=== PATIENT | female | born 1985 | race Caucasian/White ===

== ENCOUNTER 2020-06-25 16:49 | Emergency (ER) | payer BC, SELFPAY ==
--- NOTE | 2020-06-25 16:45 | RT.EKG_ITS ---
APPROVED REPORT Exam: Resting ECG Patient Location: E HR:92 bpm ECG Measurements Heart Rate 92 AXIS IL 145 P 48 QRSd 81 QRS 60 QT 376 T 61 QTc 467 Conclusion Sinus rhythm...normal P axis, V-rate 60- 99. No STEMI. I have reviewed and interpreted ECG and agree with software generated interpretation.
[2020-06-25 16:55] VITALS: BP 141/80; PULSE 109; RESP 18; TEMP 37.1; O2SAT 99
--- NOTE | 2020-06-25 17:35 | W.ED.GENAD ---
Discharge Plan Disposition Patient Disposition: HOME Condition: Stable Discharge Details Clinical Impression: Medication reaction, Anxiety Primary Care Provider: [facility],Local ED Provider: Janneth Sharif Home Meds and New Rx's Prescriptions: Continued aripiprazole [Abilify] 5 mg Tablet 2.5 mg PO QHS RF: 0 Discharge Instructions Instructions: Aripiprazole (By mouth), Anxiety (ED) Additional Instructions: Your blood work, EKG and chest x-ray today did not show any abnormal findings. It seems likely that your symptoms may be side effects from taking Abilify. Stop taking your Abilify today. Speak to your psychiatrist about starting a different antianxiety or antidepressant medication once your current symptoms resolved. Take the Ativan that you were given for home as needed for symptoms of anxiety or to help with sleep. Return immediately to the emergency department if you develop any worsening or new concerning symptoms. Discharge Data Discharge Date/Time-TO BE ENTERED AT DEPARTURE: 06/25/20 18:20 Discharge Physician: Janneth Sharif Medical Decision Making 1714 -- 34-year-old female with a history of anxiety and depression who was started on Abilify 1 week ago and has been having symptoms of restlessness, tachycardia, difficulty sleeping and anxiety since starting the medication. EKG notes a rate of 92, sinus without acute ST-T wave ischemic changes. Heart rate 109. She is afebrile and appears nontoxic but does appear mildly restless and anxious. Suspect most likely medication reaction but considering patient's age and history of Nexplanon, will check screening labs, urine , chest x-ray and give fluids and reassess. 1914 -- Labs and imaging reviewed and unremarkable. Normal d-dimer, troponin and TSH. Chest x-ray negative. Patient reassessed and she feels slightly better since arrival. She was offered a dose of Ativan but declined. We will send home with Ativan to help with sleep if needed. She is advised to stop taking her Abilify and to call her psychiatrist to be started on a different antianxiety or antidepressant medication once her symptoms resolve. Advised to follow up with the primary care doctor for re-evaluation. Usual and customary return precautions given prior to discharge. Medical Records Medical records reviewed: Yes I reviewed the patient's medical records. Imaging Data Radiologic Study: Radiologist's impression: Chest x-ray: Impression: No evidence for acute abnormality Lab Data Lab results reviewed: Yes I reviewed the patient's lab results. Labs: Laboratory Tests Range/Units 06/25/20 06/25/20 06/25/20 17:24 17:34 17:34 WBC (4.4-10.8) 10^3/uL 9.36 RBC (3.93-5.22) 10^6/uL 4.69 Hgb (11.2-15.7) g/dL 13.7 Hct (36.0-46.0) % 41.6 MCV (80-95) fL 88.7 MCH (27.0-33.0) pg 29.2 MCHC (32.0-36.0) % 32.9 RDW (11.7-14.6) % 12.0 Plt Count (130-400) 10^3/uL 392 MPV (8.0-11.0) fL 9.0 Immature Gran % 0.3 Neutrophils % 68.5 Lymphocytes % 23.9 Monocytes % 6.6 Eosinophils % 0.5 Basophils % 0.2 Nucleated RBC % % 0 Absolute Neutrophils (1.2-6.7) 10^3/uL 6.40 Absolute Lymphocytes (1.2-3.4) 10^3/uL 2.24 Absolute Monocytes (0.1-0.8) 10^3/uL 0.62 Absolute Eosinophils (0.0-0.7) 10^3/uL 0.05 Absolute Basophils (0.0-0.2) 10^3/uL 0.02 PT (9.3-11.0) sec INR (0.9-1.1) APTT (21.0-31.4) sec D-Dimer (<500) ng/mlFEU Sodium (136-145) mmol/L 139 Potassium (3.5-5.1) mmol/L 3.6 Chloride (98-107) mmol/L 102 Carbon Dioxide (21.0-32.0) mmol/L 27.0 Anion Gap (3-11) mmol/L 10.0 BUN (7-18) mg/dL 12 Creatinine (0.55-1.02) mg/dL 0.85 Estimated GFR/1.73 m2 (mL/min/1.73m2) >= 60.00 Glucose (74-106) mg/dL 112 H Calcium (8.5-10.1) mg/dL 9.2 Magnesium (1.8-2.4) mg/dL 2.1 Total Bilirubin (0.2-1.0) mg/dL 0.4 AST (15-37) U/L 17 ALT (14-59) U/L 17 Alkaline Phosphatase (46-116) U/L 52 Troponin I (<0.06) ng/mL < 0.05 Total Protein (6.4-8.2) g/dL 8.3 H Albumin (3.4-5.0) g/dL 4.1 TSH (0.36-3.74) uIU/mL 1.55 Range/Units 06/25/20 06/25/20 17:34 17:34 WBC (4.4-10.8) 10^3/uL RBC (3.93-5.22) 10^6/uL Hgb (11.2-15.7) g/dL Hct (36.0-46.0) % MCV (80-95) fL MCH (27.0-33.0) pg MCHC (32.0-36.0) % RDW (11.7-14.6) % Plt Count (130-400) 10^3/uL MPV (8.0-11.0) fL Immature Gran % Neutrophils % Lymphocytes % Monocytes % Eosinophils % Basophils % Nucleated RBC % % Absolute Neutrophils (1.2-6.7) 10^3/uL Absolute Lymphocytes (1.2-3.4) 10^3/uL Absolute Monocytes (0.1-0.8) 10^3/uL Absolute Eosinophils (0.0-0.7) 10^3/uL Absolute Basophils (0.0-0.2) 10^3/uL PT (9.3-11.0) sec 10.6 INR (0.9-1.1) 1.1 APTT (21.0-31.4) sec 26.5 D-Dimer (<500) ng/mlFEU 218 Sodium (136-145) mmol/L Potassium (3.5-5.1) mmol/L Chloride (98-107) mmol/L Carbon Dioxide (21.0-32.0) mmol/L Anion Gap (3-11) mmol/L BUN (7-18) mg/dL Creatinine (0.55-1.02) mg/dL Estimated GFR/1.73 m2 (mL/min/1.73m2) Glucose (74-106) mg/dL Calcium (8.5-10.1) mg/dL Magnesium (1.8-2.4) mg/dL Total Bilirubin (0.2-1.0) mg/dL AST (15-37) U/L ALT (14-59) U/L Alkaline Phosphatase (46-116) U/L Troponin I (<0.06) ng/mL Total Protein (6.4-8.2) g/dL Albumin (3.4-5.0) g/dL TSH (0.36-3.74) uIU/mL ECG Data Attestation: I personally reviewed and interpreted this ECG (s) as follows: Interpretation: Rate of 92, sinus, no acute ST elevation or depression. CT 145. QRS 81. QTc 467. HPI General Mode of arrival: ambulatory. Date/Time Provider Initiated Documentation: 06/25/20 17:04. Limitations to Documentation: no limitations. Information obtained by: patient. HPI Narrative: Patient is a 34-year-old female with a history of anxiety and depression who presents with feelings of anxiety, restlessness, racing heart, nausea and difficulty sleeping for the past week. Patient states she found a psychiatrist online in [place] and she started her on Abilify 1 week ago for her anxiety and depression. She states she initially started her on 5 mg daily but due to the symptoms she decreased her dose to 2.5 which she has been taking for the last couple days. She states decreasing the dose did not change any of the symptoms. She does admit to some headaches and diarrhea since starting the medication but she denies any other new medications, supplements, energy drinks, excessive caffeine use, fever, nausea, vomiting, chest pain, shortness of breath, abdominal pain, urinary symptoms, recent travel, recent known sick contacts, hallucinations. She states she does have the Nexplanon. Related Data Home Medications Medication Instructions Recorded Confirmed aripiprazole [Abilify] 2.5 mg PO QHS 06/25/20 06/25/20 Allergies Allergy/AdvReac Type Severity Reaction Status Date / Time No Known Allergies Allergy Unverified 06/25/20 18:52 General Stated Complaint: Palpitatns SARAH: 3 Review of Systems All systems reviewed & are unremarkable except as noted in HPI and below Constitutional Constitutional: Reports as per HPI, Denies chills, Reports difficulty sleeping, Denies fever(s), Reports headache(s) and Reports other (restless) Eyes Eyes: Denies blurry vision ENT Ears, Nose, Mouth, and Throat: Denies dizziness, Reports headache(s), Denies sore throat and Denies throat swelling Cardiovascular Cardiovascular: Denies chest pain, Reports rapid heart rate and Denies dyspnea Respiratory Respiratory: Denies cough and Denies dyspnea Gastrointestinal Gastrointestinal: Denies abdominal pain, Denies diarrhea and Denies vomiting Genitourinary Genitourinary: Denies hematuria and Denies dysuria Musculoskeletal Musculoskeletal: Denies back pain and Denies numbness Integumentary/Breasts Skin/Breast: Denies lesions and Denies rash Neurologic Neurologic: Denies dizziness, Reports headache(s), Denies localized weakness, Denies numbness and Reports restless legs Allergic/Immunologic Allergic/Immunologic: Denies throat swelling PFSH Medical History (Updated 06/25/20 @ 19:18 by Janneth Sharif DO) Anxiety Depression Surgical History (Updated 06/25/20 @ 19:18 by Janneth Sharif DO) No significant past surgical history Social History Smoking/Tobacco Use Status: Never Alcohol Intake: current Alcohol Intake frequency: 0-2 drinks per day Drug use: Never Substance use type: does not use Do you feel safe at home: Yes Do you feel safe in your relationship?: Yes Exam Const General: cooperative, healthy appearing, no acute distress and anxious (mild) Orientation: alert, awake and oriented x3 HENMT Head: normal to inspection Face and sinus: normal facial exam Eyes General: appearance normal, both eyes and all related structures Pupils: PERRL EOM: EOM intact bilaterally Neck Neck: normal visual inspection and No submandibular swelling Lymphatic: no lymphadenopathy noted Chest Chest: normal inspection of the chest and no tenderness Resp Effort & Inspection: normal respiratory effort and able to speak in complete sentences Auscultation: clear to auscultation bilaterally Cardio Rate: tachycardic Rhythm: regular rhythm GI Inspection: normal to inspection Palpation: soft, not firm, not rigid and nontender Auscultation: normal bowel sounds Back/Spine/Pelvis Thoracic/Lumbar Spine: thoracic and lumbar spine normal to inspection Skin General skin exam: no rashes or lesions noted Neuro General: patient alert, patient awake and patient oriented x3 Cognition: normal cognition Speech: speech normal Motor: muscle tone normal throughout Sensory Exam: no sensory deficits noted Extrem General: normal to inspection, full ROM, capillary refill normal, no calf tenderness bilaterally and no edema Psych Appearance: grossly normal Mental Status: mental status grossly normal Speech and Movement: speech and movement normal Affect: normal affect Course Vital Signs Vital signs: Vital Signs Temperature 98.8 F 06/25/20 16:55 Pulse 109 H 06/25/20 16:55 Respiratory Rate 18 06/25/20 16:55 Blood Pressure 141/80 H 06/25/20 16:55 Pulse Oximetry 99 06/25/20 16:55 Temperature 98.8 F 06/25/20 16:55 Temperature Source Temporal Artery Scan 06/25/20 16:55 Pulse 109 H 06/25/20 16:55 Respiratory Rate 18 06/25/20 16:55 Respiratory Effort Non-Labored 06/25/20 16:59 Blood Pressure 141/80 H 06/25/20 16:55 Blood Pressure Position Sitting 06/25/20 16:55 Pulse Oximetry 99 06/25/20 16:55 Oxygen Delivery Method Room Air 06/25/20 16:55 Oxygen Flow Rate 0 06/25/20 16:55
[2020-06-25 17:47] LABS: Abs Immature Grans 0.03 10^3/uL (0.0-0.06); Absolute Basophil Count 0.02 10^3/uL (0.0-0.2); Absolute Eosinophil Count 0.05 10^3/uL (0.0-0.7); Absolute Lymphocyte Count 2.24 10^3/uL (1.2-3.4); Absolute Monocyte Count 0.62 10^3/uL (0.1-0.8); Basophils % 0.2; Eosinophils % 0.5; HCT 41.6 % (36.0-46.0); HGB 13.7 g/dL (11.2-15.7); Immature Grans % 0.3; Lymphocytes % 23.9; MCH 29.2 pg (27.0-33.0); MCHC 32.9 % (32.0-36.0); MCV 88.7 fL (80-95); Monocytes % 6.6; Neutrophils % 68.5; Nucleated RBC 0 %; Platelet Count 392 10^3/uL (130-400); RBC 4.69 10^6/uL (3.93-5.22); RDW-SD 38.5 fL; WBC 9.36 10^3/uL (4.4-10.8)
[2020-06-25 18:01] LABS: INR 1.1 (0.9-1.1); PTT Activated 26.5 sec (21.0-31.4); Prothrombin Time 10.6 sec (9.3-11.0)
[2020-06-25 18:03] LABS: ALT 17 U/L (14-59); AST 17 U/L (15-37); Albumin 4.1 g/dL (3.4-5.0); Alkaline Phosphatase 52 U/L (46-116); BUN 12 mg/dL (7-18); Bilirubin, Total 0.4 mg/dL (0.2-1.0); CREATININE 0.85 mg/dL (0.55-1.02); Calcium 9.2 mg/dL (8.5-10.1); Chloride 102 mmol/L (98-107); Glucose 112 mg/dL (74-106); Magnesium 2.1 mg/dL (1.8-2.4); Potassium 3.6 mmol/L (3.5-5.1); Sodium 139 mmol/L (136-145); Total Protein 8.3 g/dL (6.4-8.2); Troponin I < 0.05 ng/mL (<0.06)
--- NOTE | 2020-06-25 18:15 | DI.RAD_ITS ---
EXAM: XR CHEST 2V PA LATERAL CLINICAL HISTORY: palpitations, r/o acute disease TECHNIQUE: 2D digital imaging was performed. COMPARISON: No exams were available for comparison FINDINGS: MEDIASTINUM: Normal. HEART: Normal. PULMONARY VASCULATURE: Normal. LUNGS: Clear. PLEURAL SPACE: No pleural effusion or pneumothorax. BONE:Within normal limits for the patient's age. OTHER FINDINGS:Normal. IMPRESSION: No acute pulmonary findings. DATA REPOSITORY: RADIATION DOSE DELIVERED:
[2020-06-25] MEDS: Normal Saline 1,000 ML 1000 ML IV (18:18)
[2020-06-25 18:22] LABS: D-Dimer 218 ng/mlFEU (<500)
[2020-06-25 18:36] LABS: TSH (W/Ref FT4) 1.55 uIU/mL (0.36-3.74)
[2020-06-25] MEDS: LORazepam 0.5 MG TAB 1 MG PO (19:21)
[2020-06-25] MEDS: Normal Saline Flush 10 ML SYR IVP (19:21)
[2020-06-25 19:27] VITALS: BP 113/60; PULSE 92; TEMP 36.7; O2SAT 97
--- NOTE | 2020-07-01 16:03 | DI.VRAD_ITS ---
PROCEDURE INFORMATION: Exam: XR Chest, 2 Views Exam date and time: 06/25/2020 6:42 PM Age: 34 years old Clinical indication: Other: Palpitations; Additional info: R/O acute disease TECHNIQUE: Imaging protocol: XR of the chest Views: 2 views. COMPARISON: No relevant prior studies available. FINDINGS: Lungs: Unremarkable. No consolidation. Pleural space: Unremarkable. No pleural effusion. No pneumothorax. Heart/Mediastinum: Unremarkable. No cardiomegaly. Bones/joints: Unremarkable. IMPRESSION: No evidence for acute abnormality. Dictated and Authenticated by: Gi Adan MD. Ordering:TINO Lagunas MD
== END 2020-06-25 18:20 | disposition home or self-care (01) ==
LOC: ER 19:15
PROVIDERS: Emergency Provider Physician Assistant
DX: F41.8 Other specified anxiety disorders (principal); R00.0 Tachycardia, unspecified; R45.1 Restlessness and agitation; T43.505A Adverse effect of unspecified antipsychotics and neuroleptics, initial encounter
CPT/HCPCS: 36415; 80053; 81025; 93005; 96360; 99285; 71046; 83735; 84443; 84484; 85025; 85379; 85610; 85730; 93010

== ENCOUNTER 2020-08-27 22:26 | Outpatient (REF) | payer BC, SELFPAY ==
[2020-08-27 22:09] LABS: Anion Gap 13.2 mmol/L (3-11); BUN 14 mg/dL (7-18); CO2 23.8 mmol/L (21.0-32.0); CREATININE 0.92 mg/dL (0.55-1.02); Calcium 9.2 mg/dL (8.5-10.1); Chloride 102 mmol/L (98-107); Glucose 92 mg/dL (74-106); Potassium 3.8 mmol/L (3.5-5.1); Sodium 139 mmol/L (136-145)
== END 2020-08-27 22:46 ==
LOC: NCHCN 22:26
PROVIDERS: PCP Nurse Practitioner Family; Visit Provider Nurse Practitioner Family
DX: Z00.00 Encounter for general adult medical examination without abnormal findings (principal)
CPT/HCPCS: 80048

== ENCOUNTER 2020-09-28 08:01 | Day surgery (SDC) | payer BC, SELFPAY ==
[2020-09-28 08:41] VITALS: BP 111/67; PULSE 69; RESP 18; TEMP 36.3; O2SAT 100
--- NOTE | 2020-09-28 10:20 | SOFT_PTH ---
PATIENT: Luana Camacho LOC: [facility] U#:[id number] AGE/SX: 34/F ROOM: RE09/28/[address]: Lydia Carl : 1985 BED: DIS: 09/28/2020 SPEC #: [id number] RECD: 09/28/20 12:08 STATUS: RACIEL REQ #: [id number] PETER: 09/28/20 10:[address]: Lydia Carl DEPT: Surgical Specimen RECD BY: Jeanna Child ENTERED: 09/28/20 12:09 SP TYPE: SOFT OTHR DR: Paula Grey Tissues: 1 - SOFT TISSUE MISC (INC. LIPOMA) Procedures: GROSS AND MICRO LEVEL 3 Comments: [id number]
[2020-09-28] MEDS: Bupivacaine 0.25% Pres-Free 30 ML VIAL ×2 (10:31)
[2020-09-28] MEDS: Bupivacaine LIPOSOME/PF 133 MG/10 ML VIAL IJ (10:31)
--- NOTE | 2020-09-28 10:54 | W.PM.DSUDISC ---
Discharge Plan Disposition Patient Disposition: HOME Condition: Good Discharge Details Reason For Visit: lipoma removal Attending Provider: Lydia Carl Primary Care Provider: Paula Grey Home Meds and New Rx's Prescriptions: New tramadol [Ultram] 50 mg tablet 50 mg PO Q6H PRNQty: 14 RF: 0 Continued bupropion HCl [Wellbutrin XL] 150 mg tablet extended release 24 hr 150 mg PO QAM RF: 0 Nexplanon 68 mg implant 1 implant subdermal ONCE RF: 0 lithium orotate PO RF: 0 Discharge Instructions Additional Instructions: Findings:lipoma fatty tumor Follow up:10 days for suture removal Please call if you develop: fevers >101.5 Nausea or Vomiting Abdominal pain that is not transient DAY SURGERY UNIT POST Procedure INSTRUCTIONS 1. Because there will be medication in your system for the next 24 hours, you may feel a little sleepy. Your coordination will be affected. Therefore: a. Do not drive or operate dangerous equipment for 24 hours. b. Do not drink alcohol beverages for 24 hours (not even beer). c. Plan to go home and rest for the day. Caring for Your Incision Pain Control Use ice! Ice keeps the swelling down and swelling is what causes pain. Never apply ice directly to the skin. Wrap it in a towel or cloth. Apply ice 20 minutes on and 20 minutes off for pain control. Use as needed. Take tylenol 325 mg by mouth with food every 4 hours as needed for pain. Or ibuprofen 600 mg by mouth with food every 6 hours as needed for pain. Do not take tylenol if you have a history of heavy drinking , hepatits C or liver problems. Do not take ibuprofen if you have a history of stomach ulcers/problems, bleeding problem or kidney issues. Types of incision closures ? Surgical stitches (sutures) are placed by sewing the edges of an incision together with surgical thread. Sutures are either absorbable or non-absorbable. Absorbable sutures break down in the body over time. Non-absorbable sutures need to be removed. ? Home care ? Always wash your hands before touching your incision. ? Keep the incision clean, dry, and out of water, keep the incision out of water. ? Do not to pick at the scabs. Scabs help protect the wound. ? You can take a shower in 24 hours and wash the incision with soap and water. Pat dry/don?t scrub. It?s OK to wash around the incision. But don?t spray water directly on it. ? Pat stitches dry if they get wet. Don't rub. ? Check the incision site daily for pain, redness, drainage, swelling, or separation of the incision edges. ? If there is a bandage (dressing) over the incision, change this every 24 hours as instructed by your provider. Using clean hands change the dressing as directed by your healthcare provider. Always wash your hands before changing your dressing. ? Make sure any clothing that touches the incision is loose-fitting. This will prevent rubbing. If the incision is on the head, keep your child from wearing caps or other head coverings. These may rub against the incision. ? Try to avoid from rough play, contact sports, or physical activities for two weeks. This can put you at risk of opening the incision. ? Make sure you avoid doing things that could cause dirt or sweat to get in or on the incision. As your incision heals, the skin may appear pink or red. It may also feel slightly bumpy or raised. This is called a healing ridge. Over time, the color should fade and the raised skin will become less noticeable. Care for specific closures : ? Sutures or evans. Once you no longer need to keep these dry, clean the incision or wound daily, generally after the first 24 hours. First remove the bandage using clean hands. Then wash the area gently with soap and warm water. Use a wet cotton swab to loosen and remove any blood or crust that forms. After cleaning, put a thin layer of antibiotic ointment on. Then put on a new bandage. Follow-up care [place] or sutures generally need to be removed in 7-10 days. Be sure to return for suture or staple removal as directed. If dissolving stitches were used in your mouth, these will not need to be removed. They should fall out or dissolve on their own. If tape closures were used, remove them yourself when your healthcare provider tells you to if they have not fallen off on their own. When to seek medical care Call your healthcare provider right away if you have any of these: ? More pain, redness, swelling, bleeding, or foul-smelling discharge around the incision area ? Fever of 101?F (38.3?C) or higher, or as directed by your child's healthcare provider ? Shaking chills ? Vomiting or nausea that doesn?t go away ? Numbness, coldness, or tingling around the incision area, or changes in skin color ? Opening of the sutures or wound Stitches or evans come apart or fall out or surgical tape falls off before 7 days, or as directed by your healthcare provider [facility] to make appt karla/ Dr. Cral in 7-10 days. [phone] Signature of Patient or Responsible Adult Escort Date/Time Name of Responsible Adult Escort Signature of Nurse Date/Time Activity:: no lifting over 10#'s x 2wks Remove Dressings/Wound Care:: 24 hours Shower/Bathe:: 24 hours Diet:: As Tolerated
--- NOTE | 2020-09-28 11:08 | ROE_ITS ---
Date of service: 09/28/20 Time of Service: 11:08 Operative Note Operative Note DATE OF PROCEDURE: 09/28/20 PRE-OP DIAGNOSIS: lipoma POST-OP DIAGNOSIS: same excision lipoma PROCEDURE: excision lipoma SURGEON: Lydia Carl ANESTHESIA: local ESTIMATED BLOOD LOSS: 5 PATHOLOGY: other COMPLICATIONS: None Patient was transported to: same day Procedure Description: The pt is here today for lipoma removal. Patient is seen in same-day surgery and marked. There is a 2 x 2 inch lipoma of the right axilla. There is no active infection/skin changes or changes in size. Informed consent obtained, explaining risks and benefits of procedure including but not limited to: Bleeding, infection, scarring, damage to nerves loss of motor function or sensory function, recurrence, chronic pain, chronic numbness, risk of scarring and disfigurement, recurrence, reaction to local anesthetics. Patient is brought to the procedure room and placed in the supine position with her right arm Placed behind her head. A timeout is performed. The area is prepped and draped in usual sterile fashion using a ChloraPrep scrub solution. 40 cc of quarter percent Marcaine was used for local anesthetization. A 1 inch incision is made over the apex of the lipoma; electrocautery is used to provide hemostasis and assist in dissection. it is grasped with a [place]. Is dissected out with combination of sharp and electrocautery as dissection. It is approximately 2 x 2 inches. There is no bleeding noted. The cavity does not require a drain. Deep tissues approximated with 3-0 Vicryl and skin is approximated with 3-0 Prolene. Sterile compression dressing is applied. Patient tolerated the procedure well without complication and transferred to the same-day surgery unit. The specimen is sent for pathology. Patient is given instructions in wound care, activity and warning signs, and will follow up in 10 days for suture removal and to review her pathology. Prescriptions include ibuprofen and Ultram.
[2020-09-28] MEDS: Acetaminophen 500 MG TAB 1000 MG PO (11:14)
[2020-09-28 11:17] VITALS: BP 117/76; PULSE 81; RESP 20; TEMP 36.2; O2SAT 99
== END 2020-09-28 11:58 | disposition home or self-care (01) ==
PROVIDERS: PCP Nurse Practitioner Family; Visit Provider Surgery
PROC: (CPT 24071; principal; 2020-09-28 09:00)
DX: Q83.1 Accessory breast (principal)
CPT/HCPCS: 24071; 88304

== ENCOUNTER 2021-11-18 13:47 | Outpatient (REF) | payer OTHER, SELFPAY ==
[2021-11-18 16:01] LABS: HCT 43.6 % (36.0-46.0); HGB 13.7 g/dL (11.2-15.7); MCH 29.2 pg (27.0-33.0); MCHC 31.4 % (32.0-36.0); MPV 9.7 fL (8.0-11.0); Platelet Count 336 10^3/uL (130-400); RBC 4.69 10^6/uL (3.93-5.22); RDW 12.4 % (11.7-14.6); RDW-SD 42.5 fL; WBC 6.63 10^3/uL (4.4-10.8)
[2021-11-18 16:48] LABS: ALT 29 U/L (14-59); AST 17 U/L (15-37); Anion Gap 7.4 mmol/L (3-11); BUN 12 mg/dL (7-18); CO2 27.6 mmol/L (21.0-32.0); CREATININE 0.9 mg/dL (0.55-1.02); Calcium 9.2 mg/dL (8.5-10.1); Calculated LDL 152 mg/dL (<100); Chloride 106 mmol/L (98-107); Cholesterol 235 mg/dL (<200); Glucose 80 mg/dL (74-106); HDL Cholesterol 55 mg/dL (40-60); Potassium 5.2 mmol/L (3.5-5.1); Sodium 141 mmol/L (136-145); Triglyceride 140 mg/dL (<150)
== END 2021-11-18 13:48 | disposition home or self-care (01) ==
LOC: NCHCN 13:47
PROVIDERS: PCP Nurse Practitioner Family; Visit Provider Nurse Practitioner Family
DX: Z00.00 Encounter for general adult medical examination without abnormal findings (principal)
CPT/HCPCS: 80048; 80061; 85027; 84450; 84460

== ENCOUNTER → 2022-01-18 00:52 | Outpatient (CLI) | payer BC, SELFPAY ==
--- NOTE | 2022-01-18 | DI.US_ITS ---
Exam(s) MG MAMMO DIAGNOSTIC BI US BREAST LT LIMITED EXAM: MAMMO DIAGNOSTIC BI CLINICAL HISTORY: DIAGNOSTIC, LUMP LT BREAST, N63.10. TECHNIQUE: Craniocaudal and mediolateral oblique Full Field Digital Mammography views with Computer Aided Diagnosis followed by Tomosynthesis and left breast ultrasound. COMPARISON: Baseline examination. FINDINGS: Mammography/Tomosynthesis: Masses/Architectural Distortion: None seen. Microcalcifictions: Scattered benign calcifications bilaterally no suspicious pleomorphic-type are se en. Skin Thickening/Nipple Retraction: None. Left breast US: Echotexture: Normal appearance of the glandular tissue. Shadowing: No suspicious foci. Cyst: 1.2 x0.9 x 1.1 centimeter simple cyst which corresponds to the palpable abnormality. Solid lesions: None seen. Ductal dilation: None. IMPRESSION: 1. 1.2 centimeter simple cyst corresponding to palpable abnormality. No evidence of malignancy is no lindsay. 2. Unless there is more urgent need, follow-up screening mammography is recommended, as per [place] [employer] guidelines. . BI-RADS Category 2 - Benign Findings Breast Density - Category C - Heterogeneously dense Breast density category C or D implies that the patient has dense breast tissue. Dense breast tissue is very common and is not abnormal but dense breast tissue can make it harder to find cancer on a ma mmogram. Also, dense breast tissue may increase their breast cancer risk. This information about the result of the mammogram report was provided to the patient to raise their awareness. Use this report when you speak with the patient about their risks for breast cancer, which includes their family hist ory. At that time, you may recommend for more screening tests (Ultrasound or MRI) as they might be us eful based on their risk. A negative radiographic report should not delay biopsy if a dominant or clinically suspicious mass is present. Up to ten percent of cancers are not identified on mammography. A negative report may reinforce clinical impression. Adenosis and dense breasts may obscure an underlying neoplasm. False positive reports average 6 to 10%. Patient will receive a letter notifying them of these results.
== END ==
PROVIDERS: PCP Nurse Practitioner Family; Visit Provider Nurse Practitioner Family
DX: N63.25 Unspecified lump in the left breast, overlapping quadrants (principal); N60.02 Solitary cyst of left breast
CPT/HCPCS: 76642; 77062; 77066; G0279

== ENCOUNTER 2022-07-12 03:20 | Outpatient (CLI) | payer BC, SELFPAY ==
[2022-07-12 11:22] LABS: Kit/Specimen SENT
[2022-07-12 11:27] LABS: Abs Immature Grans 0.03 10^3/uL (0.0-0.06); Absolute Basophil Count 0.02 10^3/uL (0.0-0.2); Absolute Eosinophil Count 0.05 10^3/uL (0.0-0.7); Absolute Lymphocyte Count 2.24 10^3/uL (1.2-3.4); Absolute Monocyte Count 0.63 10^3/uL (0.1-0.8); Basophils % 0.2; Eosinophils % 0.5; HGB 12.2 g/dL (11.2-15.7); Immature Grans % 0.3; Lymphocytes % 21.2; MCH 29.8 pg (27.0-33.0); MCV 91 fL (80-95); MPV 9.3 fL (8.0-11.0); Neutrophils % 71.8; Platelet Count 259 10^3/uL (130-400); RBC 4.09 10^6/uL (3.93-5.22); RDW 12.8 % (11.7-14.6); RDW-SD 41.9 fL; WBC 10.57 10^3/uL (4.4-10.8)
[2022-07-12 12:15] LABS: TSH (W/Ref FT4) 1.08 uIU/mL (0.36-3.74)
[2022-07-13 08:20] LABS: Hepatitis B Surface Ag Negative (Negative)
[2022-07-13 08:55] LABS: HIV-1/2 Ag & Ab Screen Negative (Negative)
[2022-07-13 09:11] LABS: Hepatitis C Ab w Rflx HCV PCR Negative (Negative)
[2022-07-13 09:43] LABS: Varicella IgG Antibody Positive (See Note)
[2022-07-13 09:48] LABS: Rubella IgG Ab (UVM) Positive (See Note)
[2022-07-13 19:53] LABS: Syphilis IgG w/Reflex Nonreactive (Nonreactive)
[2022-07-15 01:47] LABS: Specimen WB Whole Blood
[2022-08-02 22:25] LABS: Result Summary NEGATIVE; Specimen WB Whole Blood
== END 2022-07-12 03:21 | disposition home or self-care (01) ==
LOC: LBO 03:21
PROVIDERS: PCP Nurse Practitioner Family; Visit Provider Advanced Practice Midwife
DX: O09.511 Supervision of elderly primigravida, first trimester (principal); F41.8 Other specified anxiety disorders; Z36.89 Encounter for other specified antenatal screening; Z3A.11 11 weeks gestation of pregnancy
CPT/HCPCS: 36415; 81220; 81222; 81329; 86787; 86803; 86850; 86900; 86901; 87340; 87389; 84443; 85025; 86762; 86780

== ENCOUNTER 2022-07-12 11:37 | Outpatient (REF) | payer BC, SELFPAY ==
--- NOTE | 2022-07-12 10:15 | PAPFT_PTH ---
PATIENT: Luana Camacho LOC: [facility] U#:[id number] AGE/SX: 36/F ROOM: RE07/12/[address]: Myriam Kern : 1985 BED: DIS: 07/12/2022 SPEC #: [id number] RECD: 07/12/22 13:23 STATUS: RACIEL REQ #: [id number] PETER: 07/12/22 10:[address]: Myriam Kern DEPT: [facility] Cytology RECD BY: Jeanna Child ENTERED: 07/12/22 13:24 SP TYPE: PAPFT OTHR DR: Paula Grey Tissues: 1 - CX/ENDOCX FOR PAP SMEARS Procedures: PAP THIN PREP/U[facility] Screening HPV DNA PROBE Comments: [id number]
[2022-07-12 12:04] LABS: *AMPHETAMINES SCREEN URINE Negative (Negative); *BARBITURATES SCREEN URINE Negative (Negative); *BENZODIAZEPINES SCREEN URINE Negative (Negative); Cannabinoids THC Negative (Negative); Cocaine Screen,Urine Negative (Negative); METHADONE URINE SCREEN Negative (Negative); OPIATES URINE SCREEN Negative (Negative)
[2022-07-12 12:05] LABS: Tricyclic Antidepressants Negative (Negative)
[2022-07-13 15:14] LABS: Chlamydia Result Negative (Negative); GC Result Negative (Negative)
[2022-07-18 16:04] LABS: Buprenorphine Negative ng/mL (Cutoff: 5.0); Norbuprenorphine Negative ng/mL (Cutoff: 2.5)
== END 2022-07-12 11:38 | disposition home or self-care (01) ==
LOC: LBN 11:37
PROVIDERS: PCP Nurse Practitioner Family; Visit Provider Advanced Practice Midwife
DX: Z34.91 Encounter for supervision of normal pregnancy, unspecified, first trimester; Z12.4 Encounter for screening for malignant neoplasm of cervix; Z11.51 Encounter for screening for human papillomavirus (HPV); F41.9 Anxiety disorder, unspecified
CPT/HCPCS: 80307; 80348; 87491; 87591; 88142; 87086; 87624

== ENCOUNTER 2022-08-16 12:33 | Outpatient (CLI) | payer BC, SELFPAY ==
[2022-08-17 16:28] LABS: AFP 53.7 ng/mL; Cigarette smoking status non-Smoker; GA used in risk estimate Scan estimate; IVF Pregnancy No; Initial or repeat testing Initial testing; Insulin dependent diabetes No; Maternal Weight 127 lbs; Number of Fetuses 1; Physician Phone Number 802-748-7300; Prev Pregnancy w/NTD No; RECOMMENDED FOLLOW UP None.; Results Summary Normal risk
== END 2022-08-16 12:34 | disposition home or self-care (01) ==
LOC: LBO 12:38
PROVIDERS: PCP Nurse Practitioner Family; Visit Provider Advanced Practice Midwife
DX: Z34.92 Encounter for supervision of normal pregnancy, unspecified, second trimester (principal); Z3A.16 16 weeks gestation of pregnancy; Z36.89 Encounter for other specified antenatal screening
CPT/HCPCS: 36415; 82105

== ENCOUNTER 2022-11-10 02:12 | Outpatient (CLI) | payer OTHER, SELFPAY ==
[2022-11-10 09:00] LABS: HCT 35.9 % (36.0-46.0); HGB 11.7 g/dL (11.2-15.7); MCH 30.2 pg (27.0-33.0); MCHC 32.6 % (32.0-36.0); MCV 93 fL (80-95); MPV 9.4 fL (8.0-11.0); Platelet Count 217 10^3/uL (130-400); RBC 3.88 10^6/uL (3.93-5.22); RDW 12.9 % (11.7-14.6); RDW-SD 43.4 fL; WBC 9.26 10^3/uL (4.4-10.8)
[2022-11-10 09:11] LABS: Glucose,1 Hr (Glucola) 121 mg/dL (80-140)
== END 2022-11-10 02:13 | disposition home or self-care (01) ==
LOC: LBO 02:12
PROVIDERS: PCP Nurse Practitioner Family; Visit Provider Obstetrics & Gynecology Gynecology
DX: Z34.93 Encounter for supervision of normal pregnancy, unspecified, third trimester (principal); O26.893 Other specified pregnancy related conditions, third trimester; Z67.91 Unspecified blood type, Rh negative
CPT/HCPCS: 36415; 82950; 85027; 86850; 86900; 86901; 90384

== ENCOUNTER 2022-12-26 07:25 | Outpatient (CLI) | payer OTHER, SELFPAY | END 2022-12-26 08:59 | LOC: BCD 07:26 → OBS 07:43 | PROVIDERS: PCP Nurse Practitioner Family; Visit Provider Obstetrics & Gynecology ==

== ENCOUNTER 2023-01-02 08:48 | Outpatient (CLI) | payer OTHER, SELFPAY ==
[2023-01-02 09:35] VITALS: BP 115/80; PULSE 83; TEMP 36.7
[2023-01-02 09:37] VITALS: BP 115/80; PULSE 83
--- NOTE | 2023-01-02 12:03 | W.OBNST ---
Date of service: 01/02/23 Time of Service: 12:03 NST Evaluation Reason for NST Reasons for Nonstress Test: ADVANCED MATERNAL AGE Gestational Age Gestational Age in Weeks and Days: 36 Weeks and 3Days Test and Monitor Explained Test/Monitor Explained: Test Explained, Monitor Explained and Patient Verbalized Understanding Vital Signs Blood Pressure: 115/80 Pulse: 83 Temperature: 98.1 F Urine Results Urine Protein: Negative Urine Ketones: Negative Urine Glucose: Negative Urine Blood: Negative NST Information Date on Monitor: 01/02/23 Time on Monitor: 09:32 Date off Monitor: 01/02/23 Time off Monitor: 09:54 Total Time on Monitor: 22 NST Interventions: None Contraction Frequency: 1-7 NST Evaluation Patient States Movement: Present FHR Baseline: 135 Variability: Moderate 6-25 bpm Accelerations: 15x15 Decelerations: None NST Results: Reactive Note Ultrasound Done: N/A. NST Note Note: Category 1, reactive nonstress test. Intermittent irregular contractions. Cervical exam performed, cervix is fingertip, 50%, soft, posterior. Group B strep culture performed. NST Reviewed and Verified by: Jayde Ceron
[2023-01-02 12:04] VITALS: BP 115/80; PULSE 83; TEMP 36.7
== END 2023-01-02 10:16 | disposition home or self-care (01) ==
LOC: BCD 08:57 → OBS 09:34
PROVIDERS: PCP Nurse Practitioner Family; Visit Provider Obstetrics & Gynecology
DX: O09.523 Supervision of elderly multigravida, third trimester (principal); Z3A.36 36 weeks gestation of pregnancy
CPT/HCPCS: 59025; 87081

== ENCOUNTER 2023-01-05 07:43 | Outpatient (CLI) | payer OTHER, SELFPAY ==
[2023-01-05 09:21] VITALS: BP 123/77; PULSE 81; TEMP 36.7
[2023-01-05 09:23] VITALS: BP 123/77; PULSE 81
--- NOTE | 2023-01-09 19:14 | W.OBNST ---
Date of service: 01/05/23 Time of Service: 19:14 NST Evaluation Reason for NST Reasons for Nonstress Test: ADVANCED MATERNAL AGE Gestational Age Gestational Age in Weeks and Days: 37 Weeks and 3Days Test and Monitor Explained Test/Monitor Explained: Test Explained, Monitor Explained and Patient Verbalized Understanding Vital Signs Blood Pressure: 123/77 Pulse: 81 Temperature: 98.1 F NST Information Date on Monitor: 01/05/23 Time on Monitor: 09:22 Date off Monitor: 01/05/23 Time off Monitor: 09:45 Total Time on Monitor: 23 NST Interventions: PO Hydration Contraction Frequency: 2-4 NST Evaluation Patient States Movement: Present FHR Baseline: 135 Variability: Moderate 6-25 bpm Accelerations: 15x15 Decelerations: None NST Results: Reactive Note Ultrasound Done: N/A. NST Note Note: Patient notified that GBS rectovaginal culture was negative. She will continue to follow-up with twice weekly NSTs. NST Reviewed and Verified by: Sherrill Gardiner
[2023-01-09 19:15] VITALS: BP 123/77; PULSE 81; TEMP 36.7
== END 2023-01-05 09:54 | disposition home or self-care (01) ==
LOC: BCD 07:55 → OBS 09:02
PROVIDERS: PCP Nurse Practitioner Family; Visit Provider Obstetrics & Gynecology Gynecology
DX: O09.523 Supervision of elderly multigravida, third trimester (principal); Z3A.37 37 weeks gestation of pregnancy
CPT/HCPCS: 59025

== ENCOUNTER 2023-01-09 09:27 | Outpatient (CLI) | payer OTHER, SELFPAY ==
[2023-01-09 09:38] VITALS: BP 114/70; PULSE 88; TEMP 36.7
[2023-01-09 09:40] VITALS: BP 114/70; PULSE 88
--- NOTE | 2023-01-09 19:19 | W.OBNST ---
Date of service: 01/09/23 Time of Service: 19:19 NST Evaluation Reason for NST Reasons for Nonstress Test: ADVANCED MATERNAL AGE Gestational Age Gestational Age in Weeks and Days: 37 Weeks and 3Days Test and Monitor Explained Test/Monitor Explained: Test Explained, Monitor Explained and Patient Verbalized Understanding Vital Signs Blood Pressure: 114/70 Pulse: 88 Temperature: 98.0 F Urine Results Urine Protein: Negative Urine Ketones: Negative Urine Glucose: Negative Urine Blood: Negative NST Information Date on Monitor: 01/09/23 Time on Monitor: 09:29 Date off Monitor: 01/09/23 Time off Monitor: 09:51 Total Time on Monitor: 22 NST Interventions: PO Hydration Contraction Frequency: 6-10 NST Evaluation Patient States Movement: Present FHR Baseline: 135 Variability: Moderate 6-25 bpm Accelerations: 15x15 Decelerations: None NST Results: Reactive Note Ultrasound Done: N/A. NST Note NST Reviewed and Verified by: Sherrill Gardiner
[2023-01-09 19:20] VITALS: BP 114/70; PULSE 88; TEMP 36.7
== END 2023-01-09 10:10 | disposition home or self-care (01) ==
LOC: BCD 09:28 → OBS 09:36
PROVIDERS: PCP Nurse Practitioner Family; Visit Provider Obstetrics & Gynecology Gynecology
DX: O09.523 Supervision of elderly multigravida, third trimester (principal); Z3A.37 37 weeks gestation of pregnancy
CPT/HCPCS: 59025

== ENCOUNTER 2023-01-12 07:20 | Outpatient (CLI) | payer OTHER, SELFPAY ==
[2023-01-12 09:38] VITALS: BP 121/88; PULSE 88; TEMP 36.5
[2023-01-12 09:50] VITALS: BP 121/88; PULSE 104
[2023-01-12 09:52] VITALS: BP 119/73; PULSE 88
--- NOTE | 2023-01-12 22:35 | W.OBNST ---
Date of service: 01/12/23 Time of Service: 22:35 NST Evaluation Reason for NST Reasons for Nonstress Test: ADVANCED MATERNAL AGE Gestational Age Gestational Age in Weeks and Days: 37 Weeks and 6Days Test and Monitor Explained Test/Monitor Explained: Test Explained, Monitor Explained and Patient Verbalized Understanding Vital Signs Blood Pressure: 121/88 Pulse: 88 Temperature: 97.7 F NST Information Date on Monitor: 01/12/23 Time on Monitor: 09:39 Date off Monitor: 01/12/23 Time off Monitor: 09:58 Total Time on Monitor: 19 NST Interventions: None NST Evaluation Patient States Movement: Present FHR Baseline: 130 Variability: Moderate 6-25 bpm Accelerations: 15x15 Decelerations: None NST Results: Reactive Note Ultrasound Done: N/A. NST Note Note: Briefly discussed timing of induction of labor with patient. I recommended considering induction of labor between 39 and 40 weeks EGA. We will discuss further at the time of her next NST. NST Reviewed and Verified by: Sherrill Gardiner
[2023-01-12 22:36] VITALS: BP 121/88; PULSE 88; TEMP 36.5
== END 2023-01-12 10:00 | disposition home or self-care (01) ==
LOC: BCD 07:21 → OBS 09:37
PROVIDERS: PCP Nurse Practitioner Family; Visit Provider Obstetrics & Gynecology Gynecology
DX: O09.523 Supervision of elderly multigravida, third trimester (principal); Z3A.37 37 weeks gestation of pregnancy
CPT/HCPCS: 59025

== ENCOUNTER 2023-01-16 07:40 | Outpatient (REF) | payer OTHER, SELFPAY ==
[2023-01-16 09:43] VITALS: BP 124/77; PULSE 81; TEMP 36.8
[2023-01-16 10:04] VITALS: BP 124/77; PULSE 81
== END 2023-01-16 10:45 | disposition home or self-care (01) ==
LOC: BCD 07:40
PROVIDERS: PCP Nurse Practitioner Family; Visit Provider Obstetrics & Gynecology Gynecology
DX: O09.529 Supervision of elderly multigravida, unspecified trimester (principal)
CPT/HCPCS: 59025

== ENCOUNTER 2023-01-19 07:38 | Outpatient (CLI) | payer OTHER, SELFPAY ==
[2023-01-19 09:34] VITALS: BP 114/75; PULSE 73; TEMP 36.5
[2023-01-19 10:34] VITALS: BP 114/75; PULSE 73; TEMP 36.5
--- NOTE | 2023-01-19 10:34 | W.OBNST ---
Date of service: 01/19/23 Time of Service: 10:34 NST Evaluation Reason for NST Reasons for Nonstress Test: ADVANCED MATERNAL AGE Gestational Age Gestational Age in Weeks and Days: 38 Weeks and 6Days Test and Monitor Explained Test/Monitor Explained: Test Explained, Monitor Explained and Patient Verbalized Understanding Vital Signs Blood Pressure: 114/75 Pulse: 73 Temperature: 97.7 F Urine Results Urine Protein: Positive Urine Ketones: Negative Urine Glucose: Negative Urine Blood: Negative NST Information Date on Monitor: 01/19/23 Time on Monitor: 09:08 Date off Monitor: 01/19/23 Time off Monitor: 09:43 Total Time on Monitor: 35 NST Interventions: PO Hydration Contraction Frequency: Occasional NST Evaluation Patient States Movement: Present FHR Baseline: 125 Variability: Moderate 6-25 bpm Accelerations: 15x15 Decelerations: None NST Results: Reactive Note Ultrasound Done: N/A. NST Note Note: Category 1, reactive nonstress test. Follow-up as scheduled. NST Reviewed and Verified by: Jayde Ceron
== END 2023-01-19 09:45 | disposition home or self-care (01) ==
LOC: BCD 07:45 → OBS 09:32
PROVIDERS: PCP Nurse Practitioner Family; Visit Provider Obstetrics & Gynecology Gynecology
DX: O09.523 Supervision of elderly multigravida, third trimester (principal); Z3A.38 38 weeks gestation of pregnancy
CPT/HCPCS: 59025

== ENCOUNTER 2023-01-23 08:47 | Outpatient (CLI) | payer OTHER, SELFPAY ==
[2023-01-23 09:33] VITALS: BP 130/78; PULSE 73; TEMP 36.7
[2023-01-23 09:37] VITALS: BP 130/78; PULSE 73
[2023-01-23 09:47] VITALS: BP 132/83; PULSE 67
--- NOTE | 2023-01-26 17:21 | W.OBNST ---
Date of service: 01/26/23 Time of Service: 17:21 NST Evaluation Reason for NST Reasons for Nonstress Test: ADVANCED MATERNAL AGE Gestational Age Gestational Age in Weeks and Days: 39 Weeks and 6Days Test and Monitor Explained Test/Monitor Explained: Test Explained, Monitor Explained and Patient Verbalized Understanding Vital Signs Blood Pressure: 130/78 Pulse: 73 Temperature: 98.1 F NST Information Date on Monitor: 01/23/23 Time on Monitor: 09:34 Date off Monitor: 01/23/23 Time off Monitor: 09:47 Total Time on Monitor: 13 NST Interventions: PO Hydration Contraction Frequency: 3-5 NST Evaluation Patient States Movement: Present FHR Baseline: 130 Variability: Moderate 6-25 bpm Accelerations: 15x15 Decelerations: None NST Results: Reactive Note Ultrasound Done: N/A. NST Note Note: Repeat blood pressure 128/80. No headache no right upper quadrant pain no lower extremity edema. I reviewed signs and symptoms of preeclampsia. The patient will follow-up in 4 days for repeat NST secondary to advanced maternal age. She declines a induction of labor at this time. NST Reviewed and Verified by: Sherrill Gardiner
[2023-01-26 17:22] VITALS: BP 130/78; PULSE 73; TEMP 36.7
== END 2023-01-23 10:00 | disposition home or self-care (01) ==
LOC: BCD 08:50 → OBS 09:31
PROVIDERS: PCP Nurse Practitioner Family; Visit Provider Obstetrics & Gynecology Gynecology
DX: Z3A.39 39 weeks gestation of pregnancy (principal); O09.523 Supervision of elderly multigravida, third trimester
CPT/HCPCS: 59025

== ENCOUNTER 2023-01-26 07:27 | Outpatient (CLI) | payer OTHER, SELFPAY ==
[2023-01-26 09:35] VITALS: BP 117/79; PULSE 67; TEMP 36.8
[2023-01-26 09:37] VITALS: BP 117/79; PULSE 67
[2023-01-26 10:04] VITALS: BP 123/81; PULSE 74
--- NOTE | 2023-01-26 17:17 | PDOC.NST_ITS ---
Date of service: 01/26/23 Time of Service: 17:17 NST Evaluation Reason for NST Reasons for Nonstress Test: ADVANCED MATERNAL AGE Gestational Age Gestational Age in Weeks and Days: 39 Weeks and 6Days Test and Monitor Explained Test/Monitor Explained: Test Explained, Monitor Explained and Patient Verbalized Understanding Vital Signs Blood Pressure: 117/79 Pulse: 67 Temperature: 98.2 F NST Information Date on Monitor: 01/26/23 Time on Monitor: 09:36 Date off Monitor: 01/26/23 Time off Monitor: 10:00 Total Time on Monitor: 24 NST Interventions: PO Hydration Contraction Frequency: 2 contractions NST Evaluation Patient States Movement: Present FHR Baseline: 130 Variability: Moderate 6-25 bpm Accelerations: 15x15 Decelerations: None NST Results: Reactive Note Ultrasound Done: N/A. NST Note Note: Patient presents for scheduled twice weekly NST for advanced maternal age. Patient reports [place] contractions but no evidence of labor. No complaints of headache or lower extremity edema. SVE: Closed mid position -1 vertex. Discussed with patient induction of labor after 40 weeks. She will consider scheduling a date when she is seen for her repeat NST on 01/30/2023. NST Reviewed and Verified by: Sherrill Gardiner
[2023-01-26 17:19] VITALS: BP 117/79; PULSE 67; TEMP 36.8
== END 2023-01-26 10:09 | disposition home or self-care (01) ==
LOC: BCD 07:29 → OBS 09:15
PROVIDERS: PCP Nurse Practitioner Family; Visit Provider Obstetrics & Gynecology Gynecology
DX: O09.523 Supervision of elderly multigravida, third trimester (principal); Z3A.39 39 weeks gestation of pregnancy
CPT/HCPCS: 59025

== ENCOUNTER 2023-01-29 06:30 | Inpatient (IN) | payer OTHER, SELFPAY ==
[2023-01-29] VITALS (216 sets, daily range): BP systolic 68–188; BP diastolic 37–133; PULSE 0–113; RESP 14–20; TEMP 36.4–37.2; O2SAT 91–99; BMI 31.3
--- NOTE | 2023-01-29 06:38 | HPE_ITS ---
Date of service: 01/29/23 Time of Service: 06:38 Assessment and Plan Assessment and plan (1) Rh negative state in antepartum period: Status: Acute (2) Threatened labor at term: Status: Acute Assessment and plan: SROM approximately 3 hours ago. Clear amniotic fluid GBS negative. I recommended oxytocin augmentation of labor if the patient is not experiencing regular uterine contractions approximately 3 hours. CMP has been ordered along with CBC and type and screen. OB-HPI Labor/Delivery History of Present Illness Reason for Visit: [id number] EGA, SROM Group B Strep Neg Chief Complaint: Suspected Rupture of Membranes , Associated Signs and Symptoms of Suspected ROM: 0430 awakened with clear fluid on pad. KENYA Calculator Estimated Delivery Date Method Current WG Current Estimate 01/27/23 Ultrasound #1 40w 2d Other Estimates 01/19/23 LMP (Uncertain) 41w 3d History of Present Expected Delivery Route/Plan - FOB - Jimmy Santacruz (his first child) Specific Issues/Plan 1. History of anxiety and depression- no meds currently and doing well. 3. Advanced maternal age - level [address] [facility] sent, ASA recommended daily due to hypertension risk -Presumed EDC discrepancy because [facility] had incorrect EDC from our records and thought there was a 2wk discrepancy. -KENYA 01/27/23 based on 8.4wk sono done here (8 days off from LMP dating and she had irregular cycles) 4. Rh neg, rhogam 28 weeks____ 5. SMA neg, CF neg, MS AFP = nml risk for NTD 2. Vaccinated against covid - booster 07/08 - Had covid 2021. Assessment: History Reviewed & Current Narrative: 18 visits, including NSTs, Rh-, GBS negative, rubella immune varicella immune. Twice-weekly NSTs after 36 weeks secondary to advanced maternal age. Informed Consent Informed Consent: Risk,Benefits,Alternatives Discussed (admission) Review of Systems Constitutional Constitutional: Reports system reviewed and no additional complaints, except as documented and Reports body ache(s) PFSH All Active Problems (Updated 01/29/23 @ 07:12 by Sherrill Gardiner MD) Threatened labor at term (Acute) Rh negative state in antepartum period (Acute) Advanced maternal age, 1st (Acute) (Acute) Lipoma of breast (Acute) per referral note left axilla Medical History (Updated 01/29/23 @ 07:12 by Sherrill Gardiner MD) Anxiety Depression buproprion in the past Surgical History No significant past surgical history Family History (Updated 07/12/22 @ 09:46 by Myriam Kern CNM) Maternal Grandfather Heart disease Paternal Grandfather Cancer Social History Smoking/Tobacco Use Status: Never Smoking risk assessment performed?: Yes Alcohol Intake: current Alcohol Intake frequency: a few times a week Alcohol type: hard liquor Drug use: Occasionally Details: mushrooms, t-14, alcohol, t-3 Current gender identity: female Do you feel safe at home: Yes Do you feel safe in your relationship?: Yes History History 1 Para 0 Hx # Term Pregnancies Multiple births Hx # Pregnancies Ectopic pregnancies AB induced Hx Number of Living Children AB spontaneous Meds Allergies and Home Medications Allergies Allergy/AdvReac Type Severity Reaction Status Date / Time lamotrigine [From Lamictal] Allergy Intermediate pain in Verified 12/22/22 15:34 neck, feverish aripiprazole [From Abilify] AdvReac Intermediate Started to Verified 12/22/22 15:34 feel weak and off Home Medications Medication Instructions Recorded Confirmed Type omega 1-ycx-vsr-fish oil 100 cap PO 06/21/22 01/08/23 History mg-160 mg-1,000 mg capsule (Fish Oil) prenat.vits,jeffery,nri-kxdq-pblnt 1 tab PO DAILY 06/21/22 01/08/23 History aspirin 81 mg chewable tablet 81 mg PO DAILY 08/09/22 01/08/23 History Exam Physical Exam Vital signs: Temp Pulse Resp BP 97.8 F 74 16 133/82 01/29/23 06:14 01/29/23 06:14 01/29/23 06:14 01/29/23 06:14 Vital Signs Reviewed: Yes Notable Details: Patient blood pressure has ranged in the 130/80s last week. Narrative: No complaints of headache, no visual changes Constitutional Constitutional: no acute distress Comments: Patient unaware of contractions at this time Detailed Labor and Delivery Exam Dilation: 1 Effacement (%): 25 station: -2 Cervix position: mid Consistency: firm Venegas Score: Cervical Points Exam 0 1 2 3 Dilation Closed 1-2cm 3-4 cm 5-6cm Effacement 0-30% 40-50% 60-70% 80% Consistency Firm Medium Soft Station -3 -2 -1,0 +1,+2 Position Posterior Mid Anterior VENEGAS Score(Cervical Ripeness Score): 4 Amniotic Membrane Status: Ruptured (As demonstrated by nitrazine exam and pooling in the vagina) Rupture Method: Spontaneous Amniotic Fluid: Clear Pooling: Positive Nitrazine: Positive Monitor Mode: External Contraction Frequency(min): 4 Contraction Duration(sec): 40 Contraction Intensity: Mild Fetus A Heart Rate Baseline: 150 Monitor Accelerations: 15 X 15 Monitor Decelerations: None Variability: Moderate (6-25 BPM) Presentation: Cephalic Categories: Category I Est. Weight: 3600 lb Date of Membrane Rupture: 01/29/23 Time of Membrane Rupture: 04:30 HEENT Exam HEENT Exam: Normal Neck Exam Neck Exam: Normal Chest/Brest/Axilla Exam Chest Exam: Not Done Breast Exam Breast Exam: Not Done Respiratory Exam Respiratory Exam: Normal Cardiovascular Exam Cardiovascular Exam: Normal Abdominal Exam Abdominal Exam: Normal (Abdominal tenderness) Rectal Exam Rectal Exam: Not Done Exam Exam: Normal Extremities Exam Extremities Exam: Normal Back/Spine/Pelvis Exam Back Exam: Normal Skin Exam Skin Exam: Normal (Tattoos present) Neurological Exam Neurological Exam: Normal (2+ DTRs lower extremities 1 beat of clonus bilaterally) Psychiatric Exam Psychiatric Exam: Normal Risk Assessment Risk for Shoulder Dystocia Historical/Initial OB: NEGATIVE FOR: Pelvic Abnormality, Pre- BMI>30, Previous Shoulder Dystocia or Previous Macrosomia Risk for Pre-Eclampsia Yes, if one or more: NEGATIVE FOR: Hx Pre-E/Gest HTN, Chronic HTN, Multiple Gestation, Pre-gestational DM, Renal Disease, Systemic Lupus or APA Syndrome Yes, if 2 or more: POSITIVE FOR: Nulliparity and Age>= 35 yrs Risk for Post- Hemorrhage Initial: NEGATIVE FOR: Multiple Gestation, Previous PPH, Known Clotting Deficiency, Grand Multiparity or Anticoagulation Risks Reviewed Risks Reviewed Upon Admission: Yes
[2023-01-29] MEDS: Normal Saline Flush 10 ML SYR IVP (08:56)
[2023-01-29 09:00] LABS: HCT 37.3 % (36.0-46.0); HGB 12.5 g/dL (11.2-15.7); MCH 30.3 pg (27.0-33.0); MCHC 33.5 % (32.0-36.0); MCV 90 fL (80-95); MPV 10.8 fL (8.0-11.0); Platelet Count 194 10^3/uL (130-400); RBC 4.13 10^6/uL (3.93-5.22); RDW 13.6 % (11.7-14.6); RDW-SD 44.1 fL; WBC 8.86 10^3/uL (4.4-10.8)
[2023-01-29 09:17] LABS: ALT 23 U/L (14-59); AST 19 U/L (15-37); Albumin 2.8 g/dL (3.4-5.0); Alkaline Phosphatase 141 U/L (46-116); BUN 11 mg/dL (7-18); Bilirubin, Total 0.3 mg/dL (0.2-1.0); CREATININE 0.8 mg/dL (0.55-1.02); Calcium 9.1 mg/dL (8.5-10.1); Chloride 101 mmol/L (98-107); Estimated GFR 98.48 (mL/min/1.73m2); Glucose 87 mg/dL (74-106); Potassium 3.9 mmol/L (3.5-5.1); Sodium 133 mmol/L (136-145); Total Protein 7.5 g/dL (6.4-8.2)
--- NOTE | 2023-01-29 11:07 | W.PM.OBNL1 ---
Date of service: 01/29/23 Time of Service: 11:07 Informed Consent Informed Consent: Risk,Benefits,Alternatives Discussed (admission) Pelvic Exam Dilation: 1 Effacement (%): 50 station: -2 Cervix Position: mid Assessment and Plan Assessment and plan (1) Normal labor: Status: Acute Assessment and plan: Spontaneous rupture of membranes greater than 6 hours. Irregular contractions. We will begin Pitocin augmentation of labor. Risks and benefits discussed Objective Abnormal lab results 01/29/23 Range/Units 08:46 Sodium 133 L (136-145) mmol/L Alkaline Phosphatase 141 H (46-116) U/L Albumin 2.8 L (3.4-5.0) g/dL Temp Pulse Resp BP 98.4 F 14 L 14 122/74 01/29/23 07:55 01/29/23 07:55 01/29/23 07:55 01/29/23 07:55 Laboratory Results WBC 8.86 10^3/uL (4.4-10.8) 01/29/23 08:46 RBC 4.13 10^6/uL (3.93-5.22) 01/29/23 08:46 Hgb 12.5 g/dL (11.2-15.7) 01/29/23 08:46 Hct 37.3 % (36.0-46.0) 01/29/23 08:46 MCV 90 fL (80-95) 01/29/23 08:46 MCH 30.3 pg (27.0-33.0) 01/29/23 08:46 MCHC 33.5 % (32.0-36.0) 01/29/23 08:46 RDW 13.6 % (11.7-14.6) 01/29/23 08:46 Plt Count 194 10^3/uL (130-400) 01/29/23 08:46 MPV 10.8 fL (8.0-11.0) 01/29/23 08:46 Sodium 133 mmol/L (136-145) L 01/29/23 08:46 Potassium 3.9 mmol/L (3.5-5.1) 01/29/23 08:46 Chloride 101 mmol/L (98-107) 01/29/23 08:46 Carbon Dioxide 24.0 mmol/L (21.0-32.0) 01/29/23 08:46 Anion Gap 8.0 mmol/L (3-11) 01/29/23 08:46 BUN 11 mg/dL (7-18) 01/29/23 08:46 Creatinine 0.8 mg/dL (0.55-1.02) 01/29/23 08:46 Est GFR (CKD-EPI 2020) 98.48 (mL/min/1.73m2) 01/29/23 08:46 Glucose 87 mg/dL (74-106) 01/29/23 08:46 Calcium 9.1 mg/dL (8.5-10.1) 01/29/23 08:46 Total Bilirubin 0.3 mg/dL (0.2-1.0) 01/29/23 08:46 AST 19 U/L (15-37) 01/29/23 08:46 ALT 23 U/L (14-59) 01/29/23 08:46 Alkaline Phosphatase 141 U/L (46-116) H 01/29/23 08:46 Total Protein 7.5 g/dL (6.4-8.2) 01/29/23 08:46 Albumin 2.8 g/dL (3.4-5.0) L 01/29/23 08:46 Subjective Interval history since last seen: Patient seen and examined. Occasional irregular contractions. Fetus. No Results Hemoglobin/Hematocrit: Hgb 12.5 g/dL (11.2-15.7) 01/29/23 08:46 Hct 37.3 % (36.0-46.0) 01/29/23 08:46 Abnormal Lab Findings: Abnormal Labs 01/29/23 08:46 Sodium 133 L Alkaline Phosphatase 141 H Albumin 2.8 L
[2023-01-29] MEDS: Lactated Ringers 1,000 ML 125 ML IV ×2 (13:15→20:41)
[2023-01-29] MEDS: Oxytocin/Normal Saline 30 UNIT/500 ML BAG 2 UNITS IV (13:16)
[2023-01-29] MEDS: Acetaminophen 325 MG TAB 650 MG PO (14:49)
--- NOTE | 2023-01-29 20:24 | NUR.NOTE ---
Nursing Note:Cxs noted to be coupling and tripling. Pt shown position changes/maneuvers to assist with descent. Lunges were previously performed, one leg up on stool etc... frequent position changes encouraged
--- NOTE | 2023-01-29 21:36 | W.PM.OBNL1 ---
Date of service: 01/29/23 Time of Service: 21:37 Informed Consent Informed Consent: Risk,Benefits,Alternatives Discussed (admission) Pelvic Exam Dilation: 3 Effacement (%): 80 station: -2 Position: OA Cervix Position: mid Contractions Contraction Frequency(min): 3 Contraction Duration(sec): Plan60 Fetus A Heart Rate Baseline: 125 Presentation: Cephalic Variability: Moderate (6-25 BPM) Categories: Category I Accelerations: 15 X 15 Assessment and Plan Assessment and plan (1) Normal labor: Status: Acute Assessment and plan: Normal rhythm, no centimeters. Rupture of membranes at 0430. We will begin antibiotics at 24 hours rupture. Patient requesting epidural. Anesthesia notified. Objective Abnormal lab results 01/29/23 Range/Units 08:46 Sodium 133 L (136-145) mmol/L Alkaline Phosphatase 141 H (46-116) U/L Albumin 2.8 L (3.4-5.0) g/dL Temp Pulse Resp BP Pulse Ox 98.2 F 67 20 128/62 97 01/29/23 19:09 01/29/23 21:35 01/29/23 19:09 01/29/23 20:20 01/29/23 19:09 Laboratory Results WBC 8.86 10^3/uL (4.4-10.8) 01/29/23 08:46 RBC 4.13 10^6/uL (3.93-5.22) 01/29/23 08:46 Hgb 12.5 g/dL (11.2-15.7) 01/29/23 08:46 Hct 37.3 % (36.0-46.0) 01/29/23 08:46 MCV 90 fL (80-95) 01/29/23 08:46 MCH 30.3 pg (27.0-33.0) 01/29/23 08:46 MCHC 33.5 % (32.0-36.0) 01/29/23 08:46 RDW 13.6 % (11.7-14.6) 01/29/23 08:46 Plt Count 194 10^3/uL (130-400) 01/29/23 08:46 MPV 10.8 fL (8.0-11.0) 01/29/23 08:46 Sodium 133 mmol/L (136-145) L 01/29/23 08:46 Potassium 3.9 mmol/L (3.5-5.1) 01/29/23 08:46 Chloride 101 mmol/L (98-107) 01/29/23 08:46 Carbon Dioxide 24.0 mmol/L (21.0-32.0) 01/29/23 08:46 Anion Gap 8.0 mmol/L (3-11) 01/29/23 08:46 BUN 11 mg/dL (7-18) 01/29/23 08:46 Creatinine 0.8 mg/dL (0.55-1.02) 01/29/23 08:46 Est GFR (CKD-EPI 2020) 98.48 (mL/min/1.73m2) 01/29/23 08:46 Glucose 87 mg/dL (74-106) 01/29/23 08:46 Calcium 9.1 mg/dL (8.5-10.1) 01/29/23 08:46 Total Bilirubin 0.3 mg/dL (0.2-1.0) 01/29/23 08:46 AST 19 U/L (15-37) 01/29/23 08:46 ALT 23 U/L (14-59) 01/29/23 08:46 Alkaline Phosphatase 141 U/L (46-116) H 01/29/23 08:46 Total Protein 7.5 g/dL (6.4-8.2) 01/29/23 08:46 Albumin 2.8 g/dL (3.4-5.0) L 01/29/23 08:46 Patient ABO/Rh A Negative 01/29/23 08:46 Antibody Screen POSITIVE 01/29/23 08:46 Antibody Identification Anti-D 01/29/23 08:46 Subjective Interval history since last seen: Patient seen. She has had a large gush of fluid and more intense now than uterine contractions. Michael every 3 minutes. Pitocin is at 18. heart is 120s moderate variability, category 1 strip. Significant cervical change with cervix 3 cm, 80%, -2 station. Requesting epidural. Anesthesia notified. Results Hemoglobin/Hematocrit: Hgb 12.5 g/dL (11.2-15.7) 01/29/23 08:46 Hct 37.3 % (36.0-46.0) 01/29/23 08:46 Abnormal Lab Findings: Abnormal Labs 01/29/23 08:46 Sodium 133 L Alkaline Phosphatase 141 H Albumin 2.8 L
--- NOTE | 2023-01-29 21:37 | NUR.NOTE ---
Nursing Note: Pt requesting epidural. SVE by Dr Ceron. Pt teaching performed regarding epidural etc.
--- NOTE | 2023-01-29 22:06 | ANES.PREOP_ITS ---
General Info Date of Service Date Performed: 01/29/23 Height: 4 ft 11 in Weight: 70.307 kg Body Mass Index (BMI): 31.3 Meds Allergies and Home Medications Allergies Allergy/AdvReac Type Severity Reaction Status Date / Time lamotrigine [From Lamictal] Allergy Intermediate pain in Verified 12/22/22 15:34 neck, feverish aripiprazole [From Abilify] AdvReac Intermediate Started to Verified 12/22/22 15:34 feel weak and off Home Medication Medication Instructions Recorded omega 2-aef-qmg-fish oil 100 cap PO 06/21/22 mg-160 mg-1,000 mg capsule (Fish Oil) prenat.vits,jeffery,grd-tifu-yydhy 1 tab PO DAILY 06/21/22 aspirin 81 mg chewable tablet 81 mg PO DAILY 08/09/22 Current Visit Medications: Current Medications Generic Name Dose Route Start Last Admin Trade Name Freq PRN Reason Stop Dose Admin Acetaminophen 650 mg 01/29/23 14:43 01/29/23 14:49 Acetaminophen 325 Mg Tab PO 650 mg Q4H PRN PRN Administration Ephedrine Sulfate 5 mg 01/29/23 21:52 Ephedrine 50 Mg/Ml Vial IVP DIRECTED PRN Sodium Chloride 500 mls @ 0 mls/hr 01/29/23 06:30 Saline 500ml Bag IV PRN PRN As Directed Ringer's Solution 1,000 mls @ 125 mls/hr 01/29/23 06:30 01/29/23 22:02 IV 500 mls/hr INFUSION KAMERON Infusion Oxytocin/Sodium Chloride 30 unit in 500 mls @ 1 mls/hr 01/29/23 11:15 01/15 02/06 21:15 Pitocin/Normal Saline IV 18 milliunits/min INFUSION KAMERON 18 mls/hr Titration Protocol 1 MILLIUNITS/MIN Ringer's Solution 250 mls @ 500 mls/hr 01/29/23 21:52 IV 01/29/23 22:21 BOLUS ONE IV Miscellaneous Supplies 1 each 01/29/23 06:30 Iv Access IV DIRECTED KAMERON Naloxone HCl 0 mg 01/29/23 21:52 Naloxone 0.4 Mg/Ml Vial IVP DIRECTED PRN Sodium Chloride 0 ml 01/29/23 06:30 01/29/23 08:56 Normal Saline Flush 10 Ml Syr IVP 10 ml PRN PRN Administration PFSH Active Problems Active Problems: Problem Status Onset Code Normal labor O80, Z37.9 Threatened labor at term O47.9 Rh negative state in antepartum period O26.899, Z67.91 Advanced maternal age, 1st O09.519 Z34.90 Lipoma of breast D17.1 Medical History Medical History (Updated 01/29/23 @ 11:08 by Jayde Ceron DO) Anxiety Depression buproprion in the past Surgical History Surgical History No significant past surgical history Tobacco Smoking/Tobacco Use Status: Never Alcohol Alcohol Intake: current Alcohol intake frequency: a few times a week Alcohol type: hard liquor Substance Use Substance use: Occasionally Details: mushrooms, t-14, alcohol, t-3 Prental History History 1 Para 0 Hx # Term Pregnancies Multiple births Hx # Pregnancies Ectopic pregnancies AB induced Hx Number of Living Children AB spontaneous Vital Signs and Lab Results Vital Signs Most Recent Vital Signs in EMR: Most Recent Vital Signs Temp Pulse Resp BP Pulse Ox 36.9 C 81 20 128/62 97 01/29/23 21:37 01/29/23 22:03 01/29/23 19:09 01/29/23 20:20 01/29/23 19:09 Lab Results 01/29/23 08:46 01/29/23 08:46 Blood Type / Crossmatch: Patient ABO/Rh A Negative 01/29/23 Antibody Screen POSITIVE 01/29/23 Complete Blood Count: White Blood Count 8.86 10^3/uL (4.4-10.8) 01/29/23 08:46 Red Blood Count 4.13 10^6/uL (3.93-5.22) 01/29/23 08:46 Hemoglobin 12.5 g/dL (11.2-15.7) 01/29/23 08:46 Hematocrit 37.3 % (36.0-46.0) 01/29/23 08:46 Platelet Count 194 10^3/uL (130-400) 01/29/23 08:46 Complete Metabolic Panel: Sodium 133 mmol/L (136-145) L 01/29/23 08:46 Potassium 3.9 mmol/L (3.5-5.1) 01/29/23 08:46 Chloride 101 mmol/L (98-107) 01/29/23 08:46 Carbon Dioxide 24.0 mmol/L (21.0-32.0) 01/29/23 08:46 BUN 11 mg/dL (7-18) 01/29/23 08:46 Creatinine 0.8 mg/dL (0.55-1.02) 01/29/23 08:46 Est GFR (CKD-EPI 2020) 98.48 (mL/min/1.73m2) 01/29/23 08:46 Calcium 9.1 mg/dL (8.5-10.1) 01/29/23 08:46 Albumin 2.8 g/dL (3.4-5.0) L 01/29/23 08:46 Glucose 87 mg/dL (74-106) 01/29/23 08:46 Liver Function Panel: Alanine Aminotransferase (ALT/SGPT) 23 U/L (14-59) 01/29/23 08: 46 Aspartate Amino Transf (AST/SGOT) 19 U/L (15-37) 01/29/23 08:46 Coagulation Panel: No Data to Display Cardiac Panel: No Data to Display Arterial Blood Gas: No Data to Display Venous Blood Gas: No Data to Display Pancreas Panel: No Data to Display Thyroid Panel: No Data to Display Infectious Disease: No Data to Display Blood Cultures: No Data to Display Toxicology Panel: No Data to Display Panel: No Data to Display Imaging and Studies Imaging and Studies Study information below may be from another EMR and interpreted by another provider. Please see original notes in EMR for more complete details. EKG Summary: ATIENT NAME: ALLISON,CATINARAKESH #: [id number] ORDERING PROVIDER: Phong Hinson #: [id number] PRIMARY CARE PROVIDER:GEN LOCAL DATE/TIME OF SERVICE: 06/25/20 1700 : 1985PERFORMING LOCATION: ER APPROVED REPORT Exam: Resting ECG Patient Location: E HR:92 bpm ECG Measurements Heart Rate 92 AXIS MS 145 P 48 QRSd 81 QRS 60 QT 376 T61 QTc 467 Conclusion Sinus rhythm...normal P axis, V-rate 60- 99. No STEMI. I have reviewed and interpreted ECG and agree with software generated interpretation. <Electronically signed by PHONG HINSON DO in [facility]> E-Sign Date: 06/25/20 E-Sign Time: 1830 ADDENDUM APPROVED REPORT Exam: Resting ECG Patient Location: E HR:92 bpm ECG Measurements Heart Rate 92 AXIS MS 145 P 48 QRSd 81 QRS 60 QT 376 T61 QTc 467 Conclusion Sinus rhythm...normal P axis, V-rate 60- 99. No STEMI. I have reviewed and interpreted ECG and agree with software generated interpretation. I have reviewed and I agree with the emergency room physician???s ECG interpretation. Electronically signed by: <Electronically signed by Noah Chavez M.D. in [facility]> 06/28/20 1039 Cosigned by: Anesthesia Assessment and Plan Anesthesia History Personal History: No History of Anesthesia Complications Family History: No Family History of Anesthesia Complications Exercise Tolerance Exercise Tolerance: Metabolic Equivalents>4 Pertinent Negatives Pertinent Negatives: No Symptoms of GERD, No Major Cardiovascular Symptoms or Complaints, No Major Pulmonary Symptoms or Complaints and No History of CVA/TIA Cardiac & Pulmonary Exam Cardiac Exam: Normal S1/S2 Heart Sounds Pulmonary Exam: Clear Bilateral Breath Sounds Implantable Cardiac Device Does patient have a Pacemaker or an ICD?: No Airway Exam Known Difficult Airway: No Mallampati Class: 1 Mouth Opening: Normal (> 3cm) Thyromental Distance: Greater than 3 cm Neck Range of Motion: Full ROM Neck Circumference: Normal Teeth Condition: Normal Dentition ASA Classification ASA Score: ASA 2 Emergency Case?: No NPO Status NPO Status: NPO Clears >2 hours, Solids >8 hours and Full Stomach Status Status: Confirmed Anesthesia Plan Resuscitation Status: Full Code Anesthesia Technique: Epidural Anesthesia Airway Planned: Natural Airway Pain Management: Surgeon and patient request nerve block Monitors Used: Standard Monitors
[2023-01-29] MEDS: FentaNYL/ROPIvacaine 2 mcg/ml and 0.1% 200 ML CADD Cassette EP (22:13)
--- NOTE | 2023-01-29 22:33 | ANES.NEUR_ITS ---
Epidural/Spinal Catheter Date Performed: 01/29/23 Procedure Start: 22:15 Procedure Stop: 22:28 Requesting Provider: Jayde Ceron Procedure Location: Obstetrics Reason Performed: Labor Epidural Standard Monitors Applied: Blood Pressure, SpO2 and See EMR for corresponding vital signs Patient Position: Sitting Sedation Given (Indicate Dose Given): No Sedation given Patient Mental Status: Awake Sterility: Hand Hygiene, Surgical Cap, Surgical Mask, Sterile Gloves, Sterile Drape/Sheet and Chlorhexidine Procedure Location: L2-L3 Interspace Epidural Needle: Tuohy 17 Guage Needle Length: 3.5 Inch Needle Approach: Midline Epidural Procedure: Skin Prepped, Sterile Drape Placed, 1% Lidocaine to skin and subcutaneous tissue with 25G needle, Tuohy Needle placed, ISSAC to Saline Used, Epidural Catheter Placed, Negative Heme and Negative CSF Flow Catheter Placed?: Catheter Placed Test Dose (Indicate Dose Given): 3ml 1.5% Lidocaine with 1:200K Epinephrine Given and Negative Test Dose Loss of Resistance Depth (cm): 7 Catheter depth at skin (cm): 13 Dressing: Sorbaview Dressing Placed, Mastisol Used and Dressing reinforced with Tape Epidural Provider Bolus (Indicate Dose Given): Total bolus dose given in 3-5 ml divided doses and Total Ropivacaine 0.1% with Fentanyl 2mcg/ml Given from pump. (ml) Dose:: 8 ml Additives (Indicate Dose Given ): None Infusion Medication: M edication Infusion Began Medication Infusion: Ropivacaine 0.1% with Fentanyl 2mcg/ml Maintenance Infusion Rate (ml/hour): 10 PCEA Bolus Dose (ml): 5 Post Procedure Pain score (0-10): 0 Block Level: T10 Paresthesia: Left Paresthesia Duration: Transient (on placement of catheter) Ultrasound: Not Used Number of Attempts (See previous attempts in note section): 1 Procedure Tolerated: No Complications and Patient tolerated well Procedure Outcome: Successful Performed By: Noah Mcmillan
[2023-01-30] VITALS (111 sets, daily range): BP systolic 96–150; BP diastolic 52–81; PULSE 62–112; RESP 17–98; TEMP 36.9–37.9; O2SAT 94–99
--- NOTE | 2023-01-30 01:50 | NUR.NOTE ---
Nursing Note: Pt unable to void on bedpan, dense epidural, pt opted for straight cath. 75cc med yellow urine with bladder palpation assisting.
--- NOTE | 2023-01-30 03:05 | W.PM.OBNL1 ---
Date of service: 01/30/23 Time of Service: 03:05 Informed Consent Informed Consent: Risk,Benefits,Alternatives Discussed (admission) Contractions Monitor Mode: External Contraction Frequency(min): 2-3 Contraction Duration(sec): 60 Fetus A Heart Rate Baseline: 130 Presentation: Cephalic Variability: Moderate (6-25 BPM) Categories: Category I Accelerations: Present Decelerations: None Assessment and Plan Assessment and plan (1) Normal labor: Status: Acute Assessment and plan: Continue Pitocin. Add Ancef at 4:30 Anticipate . Objective Abnormal lab results 01/29/23 Range/Units 08:46 Sodium 133 L (136-145) mmol/L Alkaline Phosphatase 141 H (46-116) U/L Albumin 2.8 L (3.4-5.0) g/dL Temp Pulse Resp BP Pulse Ox 98.4 F 76 98 H 122/65 96 01/30/23 01:15 01/30/23 03:03 01/30/23 01:15 01/30/23 03:03 01/30/23 02:08 Laboratory Results WBC 8.86 10^3/uL (4.4-10.8) 01/29/23 08:46 RBC 4.13 10^6/uL (3.93-5.22) 01/29/23 08:46 Hgb 12.5 g/dL (11.2-15.7) 01/29/23 08:46 Hct 37.3 % (36.0-46.0) 01/29/23 08:46 MCV 90 fL (80-95) 01/29/23 08:46 MCH 30.3 pg (27.0-33.0) 01/29/23 08:46 MCHC 33.5 % (32.0-36.0) 01/29/23 08:46 RDW 13.6 % (11.7-14.6) 01/29/23 08:46 Plt Count 194 10^3/uL (130-400) 01/29/23 08:46 MPV 10.8 fL (8.0-11.0) 01/29/23 08:46 Sodium 133 mmol/L (136-145) L 01/29/23 08:46 Potassium 3.9 mmol/L (3.5-5.1) 01/29/23 08:46 Chloride 101 mmol/L (98-107) 01/29/23 08:46 Carbon Dioxide 24.0 mmol/L (21.0-32.0) 01/29/23 08:46 Anion Gap 8.0 mmol/L (3-11) 01/29/23 08:46 BUN 11 mg/dL (7-18) 01/29/23 08:46 Creatinine 0.8 mg/dL (0.55-1.02) 01/29/23 08:46 Est GFR (CKD-EPI 2020) 98.48 (mL/min/1.73m2) 01/29/23 08:46 Glucose 87 mg/dL (74-106) 01/29/23 08:46 Calcium 9.1 mg/dL (8.5-10.1) 01/29/23 08:46 Total Bilirubin 0.3 mg/dL (0.2-1.0) 01/29/23 08:46 AST 19 U/L (15-37) 01/29/23 08:46 ALT 23 U/L (14-59) 01/29/23 08:46 Alkaline Phosphatase 141 U/L (46-116) H 01/29/23 08:46 Total Protein 7.5 g/dL (6.4-8.2) 01/29/23 08:46 Albumin 2.8 g/dL (3.4-5.0) L 01/29/23 08:46 Patient ABO/Rh A Negative 01/29/23 08:46 Antibody Screen POSITIVE 01/29/23 08:46 Antibody Identification Anti-D 01/29/23 08:46 Subjective Interval history since last seen: Patient has epidural. Resting comfortably. Pitocin at 18. Contractions every 2-3 minute, category 1 strip. Will add Ancef for ROM 24 hours at 4:30 AM Anticipate Results Hemoglobin/Hematocrit: Hgb 12.5 g/dL (11.2-15.7) 01/29/23 08:46 Hct 37.3 % (36.0-46.0) 01/29/23 08:46 Abnormal Lab Findings: Abnormal Labs 01/29/23 08:46 Sodium 133 L Alkaline Phosphatase 141 H Albumin 2.8 L
[2023-01-30] MEDS: Lactated Ringers 1,000 ML 125 ML IV ×2 (03:16→11:55)
[2023-01-30] MEDS: ceFAZolin 2,000 MG in Normal Saline 100 ML 200 MG IVPB ×4 (04:34→22:23)
--- NOTE | 2023-01-30 06:50 | NUR.NOTE ---
Nursing Note:Report given to Day shift. Pt resting comfortably on right side. at bedside.
--- NOTE | 2023-01-30 07:09 | W.PM.OBNL1 ---
Date of service: 01/30/23 Time of Service: 07:09 Informed Consent Informed Consent: Risk,Benefits,Alternatives Discussed (admission) Objective Abnormal lab results 01/29/23 Range/Units 08:46 Sodium 133 L (136-145) mmol/L Alkaline Phosphatase 141 H (46-116) U/L Albumin 2.8 L (3.4-5.0) g/dL Temp Pulse Resp BP Pulse Ox 99.8 F H 77 18 111/62 96 01/30/23 06:16 01/30/23 06:32 01/30/23 06:16 01/30/23 06:32 01/30/23 02:08 Laboratory Results WBC 8.86 10^3/uL (4.4-10.8) 01/29/23 08:46 RBC 4.13 10^6/uL (3.93-5.22) 01/29/23 08:46 Hgb 12.5 g/dL (11.2-15.7) 01/29/23 08:46 Hct 37.3 % (36.0-46.0) 01/29/23 08:46 MCV 90 fL (80-95) 01/29/23 08:46 MCH 30.3 pg (27.0-33.0) 01/29/23 08:46 MCHC 33.5 % (32.0-36.0) 01/29/23 08:46 RDW 13.6 % (11.7-14.6) 01/29/23 08:46 Plt Count 194 10^3/uL (130-400) 01/29/23 08:46 MPV 10.8 fL (8.0-11.0) 01/29/23 08:46 Sodium 133 mmol/L (136-145) L 01/29/23 08:46 Potassium 3.9 mmol/L (3.5-5.1) 01/29/23 08:46 Chloride 101 mmol/L (98-107) 01/29/23 08:46 Carbon Dioxide 24.0 mmol/L (21.0-32.0) 01/29/23 08:46 Anion Gap 8.0 mmol/L (3-11) 01/29/23 08:46 BUN 11 mg/dL (7-18) 01/29/23 08:46 Creatinine 0.8 mg/dL (0.55-1.02) 01/29/23 08:46 Est GFR (CKD-EPI 2020) 98.48 (mL/min/1.73m2) 01/29/23 08:46 Glucose 87 mg/dL (74-106) 01/29/23 08:46 Calcium 9.1 mg/dL (8.5-10.1) 01/29/23 08:46 Total Bilirubin 0.3 mg/dL (0.2-1.0) 01/29/23 08:46 AST 19 U/L (15-37) 01/29/23 08:46 ALT 23 U/L (14-59) 01/29/23 08:46 Alkaline Phosphatase 141 U/L (46-116) H 01/29/23 08:46 Total Protein 7.5 g/dL (6.4-8.2) 01/29/23 08:46 Albumin 2.8 g/dL (3.4-5.0) L 01/29/23 08:46 Patient ABO/Rh A Negative 01/29/23 08:46 Antibody Screen POSITIVE 01/29/23 08:46 Antibody Identification Anti-D 01/29/23 08:46 Subjective Interval history since last seen: Patient seen and examined. Comfortable with epidural. No urge to push. Cervix is 9 cm, 0 station. Category 1 tracing. Anticipate vaginal delivery in the near future. Results Hemoglobin/Hematocrit: Hgb 12.5 g/dL (11.2-15.7) 01/29/23 08:46 Hct 37.3 % (36.0-46.0) 01/29/23 08:46 Abnormal Lab Findings: Abnormal Labs 01/29/23 08:46 Sodium 133 L Alkaline Phosphatase 141 H Albumin 2.8 L
[2023-01-30] MEDS: Acetaminophen 325 MG TAB 650 MG PO ×2 (09:46→16:58)
--- NOTE | 2023-01-30 12:03 | W.PM.OBNL1 ---
Date of service: 01/30/23 Time of Service: 12:03 Informed Consent Informed Consent: Risk,Benefits,Alternatives Discussed (admission) Contractions Contraction Frequency(min): 3 Contraction Duration(sec): 50 Intensity: Moderate Fetus A Heart Rate Baseline: 160 Presentation: Cephalic Variability: Moderate (6-25 BPM) Categories: Category I FHR Rhythm: Regular Characteristics: Normal Accelerations: 15 X 15 Decelerations: None Amniotic Membrane Status: Ruptured Assessment and Plan Assessment and plan (1) Normal labor: Status: Acute Assessment and plan: We will continue to assist with patient's maternal expulsive efforts. Plan is to continue current antibiotic regime until delivery and then change her antibiotic dosing. Objective Temp Pulse Resp BP Pulse Ox 99.5 F 64 60 H 118/64 96 01/30/23 11:48 01/30/23 11:34 01/30/23 09:36 01/30/23 11:34 01/30/23 09:36 Laboratory Results WBC 8.86 10^3/uL (4.4-10.8) 01/29/23 08:46 RBC 4.13 10^6/uL (3.93-5.22) 01/29/23 08:46 Hgb 12.5 g/dL (11.2-15.7) 01/29/23 08:46 Hct 37.3 % (36.0-46.0) 01/29/23 08:46 MCV 90 fL (80-95) 01/29/23 08:46 MCH 30.3 pg (27.0-33.0) 01/29/23 08:46 MCHC 33.5 % (32.0-36.0) 01/29/23 08:46 RDW 13.6 % (11.7-14.6) 01/29/23 08:46 Plt Count 194 10^3/uL (130-400) 01/29/23 08:46 MPV 10.8 fL (8.0-11.0) 01/29/23 08:46 Sodium 133 mmol/L (136-145) L 01/29/23 08:46 Potassium 3.9 mmol/L (3.5-5.1) 01/29/23 08:46 Chloride 101 mmol/L (98-107) 01/29/23 08:46 Carbon Dioxide 24.0 mmol/L (21.0-32.0) 01/29/23 08:46 Anion Gap 8.0 mmol/L (3-11) 01/29/23 08:46 BUN 11 mg/dL (7-18) 01/29/23 08:46 Creatinine 0.8 mg/dL (0.55-1.02) 01/29/23 08:46 Est GFR (CKD-EPI 2020) 98.48 (mL/min/1.73m2) 01/29/23 08:46 Glucose 87 mg/dL (74-106) 01/29/23 08:46 Calcium 9.1 mg/dL (8.5-10.1) 01/29/23 08:46 Total Bilirubin 0.3 mg/dL (0.2-1.0) 01/29/23 08:46 AST 19 U/L (15-37) 01/29/23 08:46 ALT 23 U/L (14-59) 01/29/23 08:46 Alkaline Phosphatase 141 U/L (46-116) H 01/29/23 08:46 Total Protein 7.5 g/dL (6.4-8.2) 01/29/23 08:46 Albumin 2.8 g/dL (3.4-5.0) L 01/29/23 08:46 Patient ABO/Rh A Negative 01/29/23 08:46 Antibody Screen POSITIVE 01/29/23 08:46 Antibody Identification Anti-D 01/29/23 08:46 Vital Signs Reviewed: Yes Objective Narrative Objective Narrative: Presents after approximately 24 hours of spontaneous rupture membranes. She Tmax of 100.6 approximately 2 hours ago. She received a dose of acetaminophen and her temperature is currently 99.5. There has been a change in the heart rate baseline to the 150- 160 range. Subjective Patient Reports: No new Complaints Interval history since last seen: Patient has been pushing effectively for approximately with the presenting part 2+ station. Results Hemoglobin/Hematocrit: Hgb 12.5 g/dL (11.2-15.7) 01/29/23 08:46 Hct 37.3 % (36.0-46.0) 01/29/23 08:46 Abnormal Lab Findings: Abnormal Labs 01/29/23 08:46 Sodium 133 L Alkaline Phosphatase 141 H Albumin 2.8 L
[2023-01-30] MEDS: FentaNYL/ROPIvacaine 2 mcg/ml and 0.1% 200 ML CADD Cassette EP (13:32)
--- NOTE | 2023-01-30 15:18 | ANES_ITS ---
Date of service: 01/30/23 Time of Service: 14:22 Anesthesia Note Report Anesthesia Note: Request to evaluate epidural rate for laboring patient. Patient has been pushing for approximately 4 hours. After discussion with patient and nurse, plan is to stop the infusion so patient can gain back some pelvic strength. Will re- evaluate in next one to two hours. Epidural catheter to stay in place.
--- NOTE | 2023-01-30 15:30 | PLAC_PTH ---
PATIENT: Luana Camacho LOC: OBS U#:[id number] AGE/SX: 37/F ROOM: OBS.304 RE01/29/[address]: Sherrill Gardiner : 1985 BED: A DIS: 02/01/2023 SPEC #: [id number] RECD: 01/31/23 12:52 STATUS: SOULauren REQ #: [id number] PETER: 01/30/23 15:[address]: Sherrill Gardiner DEPT: Surgical Specimen RECD BY: Jeanna Child ENTERED: 01/31/23 12:52 SP TYPE: PLAC OTHR DR: Paula Grey Tissues: 1 - PLACENTA (3RD TRIMESTER) Procedures: IMMUNOPEROXIDASE STAIN GROSS AND MICRO LEVEL 5 Comments: [id number]
--- NOTE | 2023-01-30 16:28 | W.OBDELIVERY ---
Date of service: 01/30/23 Time of Service: 16:29 OB Labor/ Delivery Information Baby A Delivery Delivery Method: Assisted (vacuum assist) Presentation: Cephalic Cephalic Position: Vertex Vertex Position: Right Occipital Anterior Cord Description-Baby A: 3 Vessels Amniotic Fluid: Meconium Estimated Blood Loss: 450 Delivery Outcome: Liveborn Infant Complications: none Infant Transferred: Remains with Mother Note: Parents plan to name the Chelsea. Providers Doctor: Sherrill Gardiner [employer]: Allison Joseph Nurse: Jane Huang Nurse: Danna Mendez Labor/Delivery Information Number of Babies in Womb: 1 Steroids Given: None Reason Steroids Not Administered: N/A Group Beta Strep: Negative Antibiotics Administered: Yes Number of Doses of Antibiotics: 2 Rubella Status: Immune Blood Type: A- Varicella Immunity: Immune Maternal Complications: Maternal Fever, Prolonged Labor(>20hrs) and Prolonged Second Stage(>2hrs) Shoulder Dystocia: No Note: Kiwi vacuum was applied with in OA position at 4+ station. Over course of the course of 3 contractions with 3 pulls per contraction the vertex was brought to the position. Midline episiotomy was cut and after maternal expulsive efforts over 3 contractions the Kiwi vaccum was applied for the final time and the head successfully delivered past the introitus. The anterior shoulder delivered at the same time as the L hand of the fetus. With gentle downward traction both were successfully delivered followed by the trunk and extremities. The infant was placed on her mother's chest and the cord clamped after pulsation had stopped. Cord ABGs were collected. Placenta delivered intact with normal configuration and 3 vessel cord. See dictation of 3rd degree lac repair as described below. Stages of Labor Onset of Labor Date: 01/29/23 Onset of Labor Time: 04:00 Complete Dilatation Date: 01/30/23 Complete Dilatation Time: 10:33 Labor - Stage 1 Duration: 30 hours and 33 minutes ROM Baby A: 01/29/23 ROM Baby A: 04:00 ROM Total Time- Baby A: [id number] Infant Delivery Date-Baby A: 01/30/23 Infant Delivery Time-Baby A: 15:30 Labor Stage 2 Duration: 4 hours and 57 minutes Placenta Delivery Date-Baby A: 01/30/23 Placenta Delivery Time-Baby A: 15:37 Labor-Stage 3 Duration: 7 minutes Total Length of Labor-Baby A: 35 hours and 30 minutes Placenta Status: Delivered Baby A Infant Gender: Female Gestational Status: Term (39-41.6 wks) Gestational Age in Weeks/Days: 40 Weeks and 3 Days weight: 8 lb 3 oz Score-1 Minute Interval(Baby A) Heart Rate-1 minute: 100 BPM or Greater Respiratory Effort- 1 minute: Spontaneous/Strong Cry Muscle Tone-1 minute: Active Movement Reflex Response-1 minute: Prompt Response Color-1 minute: Bluish Hands or Feet Total Score-1 minute: 9 Score-5 Minute Interval(Baby A) Heart Rate- 5 minute: 100 BPM or Greater Respiratory Effort-5 minute: Spontaneous/Strong Cry Muscle Tone-5 minute: Active Movement Reflex Response-5 minute: Prompt Response Color-5 minute: Bluish Hands or Feet Total Score- 5 minute: 9 Interventions Pain Management Interventions: Epidural (Epidural infusion was stopped in the last 45min of 2nd stage.) Epidural was stopped to facilitate maternal expulsive efforts. ../ Episiotomy Indication: Assisted Delivery and Other (maternal exhaustion), Episiotomy Description: Midline. Sponge Count Correct: Yes, Sharp Count Correct: Yes. Episiotomy/Repair Note: Midline episiotomy performed with vertex . 3rd degree extension noted. L side of capsule of external sphincter lacerated completely. R side on external sphincter intact. On digital exam rectal was mucosa intact. The torn end of the external sphincter was reapproximated to the contralateral sphincter in a series of interrupted figure of eight sutures of 2-0 Vicryl. 3-0 Vicryl was used to reapproximate the edges of both the bulbospongiosus and transverse perineal muscles. The skin of the perineum was reapproximated with subcuticular closure of 3-0 Vicryl. Vaginal epithelium was intact, no repair required. All repair sites were hemostatic at the completion of the procedure. / Assisted Delivery Baby A , Type of Assisted Delivery: Vacuum (kiwi device) Indication for Vacuum Assisted Delivery: Maternal Exhaustion, Date Applied: 01/30/23, Reduction of Pressure Between Contractions: Yes, Number of Pulls: 3, Number of Pop Offs: 1, Number of Contractions: 3 Total Minutes Vacuum Applied: 4.:
[2023-01-30] MEDS: Dibucaine 1% 28 GM TUBE TP (16:58)
[2023-01-30] MEDS: Ibuprofen 600 MG TAB PO (16:59)
[2023-01-30] MEDS: Hamamelis Leaf/Glycerin 100 EACH BOX PR (16:59)
[2023-01-31 02:00] VITALS: BP 105/68; PULSE 81; RESP 18; TEMP 37.1
[2023-01-31] MEDS: Acetaminophen 325 MG TAB 650 MG PO ×2 (06:54→17:13)
[2023-01-31] MEDS: Ibuprofen 600 MG TAB PO ×2 (06:55→17:12)
[2023-01-31 07:10] VITALS: BP 117/77; PULSE 80; RESP 16; TEMP 36.7; O2SAT 96
[2023-01-31 07:26] LABS: HCT 28.5 % (36.0-46.0); HGB 9.7 g/dL (11.2-15.7); MCH 30.7 pg (27.0-33.0); MCV 90 fL (80-95); MPV 10.5 fL (8.0-11.0); Platelet Count 221 10^3/uL (130-400); RBC 3.16 10^6/uL (3.93-5.22); RDW-SD 45.7 fL; WBC 17.56 10^3/uL (4.4-10.8)
[2023-01-31] MEDS: Docusate Sodium 100 MG CAP PO ×2 (07:28→21:15)
--- NOTE | 2023-01-31 09:05 | W.PM.OBPNV1 ---
Date of service: 01/31/23 Time of Service: 09:06 Assessment and Plan Assessment and plan (1) Status post vacuum-assisted vaginal delivery: Status: Acute Assessment and plan: day #1 status post vacuum-assisted vaginal delivery with midline episiotomy and third-degree extension. Doing well today. Routine postoperative and care. Anticipate discharge home tomorrow. Patient has been ruptured for greater than 24 hours. Received antibiotics. Currently afebrile. (2) Rh negative state in antepartum period: Status: Acute (3) Advanced maternal age, 1st : Status: Acute Exam Physical Exam Vital signs: Temp Pulse Resp BP Pulse Ox 98.1 F 80 16 117/77 96 01/31/23 07:10 01/31/23 07:10 01/31/23 07:10 01/31/23 07:10 01/31/23 07:10 Vital Signs Reviewed: Yes Notable Details: Afebrile Narrative: Afebrile, adequate urine output, stable hemoglobin at 9.7. Constitutional Constitutional: no acute distress HEENT Exam HEENT Exam: Normal Respiratory Exam Respiratory Exam: Normal Cardiovascular Exam Cardiovascular Exam: Normal Abdominal Exam Comments: Soft, nontender Extremities Exam Extremity Exam: Normal and Edema (1+ lower extremity bilateral.); negative Calf Tenderness Neurological Exam Neurological Exam: Normal Psychiatric Exam Psychiatric Exam: Normal Results Hemoglobin/Hematocrit: Hgb 9.7 g/dL (11.2-15.7) L D 01/31/23 06:12 Hct 28.5 % (36.0-46.0) L 01/31/23 06:12 Abnormal Lab Findings: Abnormal Labs 01/29/23 01/31/23 08:46 06:12 WBC 17.56 H RBC 3.16 L Hgb 9.7 L D Hct 28.5 L Sodium 133 L Alkaline Phosphatase 141 H Albumin 2.8 L
--- NOTE | 2023-01-31 10:19 | W.ANESPOSTOP ---
Postoperative Evaluation Date, Time and Location Date Performed: 01/31/23 Time Performed: 10:19 Patient Location: Obstetrics Vital Signs Most Recent Imported Vital Signs: Most Recent Vital Signs Temp Pulse Resp BP Pulse Ox 36.7 C 80 16 117/77 96 01/31/23 07:10 01/31/23 07:10 01/31/23 07:10 01/31/23 07:10 01/31/23 07:10 Pain Score Most Recent Pain Score: Most Recent Pain Score Pain Level [Abdomen] 4 01/31/23 07:10 Pain Level 3 01/31/23 06:55 Assessment Mental Status: Awake (Alert & Oriented to Patient Baseline) Airway and Respiratory Function: Patent airway with normal (patient baseline) respiratory exam Cardiovascular Function: Hemodynamically Stable Hydration Status: Adequately Hydrated Nausea & Vomiting: No Nausea or Vomiting Pain: Pt. Denies Any Pain Peripheral Nerve Block: Other (Epidural appropriately resolved, denied complaint, denied headache, denied backpain. Per RN catheter removed with tip intact.)
[2023-01-31 12:00] VITALS: BP 111/72; PULSE 87; RESP 16; TEMP 37; O2SAT 97
[2023-01-31 15:15] VITALS: BP 109/74; PULSE 95; RESP 16; TEMP 36.7; O2SAT 96
[2023-01-31 20:30] VITALS: BP 112/76; PULSE 102; RESP 18; TEMP 36.6
[2023-02-01] MEDS: Docusate Sodium 100 MG CAP PO (09:26)
[2023-02-01] MEDS: Ibuprofen 600 MG TAB PO (09:27)
[2023-02-01] MEDS: Acetaminophen 325 MG TAB 650 MG PO (09:27)
[2023-02-01 09:37] VITALS: BP 120/73; PULSE 102; RESP 16; TEMP 36.7
--- NOTE | 2023-02-01 10:37 | W.PM.OBPNV1 ---
Date of service: 02/01/23 Time of Service: 10:37 Assessment and Plan Assessment and plan (1) Status post vacuum-assisted vaginal delivery: Status: Acute Assessment and plan: day #2 status post vacuum-assisted vaginal delivery. Doing well. No issues or concerns. Discharge home today. Follow-up in the office in 2 and 6 weeks. All questions were answered. Subjective Subjective Interval history: Patient seen this morning. Overall doing well. She has been afebrile. Pain is well controlled. Bleeding is appropriately. She is working on breast-feeding her . Strong bonding is observed. She is having no emotional concerns. Exam Physical Exam Vital signs: Temp Pulse Resp BP Pulse Ox 98.1 F 102 H 16 120/73 96 02/01/23 09:37 02/01/23 09:37 02/01/23 09:37 02/01/23 09:37 01/31/23 15:15 Vital Signs Reviewed: Yes Constitutional Constitutional: no acute distress HEENT Exam HEENT Exam: Normal Neck Exam Neck Exam: Normal Respiratory Exam Respiratory Exam: Normal Cardiovascular Exam Cardiovascular Exam: Normal Abdominal Exam Comments: Soft nontender per exam by nursing Fundal Exam Fundus: Firm Extremities Exam Extremity Exam: Edema (1+ bilateral); negative Calf Tenderness Neurological Exam Neurological Exam: Normal Psychiatric Exam Psychiatric Exam: Normal Results Hemoglobin/Hematocrit: Hgb 9.7 g/dL (11.2-15.7) L D 01/31/23 06:12 Hct 28.5 % (36.0-46.0) L 01/31/23 06:12 Abnormal Lab Findings: Abnormal Labs 01/29/23 01/31/23 08:46 06:12 WBC 17.56 H RBC 3.16 L Hgb 9.7 L D Hct 28.5 L Sodium 133 L Alkaline Phosphatase 141 H Albumin 2.8 L
--- NOTE | 2023-02-01 10:43 | DSE_ITS ---
Date of service: 02/01/23 Time of Service: 10:43 DS: Diagnosis Discharge Diagnosis (1) Status post vacuum-assisted vaginal delivery: Status: Acute Asessment and Plan: day #2 status post vacuum-assisted vaginal delivery after augmented labor for rupture of membranes greater than 24 hours. Mom and baby are both doing well. Exclusively breast-feeding. Afebrile. Stable vital signs. We w ill follow-up in the office in 2 and 6 weeks. Discharge Plan Disposition Patient Disposition: Home Condition: Good Discharge Details Reason For Visit: [id number] EGA, SROM Group B Strep Neg Admit Date/Time: 01/29/23 06:30 Admit Provider: Sherrill Gardiner Attending Provider: Sherrill Gardiner Primary Care Provider: Paula Grey Hospital Course Hospital Course: Patient was admitted to the center with spontaneous rupture of membranes. She received prophylactic antibiotic therapy at 24 hours rupture of membranes. She had Pitocin augmentation of labor and got to the point that she was completely dilated. She had a vacuum-assisted vaginal delivery of a viable female weighing 8 pounds. She did receive antibiotic therapy during the course of her labor. Her course was on complex. She was discharged home day #2 ambulating, tolerating a regular diet and oral pain medication with stable vital signs. She will be seen back in the office in 2 and 6 weeks. Home Meds and New Rx's Prescriptions: New ibuprofen 800 mg tablet 800 mg PO Q8H PRNQty: 60 1RF No Action aspirin 81 mg tablet,chewable 81 mg PO DAILY Patient Comments: 08/09/22- pt reports taking 81 mg alternating with 162 mg every other day. prenat.vits,jeffery,[id number]-ajzsb Tablet 1 tab PO DAILY Fish Oil 100-160-1,000 mg capsule 1 cap PO 1XD Discharge Instructions Stand Alone Forms: BC Instructions, BC Post Vaginal Deliver Activity:: Pelvic rest x6 weeks Equipment/Supplies:: No Equipment Needed Diet:: As Tolerated Discharge Orders Discharge Orders: Discharge Order (Routine); Ordered 02/01/23 Ordered By: Jayde Ceron OB:DS Summary Summary Vaginal Delivery Method: Assisted (vacuum assist) Episiotomy Description: Midline Laceration Extension: Third Degree Contraception Discussed Contraception Discussed: Yes Contraceptive Plan: Undecided, [place] Gender-Baby A: Female weight: 8 lb 3 oz Status at Discharge Functional status at discharge: independent ambulation Overall status at discharge: patient is progressing back to baseline Mental Status: mental status grossly normal Speech and Movement: speech and movement normal Mood: congruent mood Affect: normal affect Exam Physical Exam Vital signs: Temp Pulse Resp BP Pulse Ox 98.1 F 102 H 16 120/73 96 02/01/23 09:37 02/01/23 09:37 02/01/23 09:37 02/01/23 09:37 01/31/23 15:15 Constitutional Comments: See physical exam from progress note dated 02/01/2023 [facility] All Active Problems (Updated 01/31/23 @ 09:07 by Jayde Ceron DO) Status post vacuum-assisted vaginal delivery (Acute) Normal labor (Acute) Threatened labor at term (Acute) Rh negative state in antepartum period (Acute) Advanced maternal age, 1st (Acute) (Acute) Lipoma of breast (Acute) per referral note left axilla Medical History (Updated 01/31/23 @ 09:07 by Jayde Ceron DO) Anxiety Depression buproprion in the past Surgical History No significant past surgical history Family History (Updated 07/12/22 @ 09:46 by Myriam Kern CNM) Maternal Grandfather Heart disease Paternal Grandfather Cancer Social History Smoking/Tobacco Use Status: Never Smoking risk assessment performed?: Yes Alcohol Intake: current Alcohol Intake frequency: a few times a week Alcohol type: hard liquor Drug use: Occasionally Details: mushrooms, t-14, alcohol, t-3 Current gender identity: female Do you feel safe at home: Yes Do you feel safe in your relationship?: Yes History History 1 Para 0 Hx # Term Pregnancies Multiple births Hx # Pregnancies Ectopic pregnancies AB induced Hx Number of Living Children AB spontaneous DS: Data Vitals/I&O Vitals and I&O: Vital Signs Temperature 98.1 F 02/01/23 09:37 Temperature 97.8 F 01/29/23 06:24 Temperature Source Oral 02/01/23 09:37 Pulse 102 H 02/01/23 09:37 Pulse 74 01/29/23 06:24 Pulse Rhythm Regular 01/31/23 20:30 Respiratory Rate 16 02/01/23 09:37 Respiratory Depth Normal 01/30/23 08:32 Blood Pressure 120/73 02/01/23 09:37 Blood Pressure 133/82 01/29/23 06:24 Blood Pressure Mean 88 02/01/23 09:37 Pulse Oximetry 96 01/31/23 15:15 Oxygen Delivery Method Room Air 01/29/23 06:14 Oxygen Flow Rate 0 01/29/23 06:14 Pain Level 4 02/01/23 09:37 Intake & Output 01/31/23 01/31/23 02/01/23 11:59 23:59 11:59 Intake Total 550 / 550 Output Total 1500 / 1500 Balance -950 / -950 Intake: Oral 550 / 550 Output: Urine 1500 / 1500 Other: Urine Color Pale Data Completed and Pending Labs on day of discharge: Labs from last 24 hours 01/31/23 01/29/23 16:18 08:46 Antibody Identification Anti-D Screen Pending [facility] Unit Number [id number] Unit Expiration Date 10/06/2023 0245 Product Lot # [id number]
[2023-02-01] MEDS: Dibucaine 1% 28 GM TUBE TP (14:37)
[2023-02-01] MEDS: Hamamelis Leaf/Glycerin 100 EACH BOX PR (14:37)
== END 2023-02-01 16:00 | disposition home or self-care (01) | DRG 768 ==
PROVIDERS: Admitting Provider Obstetrics & Gynecology Gynecology; PCP Nurse Practitioner Family; Visit Provider Obstetrics & Gynecology Gynecology
DX: O36.0930 Maternal care for other rhesus isoimmunization, third trimester, not applicable or unspecified (principal); Z37.0 Single live birth; O75.2 Pyrexia during labor, not elsewhere classified; O70.20 Third degree perineal laceration during delivery, unspecified; Z3A.40 40 weeks gestation of pregnancy; O63.1 Prolonged second stage (of labor); O75.81 Maternal exhaustion complicating labor and delivery
CPT/HCPCS: 36415; 80053; 85027; 85461; 86850; 86900; 86901; 90384; 59025; 86870; 86880; 86885; 88307; 88361; J0690; J2790

== ENCOUNTER 2023-02-04 13:37 | Emergency (ER) | payer OTHER, SELFPAY ==
[2023-02-04 13:41] VITALS: BP 151/97; PULSE 88; RESP 18; TEMP 37.1; O2SAT 98
--- NOTE | 2023-02-04 13:45 | RT.EKG_ITS ---
APPROVED REPORT Exam: Resting ECG Reason for Exam: heart palpitations Patient Location: E HR:97 bpm ECG Measurements Heart Rate 97 AXIS IA 152 P 45 QRSd 75 QRS 10 QT 340 T 38 QTc 433 Conclusion Sinus rhythm...normal P axis, V-rate 60- 99 Probable left atrial enlargement...P >50mS, <-0.10mV V1. Sinus. Normal axis. No STEMI. I have reviewed and interpreted ECG and agree with software generated interpretation.
[2023-02-04 13:54] VITALS: RESP 20
[2023-02-04 14:07] LABS: Abs Immature Grans 0.07 10^3/uL (0.0-0.06); Absolute Basophil Count 0.04 10^3/uL (0.0-0.2); Absolute Eosinophil Count 0.12 10^3/uL (0.0-0.7); Absolute Lymphocyte Count 2.49 10^3/uL (1.2-3.4); Absolute Monocyte Count 0.69 10^3/uL (0.1-0.8); Absolute Neutrophil Count 7.51 10^3/uL (1.2-6.7); Basophils % 0.4; Eosinophils % 1.1; HCT 31.2 % (36.0-46.0); HGB 10.5 g/dL (11.2-15.7); Immature Grans % 0.6; Lymphocytes % 22.8; MCH 30.3 pg (27.0-33.0); MCHC 33.7 % (32.0-36.0); MCV 90 fL (80-95); Monocytes % 6.3; Neutrophils % 68.8; Platelet Count 349 10^3/uL (130-400); RBC 3.47 10^6/uL (3.93-5.22); RDW 13.8 % (11.7-14.6); RDW-SD 45.1 fL; WBC 10.92 10^3/uL (4.4-10.8)
[2023-02-04 14:22] LABS: ALT 57 U/L (14-59); AST 34 U/L (15-37); Alkaline Phosphatase 106 U/L (46-116); Anion Gap 10.5 mmol/L (3-11); BUN 13 mg/dL (7-18); Bilirubin, Total 0.3 mg/dL (0.2-1.0); CO2 25.5 mmol/L (21.0-32.0); CREATININE 0.8 mg/dL (0.55-1.02); Calcium 9.5 mg/dL (8.5-10.1); Chloride 103 mmol/L (98-107); Estimated GFR 98.48 (mL/min/1.73m2); Glucose 118 mg/dL (74-106); Magnesium 1.9 mg/dL (1.8-2.4); Potassium 3.8 mmol/L (3.5-5.1); Sodium 139 mmol/L (136-145); Total Protein 7.8 g/dL (6.4-8.2)
[2023-02-04 14:27] LABS: Bilirubin Negative (Negative); Blood Large (Negative); Clarity Sl Cloudy (Clear); Glucose Negative (Negative); Ketones Negative (Negative); Leukocyte Esterase Moderate (Negative); Nitrite Negative (Negative); Specific Gravity 1.015 (1.005-1.025); Urobilinogen 0.2 mg/dL (Up to 0.2); pH 7.5 (5-8)
[2023-02-04 14:31] LABS: TSH 1.55 uIU/mL (0.36-3.74)
[2023-02-04 14:32] LABS: Bacteria Few HPF (Negative); Casts Negative LPF (Negative); Crystals Negative HPF (Negative); Epithelial Cells Many HPF (Negative); Mucus Negative (Negative); RBC 20-50 HPF (0-2)
[2023-02-04 14:33] LABS: C & S Indicated? No/Sq. Contamination
[2023-02-04 14:51] VITALS: BP 124/84; PULSE 90; RESP 16; O2SAT 95
[2023-02-04 15:51] VITALS: BP 123/84; PULSE 85; RESP 16; O2SAT 95
[2023-02-04 15:53] LABS: Bilirubin Negative (Negative); Blood Large (Negative); Clarity Sl Cloudy (Clear); Glucose Negative (Negative); Ketones Negative (Negative); Leukocyte Esterase Small (Negative); Nitrite Negative (Negative); Specific Gravity 1.015 (1.005-1.025); Urobilinogen 0.2 mg/dL (Up to 0.2); pH 7.5 (5-8)
[2023-02-04 15:59] LABS: Bacteria Few HPF (Negative); C & S Indicated? Yes; Casts Negative LPF (Negative); Crystals Negative HPF (Negative); Epithelial Cells Few HPF (Negative); Mucus Negative (Negative); RBC 20-50 HPF (0-2)
--- NOTE | 2023-02-04 18:45 | NUR.NOTE ---
Nursing Note: PT returned SETH Meeks's call. Kole Read reviewed repeat UA. Orders were to hold off treating for a UTI as PT does not currently have any UTI symptoms and wait for the urine culture results. PT was advised to call back in 3 days for those results.
--- NOTE | 2023-02-05 21:14 | ED.GENADUL_ITS ---
Discharge Plan Disposition Patient Disposition: Home Condition: Stable Discharge Details Clinical Impression: Palpitation Primary Care Provider: Paula Grey ED Provider: Jeanna Klein Home Meds and New Rx's Prescriptions: Continued aspirin 81 mg tablet,chewable 81 mg PO DAILY Patient Comments: 08/09/22- pt reports taking 81 mg alternating with 162 mg every other day. prenat.vits,jeffery,wxo-xvrp-hmbot Tablet 1 tab PO DAILY Fish Oil 100-160-1,000 mg capsule 1 cap PO 1XD ibuprofen 800 mg tablet 800 mg PO Q8H PRNQty: 60 1RF Discharge Instructions Instructions: Heart Palpitations (ED) Additional Instructions: Please take care of yourself, try to get some sleep this evening I am ordering an outpatient Holter monitor but all your tests look great today My recommendation is that you follow-up with UTILIZATION COORDINATOR and your primary care physician Will notify you if your repeat microanalysis is within normal limits Referrals: Paula Grey [Primary Care Provider] - Discharge Orders Other Ambulatory Orders: Holter Monitor (Routine) Timeframe: 1 Week Facility: [facility] - Location: Respiratory Therapy Ordered By: Jeanna Klein Discharge Data Discharge Date/Time-TO BE ENTERED AT DEPARTURE: 02/04/23 16:12 Medical Decision Making 37-year-old female presents Labs and exam were performed for further evaluation, anemia resolving with hemoglobin 10.5 and 31.2, increased from prior assessment No clinical evidence of preeclampsia or eclampsia, blood pressure is within normal limits and patient is essentially asymptomatic I did order a Holter monitor for outpatient evaluation, no evidence of sepsis or infection Neurological exam within normal limits We will have patient follow-up with primary care physician and UTILIZATION COORDINATOR at scheduled appointments Return precautions reviewed and patient expressed understanding Thyroid within normal limits. HPI General Date/Time Provider Initiated Documentation: 02/04/23 13:43 . HPI Narrative: This 37-year-old female presents post 5 days. She states she had an uneventful delivery. States she has been breast-feeding. States she has been having racing heart and shaking whenever she tries to lay down. Denies any chest pain or shortness of breath. States she has some blurred vision when the event occurs. Denies any headache or dizziness. Denies any strength or sensation change. Denies any current vision change or symptoms. Related Data Home Medications Medication Instructions Recorded Confirmed omega 4-wdv-dsy-fish oil 100 1 cap PO 1XD 06/21/22 01/30/23 mg-160 mg-1,000 mg capsule (Fish Oil) prenat.vits,jeffery,okq-waqp-rodgq 1 tab PO DAILY 06/21/22 01/30/23 aspirin 81 mg chewable tablet 81 mg PO DAILY 08/09/22 01/30/23 ibuprofen 800 mg tablet 800 mg PO Q8H PRN #60 tabs 02/01/23 Previous Rx's Medication Instructions Recorded ibuprofen 800 mg tablet 800 mg PO Q8H PRN #60 tabs 02/01/23 Allergies Allergy/AdvReac Type Severity Reaction Status Date / Time lamotrigine [From Lamictal] Allergy Intermediate pain in Verified 02/04/23 13:47 neck, feverish aripiprazole [From Abilify] AdvReac Intermediate Started to Verified 02/04/23 13:47 feel weak and off General Stated Complaint: GenMedical SARAH: 3 PFSH All Active Problems (Updated 02/04/23 @ 15:33 by SETH Alamo) Palpitation (Acute) Status post vacuum-assisted vaginal delivery (Acute) Rh negative state in antepartum period (Acute) (Acute) Lipoma of breast (Acute) per referral note left axilla Medical History (Updated 02/04/23 @ 15:33 by SETH [place]amo) Advanced maternal age, 1st Anxiety Depression buproprion in the past Surgical History No significant past surgical history Family History (Updated 07/12/22 @ 09:46 by Myriam Kern CNM) Maternal Grandfather Heart disease Paternal Grandfather Cancer Social History Smoking/Tobacco Use Status: Never Smoking risk assessment performed?: Yes Alcohol Intake: current Alcohol Intake frequency: a few times a week Alcohol type: hard liquor Drug use: Occasionally Substance use type: does not use Details: mushrooms, t-14, alcohol, t-3 Current gender identity: female Do you feel safe at home: Yes Do you feel safe in your relationship?: Yes History History 1 Para 0 Hx # Term Pregnancies Multiple births Hx # Pregnancies Ectopic pregnancies AB induced Hx Number of Living Children AB spontaneous Exam Narrative Exam Narrative: Patient is alert and oriented, in no acute distress, pupils equal round reactive to light and accommodation, lungs clear to auscultation bilaterally, cardiac rate rhythm regular, no abdominal tenderness, no pallor, alert and oriented x4, cranial nerves II through XII intact, strength and sensation intact distally, ambulatory steady gait, no peripheral edema Course Vital Signs Vital signs: Vital Signs Temperature 37.1 C 02/04/23 13:41 Pulse 88 02/04/23 13:41 Respiratory Rate 18 02/04/23 13:41 Blood Pressure 151/97 H 02/04/23 13:41 Pulse Oximetry 98 02/04/23 13:41 Temperature 37.1 C 02/04/23 13:41 Temperature Source Skin 02/04/23 13:41 Pulse 85 02/04/23 15:51 Respiratory Rate 16 02/04/23 15:51 Respiratory Effort Normal, Non-Labored 02/04/23 13:54 Respiratory Depth Normal 02/04/23 13:54 Respiratory Pattern Normal 02/04/23 13:54 Blood Pressure 123/84 02/04/23 15:51 Pulse Oximetry 95 02/04/23 15:51 Oxygen Delivery Method Room Air 02/04/23 15:51 Oxygen Flow Rate 0 02/04/23 15:51 Pain Level 0 02/04/23 13:41 Lab/Test Results Lab/Test Results: 02/04/23 15:43 Urine - Reflex from Ua Urine Culture - Preliminary Gram Positive Beti,Mixed Laboratory Tests Range/Units 02/04/23 02/04/23 02/04/23 11:52 11:52 11:52 WBC (4.4-10.8) 10^3/uL 10.92 H RBC (3.93-5.22) 10^6/uL 3.47 L Hgb (11.2-15.7) g/dL 10.5 L Hct (36.0-46.0) % 31.2 L MCV (80-95) fL 90 MCH (27.0-33.0) pg 30.3 MCHC (32.0-36.0) % 33.7 RDW (11.7-14.6) % 13.8 Plt Count (130-400) 10^3/uL 349 MPV (8.0-11.0) fL 9.0 Immature Gran % 0.6 Neutrophils % 68.8 Lymphocytes % 22.8 Monocytes % 6.3 Eosinophils % 1.1 Basophils % 0.4 Nucleated RBC % (0.0-0.3) % 0.0 Absolute Neutrophils (1.2-6.7) 10^3/uL 7.51 H Absolute Lymphocytes (1.2-3.4) 10^3/uL 2.49 Absolute Monocytes (0.1-0.8) 10^3/uL 0.69 Absolute Eosinophils (0.0-0.7) 10^3/uL 0.12 Absolute Basophils (0.0-0.2) 10^3/uL 0.04 Sodium (136-145) mmol/L 139 Potassium (3.5-5.1) mmol/L 3.8 Chloride (98-107) mmol/L 103 Carbon Dioxide (21.0-32.0) mmol/L 25.5 Anion Gap (3-11) mmol/L 10.5 BUN (7-18) mg/dL 13 Creatinine (0.55-1.02) mg/dL 0.8 Est GFR (CKD-EPI 2020) (mL/min/1.73m2) 98.48 Glucose (74-106) mg/dL 118 H Calcium (8.5-10.1) mg/dL 9.5 Magnesium (1.8-2.4) mg/dL 1.9 Total Bilirubin (0.2-1.0) mg/dL 0.3 AST (15-37) U/L 34 ALT (14-59) U/L 57 Alkaline Phosphatase (46-116) U/L 106 Total Protein (6.4-8.2) g/dL 7.8 Albumin (3.4-5.0) g/dL 3.0 L TSH (0.36-3.74) uIU/mL 1.55 Urine Color (Yellow) Urine Clarity (Clear) Urine pH (5-8) Ur Specific [place] (1.005-1.025) Urine Protein (Negative) mg/dL Urine Ketones (Negative) mg/dL Urine Blood (Negative) Urine Nitrite (Negative) Urine Bilirubin (Negative) Urine Urobilinogen (Up to 0.2) mg/dL Ur Leukocyte Esterase (Negative) Urine RBC (0-2) HPF Urine WBC (0-5) HPF Ur Epithelial Cells (Negative) HPF Urine Crystals (Negative) HPF Urine Bacteria (Negative) HPF Urine Casts (Negative) LPF Urine Mucus (Negative) Urine Other Ur Culture Indicated? Urine Glucose (Negative) mg/dL Range/Units 02/04/23 02/04/23 02/04/23 14:17 15:31 15:43 WBC (4.4-10.8) 10^3/uL RBC (3.93-5.22) 10^6/uL Hgb (11.2-15.7) g/dL Hct (36.0-46.0) % MCV (80-95) fL MCH (27.0-33.0) pg MCHC (32.0-36.0) % RDW (11.7-14.6) % Plt Count (130-400) 10^3/uL MPV (8.0-11.0) fL Immature Gran % Neutrophils % Lymphocytes % Monocytes % Eosinophils % Basophils % Nucleated RBC % (0.0-0.3) % Absolute Neutrophils (1.2-6.7) 10^3/uL Absolute Lymphocytes (1.2-3.4) 10^3/uL Absolute Monocytes (0.1-0.8) 10^3/uL Absolute Eosinophils (0.0-0.7) 10^3/uL Absolute Basophils (0.0-0.2) 10^3/uL Sodium (136-145) mmol/L Potassium (3.5-5.1) mmol/L Chloride (98-107) mmol/L Carbon Dioxide (21.0-32.0) mmol/L Anion Gap (3-11) mmol/L BUN (7-18) mg/dL Creatinine (0.55-1.02) mg/dL Est GFR (CKD-EPI 2020) (mL/min/1.73m2) Glucose (74-106) mg/dL Calcium (8.5-10.1) mg/dL Magnesium (1.8-2.4) mg/dL Total Bilirubin (0.2-1.0) mg/dL AST (15-37) U/L ALT (14-59) U/L Alkaline Phosphatase (46-116) U/L Total Protein (6.4-8.2) g/dL Albumin (3.4-5.0) g/dL TSH (0.36-3.74) uIU/mL Urine Color (Yellow) Yellow Yellow Urine Clarity (Clear) Sl Cloudy Sl Cloudy Urine pH (5-8) 7.5 7.5 Ur Specific [place] (1.005-1.025) 1.015 1.015 Urine Protein (Negative) mg/dL Negative Negative Urine Ketones (Negative) mg/dL Negative Negative Urine Blood (Negative) Large H Large H Urine Nitrite (Negative) Negative Negative Urine Bilirubin (Negative) Negative Negative Urine Urobilinogen (Up to 0.2) mg/dL 0.2 0.2 Ur Leukocyte Esterase (Negative) Moderate H Small H Urine RBC (0-2) HPF 20-50 H Cancelled 20-50 H Urine WBC (0-5) HPF 10-20 H Cancelled 5-10 Ur Epithelial Cells (Negative) HPF Many Cancelled Few Urine Crystals (Negative) HPF Negative Cancelled Negative Urine Bacteria (Negative) HPF Few Cancelled Few Urine Casts (Negative) LPF Negative Cancelled Negative Urine Mucus (Negative) Negative Cancelled Negative Urine Other Cancelled Ur Culture Indicated? No/Sq. Contamination Cancelled Yes Urine Glucose (Negative) mg/dL Negative Negative
== END 2023-02-04 16:12 | disposition home or self-care (01) ==
PROVIDERS: Emergency Provider Physician Assistant; PCP Nurse Practitioner Family
DX: R06.02 Shortness of breath (principal); R00.2 Palpitations; Z86.59 Personal history of other mental and behavioral disorders; G47.00 Insomnia, unspecified
CPT/HCPCS: 36415; 80053; 93005; 99283; 81003; 81015; 83735; 84443; 85025; 87086; 93010

== ENCOUNTER 2023-02-11 12:15 | Outpatient (CLI) | payer OTHER, SELFPAY ==
[2023-02-11 12:56] VITALS: BP 121/77; PULSE 109
[2023-02-11 12:57] VITALS: BP 121/77; PULSE 109; RESP 18; TEMP 37.1
--- NOTE | 2023-02-11 13:41 | LC.LAC2 ---
Date of service: 02/11/23 Time of Service: 13:00 Note Note: Jillian it was great meeting with you, Chelsea and Jimmy. You are doing a wonderful job taking care of Chelsea. Jillian was seen on the Center today as Dr. Ceron had her come in for assessment due to fever and right breast pain. Jillian had taken some tylenol before coming in for her visit today and had a normal temperature 37.1 on arrival. Was able to assess a feeding while here and made adjustment for Chelsea's position to have her turned more towards Jillian with tummy to tummy. Jillian had also noted on the right lateral outside of her breast was a hard spot. With examination, Jillian's nipples are without redness or breakdown. Left beast is soft to palpation. Right breast is soft with a hard nodule on lateral side. If Chelsea is breast feeding from both breast, encouraged Jillian to place Chelsea to the right breast to start feeds. Also encouraged breast massage before and after along with hand expression on right to help make sure breast is being emptied. Visit was consulted with Dr. Ceron who recommends Jillian to check temperature twice a day and to continue with tylenol as needed. Also encouraged breast massage and hand expression. Encouraged Jillian to call tomorrow or the next day if has continued or worsening symptoms. Education Reviewed: Position and Attachment, Hand Expression and Engorgement Subjective Identifiers Parent's Name: Luana Camacho (Sasha) Parent's Date of : 89 Concerns Parental Concerns: Fever, right nipple pain, hard spot on right breast Provider Concerns: Dr. Ceron had patient come to center for evaluation due to fever and right breast pain Indications for Referral Maternal Request: Yes , <37 wks: No Difficulty Establishing Feedings(<8 Feeds/24Hours): No Requires Rousing>50% of Feeds: No Hyperbilirubinemia: No Medical Condition or Anomaly (Sepsis,EBONIE): No Twins+: No Seperation of Mother/Infant: No Difficult Latch,Sore Nipples/Trauma,Nipple Shield(BF): Yes Milk Expression Required (BF): Yes Meets Medical Indication for Supplementation: No Has Referral to Infant Feeding Services Been Made?: No Background Parent Feeding Goals: Jillian states nate Tran is feeding every 2-3 hours during the day, has had a max of 4 hours at night. States Chelsea has gained some weight at the last brazing machine tender visit. Concern today is had Jillian had a max temp of 100.7, before coming in temp was 100.5, took tylenol. At visit temp was 37.1 (98.8) Experience: First Time Support: Supportive and Involved Partner Feeding Preference: Exclusive Current Experience: Established Maternal Risk Factors: Primiparity and Age <20 or >30 years Maternal Hx Medical Hx: Anxiety and depression Delivery Hx Gestational Age Weeks/Days: 40.3 Type of Delivery: Vaginal Infant Gender: Female Gestational Status: Term (39-41.6 wks) Vacuum: Successful Score 1 Minute Heart Rate-1 minute: 100 BPM or Greater Respiratory Effort- 1 minute: Spontaneous/Strong Cry Muscle Tone-1 minute: Active Movement Reflex Response-1 minute: Prompt Response Color-1 minute: Bluish Hands or Feet Total Score-1 minute: 9 Score 5 Minute Heart Rate- 5 minute: 100 BPM or Greater Respiratory Effort-5 minute: Spontaneous/Strong Cry Muscle Tone-5 minute: Active Movement Reflex Response-5 minute: Prompt Response Color-5 minute: Bluish Hands or Feet Total Score- 5 minute: 9 Objective Feeding/Pumping History Optimal Feeding: Frequency 8-12 feeds per day, Duration 10-15 Minutes Sustained Nursing, Swallowing Intermittent or frequent, Rouses Independently for feedings, Longest Interval between feeds is< 4-6 hours and Swallowing Feeding Concerns: Maternal Discomfort Summary Summary: Consistent with Plan of Care, Intake normal for day of Life and Satisfied Milk Expression History Indications: Flat/Inverted Nipples LATCH Score Type Of Nipple: Flat Comfort: Moderate: Pain, Reddened, Blisters, and/or Bruises. (Mom complaint of right nipple soreness and hardness to right lateral side of breast) Hold: No Assist Total: 4 Results Infant Weight/I&O Output,Optimal: Adequate stools for Day of Life Output,Concerns: Inadequate voids for day of life (Unsure of this Dad states 2 large voids a day has not really noticed unless it's a large void, states 8 small to large stools a day) NB Physical Readiness to Feed Flexion/Tone: Normal Skin: Normal Respiratory: Normal Head: Normal Alertness/Interest: Normal Assessment Optimal Readiness to Feed: Adequate Physical Readiness and Age Appropriate Feeding Behavior Oral/Facial Exam Facial status at rest and with movement: Normal Lips - Appearance: Normal Functional Suck Pattern: Transitional: 5-10 sucks/burst Feeding Assessment Feeding Assessment Rousing for Feeds: Rousing for 50% of Feeds Maternal independence: Normal Initiation of feeding/Readiness to feed: Normal Pre-feeding position: Abnormal : Head only turned to mom, not aligned Action taken: Repositioned Response to repositioning: Normal Attachment: Normal Latch: Normal Suck: Normal Jaw excursions: Normal Swallows: Normal Swallow count: Normal Maternal comfort with feeding: Normal and Abnormal Nipple after feed: Normal Satiety: Normal Breast/Nipple Exam Maternal Coping: well-Confident mom balancing infants needs with selfcare Breast Exam Breast Exam: Breast examined w/convenience of feeding Breast: Right Abnormal : Lump/mass Interventions Interventions: Teach prevention and treatment of engorgment, Teach signs/symptoms/management of Mastitis, Breast Massage, Effective Milk Removal Increase Frequency, Start on Affected breast, Massage and Express after feeding and Referral to provider Response: Informed Dr. Ceron of findings from visit, Dr. Ceron recommended Jillian check her temparture twice a day, continue with tylenol as needed. Encouraged Jillian to do breast massage, to express milk on right after feedings to ensure empting breast. If Chelsea feeds on both sides at a feeding to start with right side. Nipple Exam Nipple: Bilateral Nipple Pain Pain: Yes Pain Location: right nipple Nipple Pain 10: 3 Pain Onset/Duration: Patient states pain on right nipple, better after realignment of Chelsea Pain Character: Aching Treatments: Lubricants and Hydrogel pads
[2023-02-11 18:51] VITALS: BP 139/67; PULSE 93
== END 2023-02-11 13:20 ==
LOC: BCD 12:15 → OBS 12:55
PROVIDERS: PCP Nurse Practitioner Family; Visit Provider Obstetrics & Gynecology
CPT/HCPCS: 99211

== ENCOUNTER 2023-03-15 16:55 | Outpatient (REF) | payer OTHER, SELFPAY ==
--- NOTE | 2023-03-15 14:55 | SKI_PTH ---
PATIENT: Luana Camacho LOC: [facility]#:[id number] AGE/SX: 37/F ROOM: RE03/15/[address]: Paula Grey : 1985 BED: DIS: 03/15/2023 SPEC #: [id number] RECD: 03/16/23 11:20 STATUS: RACIEL DELEON #: [id number] PETER: 03/15/23 14:[address]: Paula Grey DEPT: Surgical Specimen RECD BY: Jeanna Child Tissues: 1 - SKIN BIOPSY(SHAVE/PUNCH) Procedures: SKIN LEVEL 4 Comments: [id number]
== END 2023-03-15 16:56 | disposition home or self-care (01) ==
LOC: NCHCN 16:55
PROVIDERS: PCP Nurse Practitioner Family; Visit Provider Nurse Practitioner Family
DX: L82.1 Other seborrheic keratosis (principal)
CPT/HCPCS: 88305

== ENCOUNTER 2023-03-16 15:00 | Outpatient (REF) | payer OTHER, SELFPAY ==
[2023-03-16 19:22] LABS: C Diff PCR Negative (Negative)
== END 2023-03-16 15:01 | disposition home or self-care (01) ==
LOC: NCHCN 15:00
PROVIDERS: PCP Nurse Practitioner Family; Visit Provider Nurse Practitioner Family
DX: R19.7 Diarrhea, unspecified (principal)
CPT/HCPCS: 87493; 87505

== ENCOUNTER 2023-03-21 14:03 | Outpatient (REF) | payer OTHER, SELFPAY ==
[2023-03-23 23:07] LABS: Campylobacter PCR Negative (Negative); Salmonella PCR Negative (Negative); Shiga Toxin PCR Negative (Negative); Shigella/Enteroinvasive Ecoli Negative (Negative)
== END 2023-03-21 14:04 | disposition home or self-care (01) ==
LOC: NCHCN 14:03
PROVIDERS: PCP Nurse Practitioner Family; Visit Provider Nurse Practitioner Family
DX: R19.7 Diarrhea, unspecified (principal)
CPT/HCPCS: 87505

== ENCOUNTER 2024-09-05 16:50 | Outpatient (REF) | payer OTHER, SELFPAY ==
[2024-09-05 22:13] LABS: HGB 13.3 g/dL (11.2-15.7); MCH 30.1 pg (27.0-33.0); MCHC 32.4 % (32.0-36.0); MCV 93 fL (80-95); MPV 10.2 fL (8.0-11.0); Platelet Count 289 10^3/uL (130-400); RBC 4.42 10^6/uL (3.93-5.22); RDW 12.3 % (11.7-14.6); RDW-SD 42.1 fL
[2024-09-05 22:25] LABS: ALT 22 U/L (14-59); AST 21 U/L (15-37); Albumin 4.2 g/dL (3.4-5.0); Alkaline Phosphatase 45 U/L (46-116); Anion Gap 8.1 mmol/L (3-11); BUN 18 mg/dL (7-18); Bilirubin, Total 0.45 mg/dL (0.2-1.0); CO2 27.9 mmol/L (21.0-32.0); CREATININE 0.9 mg/dL (0.55-1.02); Calcium 9.3 mg/dL (8.5-10.1); Calculated LDL 155 mg/dL (<100); Chloride 106 mmol/L (98-107); Cholesterol 245 mg/dL (<200); Estimated GFR 84.97 (mL/min/1.73m2); Glucose 96 mg/dL (74-106); HDL Cholesterol 59 mg/dL (40-60); Potassium 5.3 mmol/L (3.5-5.1); Sodium 142 mmol/L (136-145); Total Protein 7.8 g/dL (6.4-8.2); Triglyceride 159 mg/dL (<150)
== END 2024-09-05 16:51 | disposition home or self-care (01) ==
LOC: NCHCN 16:50
PROVIDERS: PCP Nurse Practitioner Family; Visit Provider Nurse Practitioner Family
DX: Z00.00 Encounter for general adult medical examination without abnormal findings (principal)
CPT/HCPCS: 80053; 80061; 85027

== ENCOUNTER 2024-12-22 03:26 | Outpatient (CLI) | payer OTHER, SELFPAY ==
[2024-12-22 11:52] LABS: Panorama Kit Sent via Fed Ex
[2024-12-22 11:53] LABS: Abs Immature Grans 0.03 10^3/uL (0.0-0.06); Absolute Basophil Count 0.02 10^3/uL (0.0-0.2); Absolute Eosinophil Count 0.04 10^3/uL (0.0-0.7); Absolute Lymphocyte Count 2.01 10^3/uL (1.2-3.4); Absolute Monocyte Count 0.51 10^3/uL (0.1-0.8); Absolute Neutrophil Count 6.36 10^3/uL (1.2-6.7); Basophils % 0.2 %; Eosinophils % 0.4 %; HCT 39.3 % (36.0-46.0); HGB 13.1 g/dL (11.2-15.7); Immature Grans % 0.3 %; Lymphocytes % 22.4 %; MCH 30.2 pg (27.0-33.0); MCHC 33.3 % (32.0-36.0); MCV 91 fL (80-95); MPV 9.2 fL (8.0-11.0); Monocytes % 5.7 %; Platelet Count 252 10^3/uL (130-400); RBC 4.34 10^6/uL (3.93-5.22); RDW 13.5 % (11.7-14.6); WBC 8.97 10^3/uL (4.4-10.8)
[2024-12-22 12:40] LABS: TSH (W/Ref FT4) 1.46 uIU/mL (0.36-3.74)
[2024-12-23 09:57] LABS: Hepatitis B Surface Ag Negative (Negative)
[2024-12-23 10:38] LABS: Rubella IgG Ab (UVM) Positive (See Note); Varicella IgG Antibody Positive (See Note)
[2024-12-23 10:44] LABS: Hepatitis C Ab w Rflx HCV PCR Negative (Negative)
[2024-12-23 11:01] LABS: HIV-1/2 Ag & Ab Screen Negative (Negative)
[2024-12-25 14:26] LABS: Syphilis IgG w/Reflex Nonreactive (Nonreactive)
== END 2024-12-22 03:27 | disposition home or self-care (01) ==
LOC: LBO 03:26
PROVIDERS: PCP Nurse Practitioner Family; Visit Provider Advanced Practice Midwife
DX: Z34.91 Encounter for supervision of normal pregnancy, unspecified, first trimester (principal); F41.9 Anxiety disorder, unspecified
CPT/HCPCS: 36415; 86787; 86803; 86850; 86900; 86901; 87340; 87389; 84443; 85025; 86762; 86780

== ENCOUNTER 2024-12-22 11:31 | Outpatient (REF) | payer OTHER, SELFPAY | END 2024-12-22 11:32 | disposition home or self-care (01) | LOC: LBN 11:31 | PROVIDERS: PCP Nurse Practitioner Family; Visit Provider Advanced Practice Midwife | DX: Z34.91 Encounter for supervision of normal pregnancy, unspecified, first trimester (principal) | CPT/HCPCS: 87086 ==

== ENCOUNTER 2025-01-19 11:35 | Outpatient (REF) | payer OTHER, SELFPAY ==
[2025-01-20 12:30] LABS: Chlamydia Result Negative (Negative); GC Result Negative (Negative)
[2025-01-21 15:27] LABS: AFP 37.8 ng/mL; Cigarette smoking status non-Smoker; GA used in risk estimate Scan estimate; IVF Pregnancy No; Initial or repeat testing Initial testing; Insulin dependent diabetes No; Maternal Weight 129 lbs; Number of Fetuses 1; Prev Pregnancy w/NTD No; RECOMMENDED FOLLOW UP None.; Results Summary Normal risk
== END 2025-01-19 11:36 | disposition home or self-care (01) ==
LOC: LBN 11:35
PROVIDERS: Advanced Practice Midwife; PCP Nurse Practitioner Family; Visit Provider Obstetrics & Gynecology
DX: Z34.92 Encounter for supervision of normal pregnancy, unspecified, second trimester; Z3A.16 16 weeks gestation of pregnancy
CPT/HCPCS: 36415; 87491; 87591; 82105

== ENCOUNTER 2025-04-13 03:55 | Outpatient (CLI) | payer OTHER, SELFPAY ==
[2025-04-13 10:34] LABS: HCT 35.5 % (36.0-46.0); HGB 11.9 g/dL (11.2-15.7); MCH 30.1 pg (27.0-33.0); MCHC 33.5 % (32.0-36.0); MCV 90 fL (80-95); MPV 10.0 fL (8.0-11.0); Platelet Count 200 10^3/uL (130-400); RBC 3.95 10^6/uL (3.93-5.22); RDW 12.7 % (11.7-14.6); RDW-SD 41.5 fL; WBC 7.73 10^3/uL (4.4-10.8)
[2025-04-13 11:19] LABS: Glucose,1 Hr (Glucola) 128 mg/dL (80-140)
== END 2025-04-13 03:56 | disposition home or self-care (01) ==
LOC: LBO 03:55
PROVIDERS: PCP Nurse Practitioner Family; Visit Provider Obstetrics & Gynecology
DX: Z34.93 Encounter for supervision of normal pregnancy, unspecified, third trimester (principal); Z3A.28 28 weeks gestation of pregnancy; O26.893 Other specified pregnancy related conditions, third trimester; Z67.91 Unspecified blood type, Rh negative
CPT/HCPCS: 36415; 82950; 85027; 86850; 90384

== ENCOUNTER 2025-06-05 15:15 | Outpatient (REF) | payer OTHER, SELFPAY | END 2025-06-05 15:16 | disposition home or self-care (01) | LOC: LBN 15:15 | PROVIDERS: PCP Nurse Practitioner Family; Visit Provider Advanced Practice Midwife | DX: Z34.93 Encounter for supervision of normal pregnancy, unspecified, third trimester (principal) | CPT/HCPCS: 87081 ==

== ENCOUNTER 2025-07-05 02:44 | Inpatient (IN) | payer OTHER, SELFPAY ==
[2025-07-05] VITALS (27 sets, daily range): BP systolic 89–129; BP diastolic 53–85; PULSE 67–116; RESP 16–18; TEMP 36.4–38.7; O2SAT 94–100
--- NOTE | 2025-07-05 02:57 | W.PM.OBHPL1 ---
Date of service: 07/05/25 Time of Service: 02:57 Assessment and Plan Assessment and plan (1) Spontaneous onset of labor: Status: Acute Assessment and plan: Admit to Center and routine admission labs. Comfort measures. Confirmed vertex presentation by US. Dr. Ceron was notified of admission per her requests due to history of third degree laceration with first . Exam deferred per patient request. Will plan to perform cervical exam with evidence of progress in labor. Anticipate . OB-HPI Labor/Delivery History of Present Illness Reason for Visit: Labor Chief Complaint: Uterine Contractions; Suspected Rupture of Membranes , Associated Signs and Symptoms of Suspected ROM: clear fluid. KENYA Calculator Estimated Delivery Date Method Current WG Current Estimate 07/05/25 LMP (Certain) 40w 0d Other Estimates 07/08/25 Ultrasound #1 39w 4d Comments: Jillian called and reported spontaneous ROM at 0045. She was leaking small amount of clear fluid on admission. ROM plus is positive. History of Present Expected Delivery Route/Plan - CNM FOB - Jimmy Santacruz (2nd child together) BB no circ- [place] Wants to try water therapy, possibly waterbirth but open to epidural if needed GBS negative Specific Issues/Plan 1. 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 1a. Still an issue (pain w/BM 1-2x/wk, rare bleeding), had surgical consult, using fiber/hydration for now. 2. Anxiety / Depression: no meds currently and doing well. Post depression, Sees a therapist 3. Advanced maternal age:cfDNA low risk, Level 2 [place] [facility] [place] initial hgbA1C not drawn 4. Rh neg: rhogam 28 weeks: given 04/13/25 5. cfDNA Low-Risk/Male, SMA and CF previously neg, AFP=nml risk for NTD 6. H/O complex delivery (VAVD to 8lbs 4oz baby w/episiotomy and 3rd degree extension) - Notes dictate indication of vaccuum as maternal exhaustion - Long Term sequelea include anal fissure - Discussed vs labor trial; decision pending MFM referral, OK for vaginal delivery or C/S per MFM Assessment: History Reviewed & Current PFSH All Active Problems (Updated 07/05/25 @ 03:06 by Myriam Kern CNM) Spontaneous onset of labor (Acute) Advanced maternal age (AMA) in (Acute) (Acute) Status post vacuum-assisted vaginal delivery (Acute) Rh negative state in antepartum period (Acute) Medical History (Updated 07/05/25 @ 03:06 by Myriam Kern CNM) 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 Depression buproprion in the past Anxiety Surgical History No significant past surgical history Family History (Updated 07/12/22 @ 09:46 by Myriam Kern CNM) Maternal Grandfather Heart disease Paternal Grandfather Cancer Social History (Updated 02/16/23 @ 17:28 by Sherrill Gardiner MD) Smoking/Tobacco Use Status: Never Smoking risk assessment performed?: Yes Alcohol Intake: current Alcohol Intake frequency: a few times a week Alcohol type: hard liquor Drug use: Occasionally Substance use type: does not use Details: mushrooms, t-14, alcohol, t-3 Household members: spouse, children and other Details: Etienne Ozuna Number of Children: 1 Current gender identity: female Do you feel safe at home: Yes Do you feel safe in your relationship?: Yes History History 2 Para 1 Hx # Term Pregnancies 1 Multiple births 0 Hx # Pregnancies 0 Ectopic pregnancies 0 AB induced 0 Hx Number of Living Children 1 AB spontaneous 0 Past Pregnancies Del. Date GA/Weeks # Preg Succ Route Wgt Sex Labor Lgth Anesthesia Location Prov Complic 01/30/23 39 No Yes vaginal 8 lb [address] Gardiner third degree laceration Delivery Date: 01/30/23 Last Updated by: Myriam Kern CNM PROM, IOL, midline episiotomy, vacuum assist for maternal exhaustion. Chelsea Meds Allergies and Home Medications Allergies Allergy/AdvReac Type Severity Reaction Status Date / Time lamotrigine (From Lamictal) Allergy Intermediate pain in Verified 07/02/25 11:31 neck, feverish aripiprazole (From Abilify) AdvReac Intermediate Started to Verified 07/02/25 11:31 feel weak and off Home Medications ?Medication ?Instructions ?Recorded ?Confirmed ?Type omega 1-zeh-wpt-fish oil 100 1 cap PO 1XD 06/21/22 07/02/25 History mg-160 mg-1,000 mg capsule (Fish Oil) prenat.vits,jeffery,ocd-fktd-ruhpr 1 tab PO DAILY 06/21/22 07/02/25 History aspirin 81 mg tablet 81 mg PO DAILY 04/03/25 07/02/25 History Exam Physical Exam Vital signs: Pulse BP 70 120/72 07/05/25 02:03 07/05/25 02:03 Vital Signs Reviewed: Yes Narrative: Jillian reports that contractions have become stronger Constitutional Constitutional: no acute distress Detailed Labor and Delivery Exam [place] Score: Cervical Points Exam 0 1 2 3 Dilation Closed 1-2cm 3-4 cm 5-6cm Effacement 0-30% 40-50% 60-70% 80% Consistency Firm Medium Soft Station -3 -2 -1,0 +1,+2 Position Posterior Mid Anterior Amniotic Membrane Status: Ruptured Rupture Method: Spontaneous Amniotic Fluid: Clear Pooling: Negative ROM Plus: Positive Monitor Mode: External Contraction Frequency(min): every 4-8 Contraction Duration(sec): 60 Contraction Intensity: Mild/Moderate Fetus A Heart Rate Baseline: 135 Monitor Accelerations: 15 X 15 Monitor Decelerations: None Variability: Moderate (6-25 BPM) Presentation: Cephalic Categories: Category I Est. Weight: 8 lb Date of Membrane Rupture: 07/05/25 Time of Membrane Rupture: 00:45 HEENT Exam HEENT Exam: Normal Respiratory Exam Respiratory Exam: Normal Cardiovascular Exam Cardiovascular Exam: Normal Abdominal Exam Abdominal Exam: Normal Exam Exam: Normal Extremities Exam Extremities Exam: Normal Skin Exam Skin Exam: Normal Psychiatric Exam Psychiatric Exam: Normal Risk Assessment Risk for Shoulder Dystocia Historical/Initial OB: NEGATIVE FOR: Pelvic Abnormality, Pre- BMI>30, Previous Shoulder Dystocia or Previous Macrosomia 36 Weeks: NEGATIVE FOR: Current Gestational DM, EFW>4500gms or Maternal Weight Gain>40lbs 40 Weeks: NEGATIVE FOR: EFW> 4500 gms, Maternal Weight Gain >40lb or Post Dates Risk for Pre-Eclampsia Yes, if one or more: NEGATIVE FOR: Hx Pre-E/Gest HTN, Chronic HTN, Multiple Gestation, Pre-gestational DM, Renal Disease, Systemic Lupus or APA Syndrome Yes, if 2 or more: POSITIVE FOR: Age>= 35 yrs; NEGATIVE FOR: Nulliparity, >10yr btwn pregnancies, BMI>30, ethinicty, Mother/Sister w/ Pre-E or Previous IUGR Risk for Post- Hemorrhage Initial: NEGATIVE FOR: Multiple Gestation, Previous PPH, Known Clotting Deficiency, Grand Multiparity or Anticoagulation 36 Weeks: NEGATIVE FOR: Anemia, hgb<10, Low platelets(thrombocytopenia), Gestational HTN or Pre-E, Polyhydraminios or EFW>4500gms 40 Weeks: NEGATIVE FOR: Anemia, hgb<10, Low platelets (thrombocytopenia), Gestation HTN or Pre-E, Polyhydraminios or EFW>4500gms At Risk?: No Risks Reviewed Risks Reviewed Upon Admission: Yes WW Pocus Exam Exam testing Date/Time of Exam: Date of exam: 07/05/2025 Time of exam: 3:07 am KENYA Calculator Estimated Delivery Date Method Current WG Current Estimate 07/05/25 LMP (Certain) 40w 0d Other Estimates 07/08/25 Ultrasound #1 39w 4d position Gestational age (weeks): 40 Presentation: Vertex Coding for Transabdominal exam: Complete exam
[2025-07-05 03:21] LABS: Abs Immature Grans 0.01 10^3/uL (0.0-0.06); HCT 34.4 % (36.0-46.0); HGB 11.2 g/dL (11.2-15.7); Immature Grans % 0.1 %; MCH 28.5 pg (27.0-33.0); MCHC 32.6 % (32.0-36.0); MCV 88 fL (80-95); MPV 11.5 fL (8.0-11.0); Platelet Count 198 10^3/uL (130-400); RBC 3.93 10^6/uL (3.93-5.22); RDW 13.6 % (11.7-14.6); RDW-SD 43.3 fL; WBC 7.68 10^3/uL (4.4-10.8)
--- NOTE | 2025-07-05 04:05 | W.OBNST ---
Date of service: 07/05/25 Time of Service: 04:05 NST Evaluation Reason for NST Reasons for Nonstress Test: OTHER, SEE COMMENT Reason for NST Other: ROL/ rule out SROM Gestational Age Gestational Age in Weeks and Days: 40 Weeks and 0Days Test and Monitor Explained Test/Monitor Explained: Test Explained, Monitor Explained and Patient Verbalized Understanding Vital Signs Blood Pressure: 120/72 Pulse: 70 Temperature: 97.6 F Weight: 147 lb Urine Results Urine Protein: Negative Urine Ketones: Negative Urine Glucose: Negative Urine Blood: Negative NST Information Date on Monitor: 07/05/25 Time on Monitor: 01:52 Date off Monitor: 07/05/25 Time off Monitor: 02:31 Total Time on Monitor: 39 NST Interventions: PO Hydration Contraction Frequency: 3-8 min NST Evaluation Patient States Movement: Present FHR Baseline: 125 Variability: Moderate 6-25 bpm Accelerations: 15x15 Decelerations: Variable NST Results: Reactive Note Ultrasound Done: N/A. NST Note Note: Spontaneous rupture of membranes at home. Reactive NST. Admitted in early labor. NST Reviewed and Verified by: Myriam Kern
--- NOTE | 2025-07-05 08:17 | W.PM.OBNL1 ---
Date of service: 07/05/25 Time of Service: 08:17 Pelvic Exam Dilation: 6 Effacement (%): 100 station: -1 Position: KENDALL Cervix Position: mid Consistency: soft Vaginal Exam Presentation: Cephalic Contractions Monitor Mode: External Contraction Frequency(min): every 3-4 minutes Contraction Duration(sec): 60 Intensity: Moderate/Strong Fetus A Monitor: Doppler Heart Rate Baseline: 135 Categories: Category I FHR Rhythm: Regular Accelerations: 15 X 15 Decelerations: None Amniotic Membrane Status: Ruptured Rupture Method: Spontaneous Amniotic Fluid: Clear Assessment and Plan Assessment and plan (1) Spontaneous onset of labor: Status: Acute Assessment and plan: AROM offered and declined. Will continue to assess labor progress. Comfort measures. Anticipate . Objective Abnormal lab results 07/05/25 Range/Units 03:08 Hct 34.4 L (36.0-46.0) % MPV 11.5 H (8.0-11.0) fL Temp Pulse Resp BP 98.6 F 70 18 120/72 07/05/25 06:13 07/05/25 03:01 07/05/25 06:13 07/05/25 03:01 Laboratory Results WBC 7.68 10^3/uL (4.4-10.8) 07/05/25 03:08 RBC 3.93 10^6/uL (3.93-5.22) 07/05/25 03:08 Hgb 11.2 g/dL (11.2-15.7) 07/05/25 03:08 Hct 34.4 % (36.0-46.0) L 07/05/25 03:08 MCV 88 fL (80-95) 07/05/25 03:08 MCH 28.5 pg (27.0-33.0) 07/05/25 03:08 MCHC 32.6 % (32.0-36.0) 07/05/25 03:08 RDW 13.6 % (11.7-14.6) 07/05/25 03:08 Plt Count 198 10^3/uL (130-400) 07/05/25 03:08 MPV 11.5 fL (8.0-11.0) H 07/05/25 03:08 Immature Gran % 0.1 % 07/05/25 03:08 Neutrophils % 61.6 % 07/05/25 03:08 Lymphocytes % 29.4 % 07/05/25 03:08 Monocytes % 8.3 % 07/05/25 03:08 Eosinophils % 0.3 % 07/05/25 03:08 Basophils % 0.3 % 07/05/25 03:08 Nucleated RBC % 0.0 % (0.0-0.3) 07/05/25 03:08 Absolute Neutrophils 4.73 10^3/uL (1.2-6.7) 07/05/25 03:08 Absolute Lymphocytes 2.26 10^3/uL (1.2-3.4) 07/05/25 03:08 Absolute Monocytes 0.64 10^3/uL (0.1-0.8) 07/05/25 03:08 Absolute Eosinophils 0.02 10^3/uL (0.0-0.7) 07/05/25 03:08 Absolute Basophils 0.02 10^3/uL (0.0-0.2) 07/05/25 03:08 Membranes Rupture Positive 07/05/25 02:00 ABO/Rh A Negative 07/05/25 03:08 Antibody Screen POSITIVE 07/05/25 03:08 Antibody Identification Anti-D 07/05/25 03:08 Vital Signs Reviewed: Yes Subjective Patient Reports: No new Complaints Interval history since last seen: Jillian is coping well with contractions. She is using position changes and the tub for comfort. Results Hemoglobin/Hematocrit: Hgb 11.2 g/dL (11.2-15.7) 07/05/25 03:08 Hct 34.4 % (36.0-46.0) L 07/05/25 03:08 Abnormal Lab Findings: Abnormal Labs 07/05/25 03:08 Hct 34.4 L MPV 11.5 H
--- NOTE | 2025-07-05 13:17 | W.PM.OBNL1 ---
Date of service: 07/05/25 Time of Service: 13:17 Pelvic Exam Dilation: 7 Effacement (%): 100 Cervix Position: mid Consistency: soft Comments: Contractions Monitor Mode: External Contraction Frequency(min): every 3 min Contraction Duration(sec): 60 Intensity: Moderate/Strong Fetus A Monitor: External (US) Heart Rate Baseline: 130 Variability: Moderate (6-25 BPM) Categories: Category I FHR Rhythm: Regular Accelerations: 15 X 15 Decelerations: None Amniotic Membrane Status: Ruptured Rupture Method: Artifical Amniotic Fluid: Clear Date of Membrane Rupture: 07/05/25 Time of Membrane Rupture: 01:20 Assessment Note: AROM of large bag of water. large amount of clear fluid. Assessment and Plan Assessment and plan (1) Spontaneous onset of labor: Status: Acute Assessment and plan: Anticipate . Position changes for comfort. Dr. Ceron updated on patient's progress. Anticipate . Objective Abnormal lab results 07/05/25 Range/Units 03:08 Hct 34.4 L (36.0-46.0) % MPV 11.5 H (8.0-11.0) fL Temp Pulse Resp BP 98.1 F 75 16 104/65 07/05/25 11:12 07/05/25 11:12 07/05/25 11:12 07/05/25 11:12 Laboratory Results WBC 7.68 10^3/uL (4.4-10.8) 07/05/25 03:08 RBC 3.93 10^6/uL (3.93-5.22) 07/05/25 03:08 Hgb 11.2 g/dL (11.2-15.7) 07/05/25 03:08 Hct 34.4 % (36.0-46.0) L 07/05/25 03:08 MCV 88 fL (80-95) 07/05/25 03:08 MCH 28.5 pg (27.0-33.0) 07/05/25 03:08 MCHC 32.6 % (32.0-36.0) 07/05/25 03:08 RDW 13.6 % (11.7-14.6) 07/05/25 03:08 Plt Count 198 10^3/uL (130-400) 07/05/25 03:08 MPV 11.5 fL (8.0-11.0) H 07/05/25 03:08 Immature Gran % 0.1 % 07/05/25 03:08 Neutrophils % 61.6 % 07/05/25 03:08 Lymphocytes % 29.4 % 07/05/25 03:08 Monocytes % 8.3 % 07/05/25 03:08 Eosinophils % 0.3 % 07/05/25 03:08 Basophils % 0.3 % 07/05/25 03:08 Nucleated RBC % 0.0 % (0.0-0.3) 07/05/25 03:08 Absolute Neutrophils 4.73 10^3/uL (1.2-6.7) 07/05/25 03:08 Absolute Lymphocytes 2.26 10^3/uL (1.2-3.4) 07/05/25 03:08 Absolute Monocytes 0.64 10^3/uL (0.1-0.8) 07/05/25 03:08 Absolute Eosinophils 0.02 10^3/uL (0.0-0.7) 07/05/25 03:08 Absolute Basophils 0.02 10^3/uL (0.0-0.2) 07/05/25 03:08 Membranes Rupture Positive 07/05/25 02:00 ABO/Rh A Negative 07/05/25 03:08 Antibody Screen POSITIVE 07/05/25 03:08 Antibody Identification Anti-D 07/05/25 03:08 Vital Signs Reviewed: Yes Subjective Patient Reports: New Complaints Interval history since last seen: Contractions are stronger after AROM. Jillian is using the shower for comfort with good effect. Notrous oxide provied in room but declined at this time. . Results Hemoglobin/Hematocrit: Hgb 11.2 g/dL (11.2-15.7) 07/05/25 03:08 Hct 34.4 % (36.0-46.0) L 07/05/25 03:08 Abnormal Lab Findings: Abnormal Labs 07/05/25 03:08 Hct 34.4 L MPV 11.5 H
[2025-07-05] MEDS: Oxytocin 10 UNITS/ML VIAL IM (14:20)
[2025-07-05] MEDS: miSOPROStol 200 MCG TAB 400 MCG SL (14:33)
[2025-07-05] MEDS: Oxytocin/Normal Saline 30 UNIT/500 ML BAG 95 UNITS IV (15:40)
[2025-07-05] MEDS: Lactated Ringers 1,000 ML 125 ML IV (15:40)
[2025-07-05] MEDS: TRANEXAMIC ACID/SOD. CHL. 1,000 MG/100 ML BAG 600 MG IVPB (16:08)
--- NOTE | 2025-07-05 16:34 | OBVDS_ITS ---
Date of service: 07/05/25 Time of Service: 16:34 OB Labor/ Delivery Information Baby A Delivery Delivery Method: Spontaneaous Presentation: Cephalic Vertex Position: Left Occipital Anterior Cord Description-Baby A: 3 Vessels Amniotic Fluid: Clear Quantitative Blood Loss: 400 initially (see post hemorrhage form) Delivery Outcome: Liveborn Transferred: Remains with Mother Note: Jillian progressed to full dilation in the tub squatting and on hands and knees. She had an urge to bear down and was moved to the bed and began pushing on her hands and knees. FHTs 120-130 during first stage of labor. FHTs 110-118 in second stage. Second stage huddle was done. Spontaneous delivery of male delivered in KENDALL position. The shoulders delivered with maternal pushing effort and gentle upward traction in the hands and knees position. There was a hand presenting with the face. Baby was passed through Jillian's legs and placed in her arms and dried and stimulated. Spontaneous cry. Cord was clamped and cut by Jimmy, the baby's father. The placenta delivered spontaneously and appears to by intact with a three vessel cord. Pitocin 10 units was administered immediately after delivery of the placenta. The uterus was firm with massage. The perineum was inspected and a first degree perineal laceration was repaired (see repair note). During repair, there was a trickle of bright red blood and misoprostol 400 mcg SL was administered . QBL was initially 400 cc and at 30 minutes post , she passed 300 cc of clots. She was shaking a lot and an accurate BP was difficult to obtain but BP was WNL with manual BP taken by nursing roller shop supervisor with pulse 100-103. Temp at 1525 was 100.2 and 100.4 at 1612. An IV was started by the nursing roller shop supervisor and pitocin was started with a bolus. The uterus was massaged by RN and clots were expressed. A gale catheter was placed and I performed manual extraction of clots. QBL was an additional 500 cc with clots expressed. The fundus was firm and down 2-3 Fb below umbilicus after extraction of clots and vital signs remain WNL with pulse 89-95. Dr. Ceron was notified of Jillian's status and she recommended misoprostol 600 mg Q 6 hours and continued close observation. Will continue to monitor temp and consider antibiotics if greater than 100.5. The baby did breastfeed well. After delivery, Mother and baby and father of the baby were stable and bonding well in the delivery room. Jillian's 2 1/2 year old daughter Chelsea and Jillian's father were also present for delivery. They baby's name is Massimo. Providers Nurse Tube Bender Hand: Myriam Kern Electric Utility Lineworker: Rajesh Rubi Nurse: Monica Waldron RN Nurse: Vishnu Salgado Labor/Delivery Information Number of Babies in Womb: 1 Steroids Given: None Reason Steroids Not Administered: N/A Group Beta Strep: Negative Antibiotics Administered: No Rubella Status: Immune Blood Type: A- Varicella Immunity: Immune Medication in Delivery: 10 IM oxytocin Maternal Complications: None Shoulder Dystocia: No Stages of Labor Onset of Labor Date: 07/05/25 Onset of Labor Time: 00:00 Complete Dilatation Date: 07/05/25 Complete Dilatation Time: 14:00 Labor - Stage 1 Duration: 14 hours and 0 minutes ROM Baby A: 07/05/25 ROM Baby A: 12:00 ROM Total Time- Baby A: [id number] Delivery Date-Baby A: 07/05/25 Infant Delivery Time-Baby A: 14:15 Labor Stage 2 Duration: 15 minutes Placenta Delivery Date-Baby A: 07/05/25 Placenta Delivery Time-Baby A: 14:20 Labor-Stage 3 Duration: 5 minutes Total Length of Labor-Baby A: 14 hours and 15 minutes Placenta Cultured: No Placenta Status: Delivered Baby A Gender: Male Gestational Status: Term (39-41.6 wks) Gestational Age in Weeks/Days: 40 Weeks and 0 Days Length-Baby A: 19.5 in Score-1 Minute Interval(Baby A) Heart Rate-1 minute: 100 BPM or Greater Respiratory Effort- 1 minute: Spontaneous/Strong Cry Muscle Tone-1 minute: Active Movement Reflex Response-1 minute: Prompt Response Color-1 minute: Bluish Hands or Feet Total Score-1 minute: 9 Score-5 Minute Interval(Baby A) Heart Rate- 5 minute: 100 BPM or Greater Respiratory Effort-5 minute: Spontaneous/Strong Cry Muscle Tone-5 minute: Active Movement Reflex Response-5 minute: Prompt Response Color-5 minute: Orting/No Cyanosis Total Score- 5 minute: 10 Interventions Repair of Laceration Type: Perineal, Laceration Extension: First Degree. Sponge Count Correct: No Sponges Placed in Vagina, Sharp Count Correct: Yes. Laceration Repair Note: Scar tissue noted from previous delivery at introitus. perineal laceration repaired with 3-0 vicryl rapide under local anesthetic which [facility] tolerated well. 0.5 cm vaginal cyst on right removed and re-approximated with 1 figure of 8 3-0 viryl rapide suture. Hemorrrhage Note Hemorrhage Recognized Date Hemorrhage Recognized: 07/05/25 Time Hemorrhage Recognized: 14: Call for Help Date: 07/05/25 Time: 14:15 (2nd RN and provider already in room) 2nd RN in Room Date: 07/05/25 Time: 14:15 (present for delivery) 2nd RN: Vishnu Salgado Provider in Room Date: 07/05/25 Time: 14:15 (present for delivery) Provider: Myriam Kern Bimanual Uterine Compression Date: 07/05/25 Time: 14:21 RN Electrical Sign Wirer Helper Notified Date: 07/05/25 Time: 15:15 RN Electrical Sign Wirer Helper on Floor Date: 07/05/25 Time: 15:20 Electrical Sign Wirer Helper: Angélica Florez QBL Scale in Room Date: 07/05/25 Time: 15:20 OB Emergency Cart at Bedside Date: 07/05/25 Time: 15:20 IV Site Right Antecubital: Date: 07/05/25 Time: 15:30 IV Catheter Gauge: 20 Gale Catheter Urinary Catheter Date of Insertion: 07/05/25 Time of insertion: 16:00 Inserted by: Myriam Negro CNM Medication Administration 1st Administration: Medication: Oxytocin 10 U IM Administration Date: 07/05/25 Administration Time: 14:21 2nd Administration: Medication: Misoprostol 600 mcg SL (400 mcg SL) Administration Date: 07/05/25 Administration Time: 14:30 3rd Administration: Medication: Oxytocin 30U/500 ml IV Medication Other/Dose/Route: LR bolus 500 cc then 125 cc/hr Administration Date: 07/05/25 Administration Time: 15:40 4th Administration: Medication: TXA 1 gm IV Administration Date: 07/05/25 Administration Time: 16:00 Second Provider in Room Date: 07/05/25 Time: 16:00 (called by telephone at 1600) Provider: Jayde Ceron Total Blood Loss for PPH Event Quantitative Blood Loss: 1,165 (includes 400 cc blood loss immediately after ) Labs Drawn Labs Drawn: No
[2025-07-05] MEDS: Lidocaine 1% Multi-Dose 20 ML VIAL IJ (17:04)
[2025-07-05 17:46] LABS: HCT 27.3 % (36.0-46.0); HGB 9.4 g/dL (11.2-15.7); MCH 28.9 pg (27.0-33.0); MCHC 34.4 % (32.0-36.0); MCV 84 fL (80-95); MPV 11.1 fL (8.0-11.0); Platelet Count 158 10^3/uL (130-400); RBC 3.25 10^6/uL (3.93-5.22); RDW 13.3 % (11.7-14.6); RDW-SD 40.5 fL; WBC 14.78 10^3/uL (4.4-10.8)
--- NOTE | 2025-07-05 17:50 | W.PM.OBPNV1 ---
Date of service: 07/05/25 Time of Service: 17:51 Assessment and Plan Assessment and plan (1) Term of male : Status: Acute Assessment and plan: Joe's status discussed with Dr. Ceron including fever and she recommends antibiotic therapy with ampicillin, gentamycin and clindamycin IV. Stat lactate and cbc with diff ordered. She was called with lab values including CBC and H and H and lactate and will come in to evaluate Jillian (2) Chorioamnionitis: Status: Acute Assessment and plan: Discussed fever and possibility of chorioamnionitis. Jillian denies flulike symptoms, URI symptoms or headache. She reports that she believes she may have been leaking fluid since yesterday morning. We discussed infection risk due to prolonged rupture of membranes. Dr. thacker notified of prolonged ROM. Subjective Subjective Interval history: Luana is resting with gale catheter in place. Patient comments: No complaints Patient's Mood: good. baby status: Doing well [place] feeding status: Exclusively breast feeding Narrative: Pitocin is infusing. fever 101.7. PO. Exam Physical Exam Vital signs: Temp Pulse Resp BP Pulse Ox 101.7 F H 110 H 18 124/70 94 07/05/25 17:29 07/05/25 17:29 07/05/25 17:29 07/05/25 17:29 07/05/25 17:29 Vital Signs Reviewed: Yes Constitutional Constitutional: no acute distress HEENT Exam HEENT Exam: Normal Respiratory Exam Respiratory Exam: Normal Cardiovascular Exam Cardiovascular Exam: Normal Fundal Exam Fundus: Below Umbilicus and Firm Extremities Exam Extremity Exam: Normal Skin Exam Skin Exam: Normal Psychiatric Exam Psychiatric Exam: Normal Results Hemoglobin/Hematocrit: Hgb 9.4 g/dL (11.2-15.7) L 07/05/25 17:35 Hct 27.3 % (36.0-46.0) L 07/05/25 17:35 Abnormal Lab Findings: Abnormal Labs 07/05/25 07/05/25 03:08 17:35 WBC 14.78 H RBC 3.25 L Hgb 9.4 L Hct 34.4 L 27.3 L MPV 11.5 H 11.1 H Hemorrrhage Note Hemorrhage Recognized Date Hemorrhage Recognized: 07/05/25 Time Hemorrhage Recognized: 14:25 Call for Help Date: 07/05/25 Time: 14:15 (2nd RN and provider already in room) 2nd RN in Room Date: 07/05/25 Time: 14:15 (present for delivery) 2nd RN: Vishnu Salgado Provider in Room Date: 07/05/25 Time: 14:15 (present for delivery) Provider: Myriam Kern Bimanual Uterine Compression Date: 07/05/25 Time: 14:21 RN Director Community Center Notified Date: 07/05/25 Time: 15:15 RN Director Community Center on Floor Date: 07/05/25 Time: 15:20 Director Community Center: Angélica Florez QBL Scale in Room Date: 07/05/25 Time: 15:20 OB Emergency Cart at Bedside Date: 07/05/25 Time: 15:20 Gale Catheter Urinary Catheter Date of Insertion: 07/05/25 Time of insertion: 16:00 Inserted by: Myriam Negro CNM Second Provider in Room Date: 07/05/25 Time: 16:00 (called by telephone at 1600) Provider: Jayde Ceron Total Blood Loss for PPH Event Quantitative Blood Loss: 1,165 (includes 400 cc blood loss immediately after ) Labs Drawn Labs Drawn: No
[2025-07-05] MEDS: Acetaminophen 325 MG TAB 650 MG PO ×2 (18:03→22:03)
[2025-07-05] MEDS: Hamamelis Leaf/Glycerin 100 EACH BOX PR (18:04)
[2025-07-05] MEDS: Dibucaine 1% 28 GM TUBE TP (18:04)
[2025-07-05 18:18] LABS: Abs Immature Grans 0.04 10^3/uL (0.0-0.06); Immature Grans % 0.3 %
[2025-07-05] MEDS: AMPICILLIN SODIUM 2 GM in Normal Saline 100 ML IVPB (18:18)
--- NOTE | 2025-07-05 19:29 | OBCE_ITS ---
Date of service: 07/05/25 Time of Service: 19:29 Assessment and Plan Assessment and plan (1) fever: Status: Acute Assessment and plan: Patient developed a fever with a temperature of 100.2. She has a working diagnosis of chorioamnionitis. Initial report of rupture of membranes was approximately 12 hours from delivery, however on further interrogation she reports leaking fluid at least 1 day prior. This does seem more congruent with the course of her labor, delivery, and course with hemorrhage of 1200 cc qualitative blood loss. She will be placed empirically on triple antibiotic therapy with ampicillin, gentamicin, clindamycin. She will have careful monitoring of vital signs and accurate I's and O's. Her initial lactate is normal. Her CBC shows a white count that is elevated at 14 with a left shift. She will do repeat CBC in the morning, or sooner as warranted. She will continue her IV antibiotics until afebrile for 24 hours. At that point, more than likely she will be discharged without oral antibiotics depending on clinical presentation. (2) Chorioamnionitis: Status: Acute (3) Normal spontaneous vaginal delivery: Status: Acute (4) hemorrhage: Status: Acute Assessment and plan: Patient had qualitative blood loss of 1200 cc which was mostly resultant from uterine atony. It correlates with a clinical picture of chorioamnionitis. She has had misoprostol, TXA, Pitocin, uterine massage and evacuation manually for uterine tonicity. She remains stable at this point. She does understand, that if she has another episode of bleeding, surgical intervention with exam under anesthesia and uterine curettage may be warranted. Outside Collector reports placenta appeared intact at the time of delivery. Suspicion for retained products is low. Careful monitoring of ongoing bleeding. We did discuss the fact that she may warrant transfusion, if she has a further episode of bleeding, or if her hemoglobin stabilizes lower and she is symptomatic. History of Present Illness History of Present Illness Chief Complaint: fever, hemorrhage Narrative: Kindly asked to see in consultation this 39-year-old now G2, P2 who is day 0 status post vaginal . [facility]. Her previous and delivery was complicated by a vacuum-assisted vaginal delivery with elevation in temperature and need for antibiotics, and a 3rd degree laceration, [place] tear. She is of advanced maternal age. She had declined labor induction at 39 weeks. She presented after spontaneous rupture of membranes. Initially she reported spontaneous rupture of membranes at midnight, the day of admission. She had a slow but steady labor progress. During her labor, she did use hydrotherapy, and position change. Ultimately, she progressed to the point that she was completely dilated and with good maternal effort, after rupture of her forebag, she had a vaginal delivery of a viable male infant weighing 8 pounds 15 ounces with Apgars 9 and 10. She did have a slightly delayed hemorrhage with a total qualitative blood loss of 1200 cc. I was notified of her increase in bleeding. She received IV Pitocin, misoprostol, TXA, IV fluids, Flores catheter, and manual expression of the uterus for clots per Myriam Olivia CNM. Shortly after the delivery she had a slight elevation in temperature, and then developed a fever of 101.2. In light of this, laboratory studies were drawn including a CBC and lactate, and IV antibiotics were started empirically. Triple therapy, ampicillin, gentamicin, clindamycin. She also received Tylenol. Her temperature diminished to 100.2 with persistent tachycardia. CBC shows a hemoglobin of 9.4 and her lactate is normal at 1.3. CBC does show elevation in white blood cell count at 14.7 with a left shift and absolute neutrophilia of 12.8. Consults Consult date: 07/05/25 Requesting physician: Myriam Kern Review of Systems Narrative: Patient reports feeling fatigued, with some chills, though otherwise appropriate for Constitutional Constitutional: Reports as per HPI Eyes Eyes: Reports system reviewed and no additional complaints, except as documented Cardiovascular Cardiovascular: Reports system reviewed and no additional complaints, except as documented Respiratory Respiratory: Reports as per HPI, Denies chest congestion and Denies cough Genitourinary Genitourinary: Reports as per HPI Integumentary/Breasts Skin/Breast: Reports system reviewed and no additional complaints, except as documented Psychiatric Psychiatric: Reports system reviewed and no additional complaints, except as documented 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 [place] Housing: house Number of Children: 1 Current gender identity: female Do you feel safe at home: Yes Do you feel safe in your relationship?: Yes History History 2 2 Para 1 Hx # Term Pregnancies 1 Multiple births 0 Hx # Pregnancies 0 Ectopic pregnancies 0 AB induced 0 Hx Number of Living Children 1 AB spontaneous 0 Past Pregnancies Del. Date GA/Weeks # Preg Succ Route Wgt Sex Labor Lgth [facility] No Yes vaginal 8 lb 4 oz Female regional Adam Gardiner third degree laceration Delivery Date: 01/30/23 Last Updated by: Myriam Kern CNM PROM, IOL, midline episiotomy, vacuum assist for maternal exhaustion. [place] Exam Narrative Exam Narrative: Patient is seen and examined this evening. She appears fatigued but not in acute distress. She is slightly pallorous. Const General: cooperative, comfortable and no acute distress Nutritional Appearance: average body habitus Orientation: alert, awake and oriented x3 HENMT Head: normal to inspection Eyes General: appearance normal, both eyes and all related structures Neck Neck: normal visual inspection and supple Resp Effort & Inspection: normal respiratory effort, no audible wheezes and no cough Cardio Rate: tachycardic Rhythm: regular rhythm Skin General skin exam: no rashes or lesions noted and pallor Results Last Vital Signs Temp 100.2 F H 07/05/25 18:46 Pulse 110 H 07/05/25 17:29 Resp 16 07/05/25 18:30 BP 117/74 07/05/25 18:30 Pulse Ox 95 07/05/25 18:30 Labs 07/05/25 17:35 Labs: Laboratory Results - last 24 hr 07/05/25 07/05/25 07/05/25 02:00 03:08 17:35 WBC 7.68 14.78 H RBC 3.93 3.25 L Hgb 11.2 9.4 L Hct 34.4 L 27.3 L MCV 88 84 D MCH 28.5 28.9 MCHC 32.6 34.4 RDW 13.6 13.3 Plt Count 198 158 MPV 11.5 H 11.1 H Immature Gran % 0.1 0.3 Neutrophils % 61.6 86.9 Band Neutrophils % Lymphocytes % 29.4 7.1 Atypical Lymphs % Monocytes % 8.3 5.6 Eosinophils % 0.3 0.0 Basophils % 0.3 0.1 Metamyelocytes % Myelocytes % Promyelocytes % Other Cells % Nucleated RBC % 0.0 Absolute Neutrophils 4.73 12.80 H Absolute Lymphocytes 2.26 1.05 L Absolute Monocytes 0.64 0.82 H Absolute Eosinophils 0.02 0.00 Absolute Basophils 0.02 0.02 RBC Morphology Polychromasia Hypochromasia Poikilocytosis Basophilic Stippling Anisocytosis Microcytosis Macrocytosis Spherocytes Tear Drop Cells Ovalocytes Stomatocytes [place] Bodies [place] Cells/Echinocytes Acanthocytes (Sp[place]) Schistocytes VBG Lactate 1.3 Membranes Rupture Positive Add-On Test Request ABO/Rh A Negative Antibody Screen POSITIVE Antibody Identification Anti-D 07/05/25 07/05/25 18:03 Unknown WBC Cancelled RBC Cancelled Hgb Cancelled Hct Cancelled MCV Cancelled MCH Cancelled MCHC Cancelled RDW Cancelled Plt Count Cancelled MPV Cancelled Immature Gran % Cancelled Neutrophils % Cancelled Band Neutrophils % Cancelled Lymphocytes % Cancelled Atypical Lymphs % Cancelled Monocytes % Cancelled Eosinophils % Cancelled Basophils % Cancelled Metamyelocytes % Cancelled Myelocytes % Cancelled Promyelocytes % Cancelled Other Cells % Cancelled Nucleated RBC % Cancelled Absolute Neutrophils Cancelled Absolute Lymphocytes Cancelled Absolute Monocytes Cancelled Absolute Eosinophils Cancelled Absolute Basophils Cancelled RBC Morphology Cancelled Polychromasia Cancelled Hypochromasia Cancelled Poikilocytosis Cancelled Basophilic Stippling Cancelled Anisocytosis Cancelled Microcytosis Cancelled Macrocytosis Cancelled Spherocytes Cancelled Tear Drop Cells Cancelled Ovalocytes Cancelled Stomatocytes Cancelled [place] Bodies Cancelled [place] Cells/Echinocytes Cancelled Acanthocytes (Spur) Cancelled Schistocytes Cancelled VBG Lactate Membranes Rupture Add-On Test Request TNP ABO/Rh Antibody Screen Antibody Identification
[2025-07-05] MEDS: CLINDAMYCIN 900 MG/50 ML BAG 50 MG IVPB (19:33)
[2025-07-05] MEDS: Ibuprofen 600 MG TAB PO (20:50)
[2025-07-06] VITALS (7 sets, daily range): BP systolic 99–105; BP diastolic 54–69; PULSE 70–92; RESP 14–18; TEMP 36.7–37.4; O2SAT 96–97
[2025-07-06] MEDS: Acetaminophen 325 MG TAB 650 MG PO ×2 (02:02→06:05)
[2025-07-06] MEDS: CLINDAMYCIN 900 MG/50 ML BAG 50 MG IVPB ×3 (03:35→19:07)
[2025-07-06] MEDS: AMPICILLIN SODIUM 2 GM in Normal Saline 100 ML IVPB ×4 (06:06→20:22)
[2025-07-06 06:27] LABS: Abs Immature Grans 0.02 10^3/uL (0.0-0.06); HCT 30.7 % (36.0-46.0); HGB 10.3 g/dL (11.2-15.7); Immature Grans % 0.2 %; MCH 29.4 pg (27.0-33.0); MCHC 33.6 % (32.0-36.0); MCV 88 fL (80-95); MPV 10.8 fL (8.0-11.0); Platelet Count 184 10^3/uL (130-400); RBC 3.50 10^6/uL (3.93-5.22); RDW 13.8 % (11.7-14.6); RDW-SD 43.6 fL; WBC 8.36 10^3/uL (4.4-10.8)
--- NOTE | 2025-07-06 07:54 | W.PM.OBPNV1 ---
Date of service: 07/06/25 Time of Service: 07:54 Assessment and Plan Assessment and plan (1) Normal spontaneous vaginal delivery: Status: Acute Assessment and plan: day #1 status post vaginal . She had a first-degree laceration. (2) Chorioamnionitis: Status: Acute Assessment and plan: Patient developed chorioamnionitis, most probably due to prolonged rupture. She is currently on triple antibiotic therapy which includes ampicillin, gentamicin, and clindamycin. She had a Tmax of 100.8 at 2023. She will remain on her IV antibiotics until afebrile x 24 hours. This was discussed with the patient and her today. CBC this morning is appropriate. Hemoglobin is stable. White count has improved as has her left shift. (3) hemorrhage: Status: Acute Assessment and plan: Bleeding remained stable. Hemoglobin this morning 10.3. Overall doing well. Will continue to carefully monitor. Subjective Subjective Interval history: Patient seen and examined this morning. Reports feeling better. Flores catheter is out. She is voiding well. She has been ambulatory. No further significant episode of bleeding. Exam Physical Exam Vital signs: Temp Pulse Resp BP Pulse Ox 98.7 F 77 16 101/54 L 96 07/06/25 06:08 07/06/25 06:08 07/06/25 06:08 07/06/25 06:08 07/06/25 06:08 Vital Signs Reviewed: Yes Notable Details: Tmax 100.8 at 2023 Constitutional Constitutional: no acute distress HEENT Exam HEENT Exam: Normal Neck Exam Neck Exam: Normal Respiratory Exam Respiratory Exam: Normal Cardiovascular Exam Cardiovascular Exam: Normal Fundal Exam Fundus: Below Umbilicus and Firm Results Hemoglobin/Hematocrit: Hgb 10.3 g/dL (11.2-15.7) L 07/06/25 06:17 Hct 30.7 % (36.0-46.0) L 07/06/25 06:17 Abnormal Lab Findings: Abnormal Labs 07/05/25 07/05/25 07/06/25 03:08 17:35 06:17 WBC 14.78 H RBC 3.25 L 3.50 L Hgb 9.4 L 10.3 L Hct 34.4 L 27.3 L 30.7 L MPV 11.5 H 11.1 H Absolute Neutrophils 12.80 H Absolute Lymphocytes 1.05 L Absolute Monocytes 0.82 H Hemorrrhage Note Hemorrhage Recognized Date Hemorrhage Recognized: 07/05/25 Time Hemorrhage Recognized: 14:25 Call for Help Date: 07/05/25 Time: 14:15 (2nd RN and provider already in room) 2nd RN in Room Date: 07/05/25 Time: 14:15 (present for delivery) 2nd RN: Vishnu Salgado Provider in Room Date: 07/05/25 Time: 14:15 (present for delivery) Provider: Myriam Kern Bimanual Uterine Compression Date: 07/05/25 Time: 14:21 RN Crime Prevention Police Officer Notified Date: 07/05/25 Time: 15:15 RN Crime Prevention Police Officer on Floor Date: 07/05/25 Time: 15:20 Crime Prevention Police Officer: Angélica Florez QBL Scale in Room Date: 07/05/25 Time: 15:20 OB Emergency Cart at Bedside Date: 07/05/25 Time: 15:20 Flores Catheter Urinary Catheter Date of Insertion: 07/05/25 Time of insertion: 16:00 Inserted by: Myriam Negro CNM Second Provider in Room Date: 07/05/25 Time: 16:00 (called by telephone at 1600) Provider: Jayde Ceron Total Blood Loss for PPH Event Quantitative Blood Loss: 1,165 (includes 400 cc blood loss immediately after ) Labs Drawn Labs Drawn: No
[2025-07-06] MEDS: Ibuprofen 600 MG TAB PO (09:48)
[2025-07-06] MEDS: Docusate Sodium 100 MG CAP PO (09:49)
[2025-07-06] MEDS: Lactated Ringers 1,000 ML 125 ML IV (11:29)
[2025-07-07] VITALS (9 sets, daily range): BP systolic 98–135; BP diastolic 62–82; PULSE 62–110; RESP 16–18; TEMP 36.6–37.3; O2SAT 97–100
[2025-07-07] MEDS: Acetaminophen 325 MG TAB 650 MG PO (01:38)
[2025-07-07] MEDS: AMPICILLIN SODIUM 2 GM in Normal Saline 100 ML IVPB ×2 (01:39→07:55)
[2025-07-07 02:04] LABS: HCT 27.6 % (36.0-46.0); HGB 9.3 g/dL (11.2-15.7); MCH 29.1 pg (27.0-33.0); MCHC 33.7 % (32.0-36.0); MCV 86 fL (80-95); MPV 10.2 fL (8.0-11.0); Platelet Count 194 10^3/uL (130-400); RBC 3.20 10^6/uL (3.93-5.22); RDW 14.2 % (11.7-14.6); RDW-SD 43.2 fL; WBC 9.19 10^3/uL (4.4-10.8)
--- NOTE | 2025-07-07 02:18 | W.PM.OBPNV1 ---
Date of service: 07/07/25 Time of Service: 02:18 Assessment and Plan Assessment and plan (1) Normal spontaneous vaginal delivery: Status: Acute Assessment and plan: Post day 2 (2) hemorrhage: Status: Acute Assessment and plan: Bleeding stable, physiologic, HGB stable at 9.3 (3) Chorioamnionitis: Status: Acute Assessment and plan: Tmax 99 currently. On day #2 triple antibiotiac theray, second dose gentamycin given, also day #2 ampicillin, clindamycin. Shaking associated with increase in temp most likely. No signs of pre-eclampsia. Monitor closely Subjective Subjective Interval history: Called to see patient. Awoke from nap feeling poorly Intitial VS with modest elevation in BP. No cephalic, no visual changes, no nausea or vomiting. No recent medication administration. Patient comments: Other (as above) [place] baby status: Doing well and Nursing well Exam Physical Exam Vital signs: Temp Pulse Resp BP Pulse Ox 99.0 F 110 H 16 130/80 97 07/07/25 02:06 07/07/25 01:22 07/07/25 01:22 07/07/25 02:06 07/07/25 01:22 Notable Details: Mild elevation in temperature and BP, not severe range Constitutional Constitutional: mild distress (shaking) and cooperative HEENT Exam HEENT Exam: Normal Neck Exam Neck Exam: Normal Respiratory Exam Respiratory Exam: Normal Cardiovascular Exam Cardiovascular Exam: Normal Abdominal Exam Comments: Soft, non-tender Fundal Exam Fundus: Below Umbilicus and Firm Extremities Exam Extremity Exam: Normal and Edema (1+ B/L); negative Calf Tenderness Skin Exam Skin Exam: Normal Detailed Neurological Exam Neurological: Present alert, oriented X3, CN II-XII intact, moving all extremities, vision grossly intact, hearing grossly intact and normal speech; Absent motor deficit or normal reflexes (brisk while tremorous. 3/4 when not shaking) Psychiatric Exam Psychiatric Exam: Normal Results Hemoglobin/Hematocrit: Hgb 9.3 g/dL (11.2-15.7) L 07/07/25 01:55 Hct 27.6 % (36.0-46.0) L 07/07/25 01:55 Abnormal Lab Findings: Abnormal Labs 07/05/25 07/05/25 07/06/25 03:08 17:35 06:17 WBC 14.78 H RBC 3.25 L 3.50 L Hgb 9.4 L 10.3 L Hct 34.4 L 27.3 L 30.7 L MPV 11.5 H 11.1 H Absolute Neutrophils 12.80 H Absolute Lymphocytes 1.05 L Absolute Monocytes 0.82 H 07/07/25 01:55 WBC RBC 3.20 L Hgb 9.3 L Hct 27.6 L MPV Absolute Neutrophils Absolute Lymphocytes Absolute Monocytes Hemorrrhage Note Hemorrhage Recognized Date Hemorrhage Recognized: 07/05/25 Time Hemorrhage Recognized: 14:25 Call for Help Date: 07/05/25 Time: 14:15 (2nd RN and provider already in room) 2nd RN in Room Date: 07/05/25 Time: 14:15 (present for delivery) 2nd RN: Vishnu Salgado Provider in Room Date: 07/05/25 Time: 14:15 (present for delivery) Provider: Myriam Kern Bimanual Uterine Compression Date: 07/05/25 Time: 14:21 RN Labor Relations Manager Notified Date: 07/05/25 Time: 15:15 RN Labor Relations Manager on Floor Date: 07/05/25 Time: 15:20 Labor Relations Manager: Angélica Florez QBL Scale in Room Date: 07/05/25 Time: 15:20 OB Emergency Cart at Bedside Date: 07/05/25 Time: 15:20 Flores Catheter Urinary Catheter Date of Insertion: 07/05/25 Time of insertion: 16:00 Inserted by: Myriam Negro CNM Second Provider in Room Date: 07/05/25 Time: 16:00 (called by telephone at 1600) Provider: Jayde Ceron Total Blood Loss for PPH Event Quantitative Blood Loss: 1,165 (includes 400 cc blood loss immediately after ) Labs Drawn Labs Drawn: No
[2025-07-07 02:22] LABS: ALT 23 U/L (14-59); AST 31 U/L (15-37); Albumin 2.5 g/dL (3.4-5.0); Alkaline Phosphatase 149 U/L (46-116); Anion Gap 10.0 mmol/L (3-11); BUN 10 mg/dL (7-18); Bilirubin, Total 0.2 mg/dL (0.2-1.0); CO2 23.0 mmol/L (21.0-32.0); Calcium 8.4 mg/dL (8.5-10.1); Chloride 104 mmol/L (98-107); Estimated GFR 114.16 (mL/min/1.73m2); Glucose 99 mg/dL (74-106); Potassium 4.2 mmol/L (3.5-5.1); Sodium 137 mmol/L (136-145); Total Protein 6.7 g/dL (6.4-8.2)
[2025-07-07] MEDS: CLINDAMYCIN 900 MG/50 ML BAG 50 MG IVPB (02:44)
[2025-07-07 03:02] LABS: Abs Immature Grans 0.03 10^3/uL (0.0-0.06); Immature Grans % 0.3 %
[2025-07-07] MEDS: RHO(D) Immune Globulin 1,500 UNIT Syringe 1500 UNIT IM (11:44)
--- NOTE | 2025-07-07 13:55 | W.PM.OBPNV1 ---
Date of service: 07/07/25 Time of Service: 13:55 Assessment and Plan Assessment and plan (1) Normal spontaneous vaginal delivery: Status: Acute Assessment and plan: Patient is day #3 status post vaginal complicated by delayed hemorrhage of 1200 cc and chorioamnionitis. She has been on triple antibiotic therapy. Tmax 99. During the time where her temperature was slightly elevated at 99, patient did experience shaking chills. She was evaluated laboratory studies done at that point. She remained stable and her vital signs are appropriate. Laboratory studies are unchanged. At this point, she will be transitioned from IV antibiotics to oral antibiotics. She will continue to be observed in hospital for the remainder of the day at night tonight. If stable, and afebrile, anticipate discharge home 07/08/2025. (2) hemorrhage: Status: Acute (3) Chorioamnionitis: Status: Acute Subjective Subjective Interval history: Patient seen and examined this morning. Overall doing better than last night. Her shakiness has improved. She has been ambulatory. She is eating a regular diet and tolerating this without difficulty. CBC appears improved. Hemoglobin is stable at 9.3. We do lengthy conversation today regarding transition from IV antibiotics to oral antibiotics. I would like to keep her in house for another 24 hours in order to assure her afebrile state and to monitor symptomatology. She and her are in agreement with this. She will continue to ambulate today. She is working on sleep and breast-feeding and routine care. Exam Physical Exam Vital signs: Temp Pulse Resp BP Pulse Ox 98.2 F 65 18 112/65 98 07/07/25 11:54 07/07/25 11:54 07/07/25 11:54 07/07/25 11:54 07/07/25 11:54 Vital Signs Reviewed: Yes Narrative: Tmax 99.0 Constitutional Constitutional: no acute distress HEENT Exam HEENT Exam: Normal Neck Exam Neck Exam: Normal Respiratory Exam Respiratory Exam: Normal Cardiovascular Exam Cardiovascular Exam: Normal Abdominal Exam Abdomen: Tender Fundal Exam Fundus: Below Umbilicus and Firm Results Hemoglobin/Hematocrit: Hgb 9.3 g/dL (11.2-15.7) L 07/07/25 01:55 Hct 27.6 % (36.0-46.0) L 07/07/25 01:55 Abnormal Lab Findings: Abnormal Labs 07/05/25 07/05/25 07/06/25 03:08 17:35 06:17 WBC 14.78 H RBC 3.25 L 3.50 L Hgb 9.4 L 10.3 L Hct 34.4 L 27.3 L 30.7 L MPV 11.5 H 11.1 H Absolute Neutrophils 12.80 H Absolute Lymphocytes 1.05 L Absolute Monocytes 0.82 H Calcium Alkaline Phosphatase Albumin 07/07/25 01:55 WBC RBC 3.20 L Hgb 9.3 L Hct 27.6 L MPV Absolute Neutrophils Absolute Lymphocytes Absolute Monocytes Calcium 8.4 L Alkaline Phosphatase 149 H Albumin 2.5 L Hemorrrhage Note Hemorrhage Recognized Date Hemorrhage Recognized: 07/05/25 Time Hemorrhage Recognized: : Call for Help Date: 07/05/25 Time: 14:15 (2nd RN and provider already in room) 2nd RN in Room Date: 07/05/25 Time: 14:15 (present for delivery) 2nd RN: Vishnu Salgado Provider in Room Date: 07/05/25 Time: 14:15 (present for delivery) Provider: Myriam Kern Bimanual Uterine Compression Date: 07/05/25 Time: 14:21 RN Compensation Advisor Notified Date: 07/05/25 Time: 15:15 RN Compensation Advisor on Floor Date: 07/05/25 Time: 15:20 Compensation Advisor: Angélica Florez QBL Scale in Room Date: 07/05/25 Time: 15:20 OB Emergency Cart at Bedside Date: 07/05/25 Time: 15:20 Flores Catheter Urinary Catheter Date of Insertion: 07/05/25 Time of insertion: 16:00 Inserted by: Myriam ENCARNACION Second Provider in Room Date: 07/05/25 Time: 16:00 (called by telephone at 1600) Provider: Jayde Ceron Total Blood Loss for PPH Event Quantitative Blood Loss: 1,165 (includes 400 cc blood loss immediately after ) Labs Drawn Labs Drawn: No
[2025-07-07] MEDS: Amoxicillin 875/Clav. 125 TAB PO (20:15)
[2025-07-08 05:38] VITALS: BP 105/75; TEMP 36.7
[2025-07-08 09:00] VITALS: BP 112/73; PULSE 82; RESP 16; TEMP 36.7; O2SAT 99
--- NOTE | 2025-07-08 09:06 | OBPPV_ITS ---
Date of service: 07/08/25 Time of Service: 09:07 Assessment and Plan Assessment and plan (1) Normal spontaneous vaginal delivery: Status: Acute Assessment and plan: 3 days status post vaginal complicated by hemorrhage of 1200 cc and chorioamnionitis. Doing well today. Vital signs are stable. Hemoglobin has been stable. Her fever has resolved. She was transition biotics to oral antibiotics and is doing well. She will transition to a boarder status as baby is being evaluated for infection. All questions were answered. (2) hemorrhage: Status: Acute (3) Chorioamnionitis: Status: Acute Subjective Subjective Interval history: Patient seen today doing well. She is day #3 status post vaginal with a subsequent hemorrhage and chorioamnionitis. She had been on IV antibiotics for greater than 24 hours and is now afebrile. She was transitioned to Augmentin, 875 twice daily and remained afebrile. She will transition to a boarder status as her baby is being evaluated for infection. All questions were answered. Prescriptions to be sent to the pharmacy including ibuprofen, Augmentin, Colace, and a limited number of Ambien. Exam Physical Exam Vital signs: Temp Pulse Resp BP Pulse Ox 98.1 F 70 16 105/75 98 07/08/25 05:38 07/07/25 20:00 07/07/25 20:00 07/08/25 05:38 07/07/25 20:00 Vital Signs Reviewed: Yes Notable Details: Afebrile Constitutional Constitutional: no acute distress HEENT Exam HEENT Exam: Normal Neck Exam Neck Exam: Normal Respiratory Exam Respiratory Exam: Normal Cardiovascular Exam Cardiovascular Exam: Normal Abdominal Exam Comments: Soft, nontender. Overall very Skin Exam Skin Exam: Normal Neurological Exam Neurological Exam: Normal Psychiatric Exam Psychiatric Exam: Normal Results Hemoglobin/Hematocrit: Hgb 9.3 g/dL (11.2-15.7) L 07/07/25 01:55 Hct 27.6 % (36.0-46.0) L 07/07/25 01:55 Abnormal Lab Findings: Abnormal Labs 07/05/25 07/05/25 07/06/25 03:08 17:35 06:17 WBC 14.78 H RBC 3.25 L 3.50 L Hgb 9.4 L 10.3 L Hct 34.4 L 27.3 L 30.7 L MPV 11.5 H 11.1 H Absolute Neutrophils 12.80 H Absolute Lymphocytes 1.05 L Absolute Monocytes 0.82 H Calcium Alkaline Phosphatase Albumin 07/07/25 01:55 WBC RBC 3.20 L Hgb 9.3 L Hct 27.6 L MPV Absolute Neutrophils Absolute Lymphocytes Absolute Monocytes Calcium 8.4 L Alkaline Phosphatase 149 H Albumin 2.5 L Hemorrrhage Note Hemorrhage Recognized Date Hemorrhage Recognized: 07/05/25 Time Hemorrhage Recognized: : Call for Help Date: 07/05/25 Time: 14:15 (2nd RN and provider already in room) 2nd RN in Room Date: 07/05/25 Time: 14:15 (present for delivery) 2nd RN: Vishnu Salgado Provider in Room Date: 07/05/25 Time: 14:15 (present for delivery) Provider: Myriam Kern Bimanual Uterine Compression Date: 07/05/25 Time: 14:21 RN Computer Forensics Technician Notified Date: 07/05/25 Time: 15:15 RN Computer Forensics Technician on Floor Date: 07/05/25 Time: 15:20 Computer Forensics Technician: Angélica Florez QBL Scale in Room Date: 07/05/25 Time: 15:20 OB Emergency Cart at Bedside Date: 07/05/25 Time: 15:20 Flores Catheter Urinary Catheter Date of Insertion: 07/05/25 Time of insertion: 16:00 Inserted by: Myriam Negro CNM Second Provider in Room Date: 07/05/25 Time: 16:00 (called by telephone at 1600) Provider: Jayde Ceron Total Blood Loss for PPH Event Quantitative Blood Loss: 1,165 (includes 400 cc blood loss immediately after ) Labs Drawn Labs Drawn: No
--- NOTE | 2025-07-08 09:15 | DSE_ITS ---
Date of service: 07/08/25 Time of Service: 09:15 DS: Diagnosis Discharge Diagnosis (1) Normal spontaneous vaginal delivery: Status: Acute Asessment and Plan: Patient is day #3 status post vaginal at 40 weeks and 1 day. She had a prolonged labor course with prolonged rupture of membranes. Subsequent to her , she had a delayed hemorrhage of 1200 cc. This responded to uterine evacuation manually and uterotonic's. She subsequently developed a fever of 101.2 and was placed empirically on triple antibiotics for suspected chorioamnionitis. She over the course of a pproximately 36 hours defervesced and was transition from IV to oral antibiotics. She is in stable condition for discharge home. She will be transition to a boarder status due to the fact that her is being evaluated for infection. Will continue to monitor and follow-up closely as an outpatient. Prescriptions were sent to the pharmacy which include, ibuprofen, acetaminophen, Augmentin to be taken twice daily to complete a 10-day course of antibiotic therapy, Colace, Ambien for sleep if needed. She continues to work on breast-feeding. (2) hemorrhage: Status: Acute (3) Chorioamnionitis: Status: Acute Discharge Plan Disposition Patient Disposition: Home Condition: Good Discharge Details Reason For Visit: Labor Admit Date/Time: 07/05/25 02:44 Admit Provider: Myriam Kern Attending Provider: Myriam Kern Primary Care Provider: Paula Grey Hospital Course Hospital Course: Patient was admitted to the center and active labor. Initially she reported rupture of membranes which was 12 hours to delivery, however on further questioning her rupture of membranes may have been significantly earlier than that. She had a somewhat prolonged labor course however went on to deliver vaginally a viable male infant weighing 8 pounds 15 ounces. She had a first- degree perineal laceration at that point. Subsequent to her delivery, she had a total qualitative blood loss of 1200 cc. She most likely had uterine atony which resolved with uterotonic's. Shortly thereafter, she also developed a significant fever of 101.2. With her suspected prolonged rupture of membranes she was placed empirically on IV antibiotics, triple therapy with ampicillin, gentamicin, and clindamycin. Gradually over the course of approximately 36 hours, she defervesced and was more stable. She was transition from IV antibiotics to oral antibiotics with Augmentin which she will complete a 10-day course. She was transition from an inpatient status to a boarder status due to the fact that her baby is being evaluated for infection. She will follow-up in the office in 1 week. Home Meds and New Rx's Prescriptions: New amoxicillin-pot clavulanate 875-125 mg tablet 1 tab PO BID Qty: 16 0RF ibuprofen 600 mg tablet 600 mg PO Q6H PRNQty: 60 0RF docusate sodium [Colace] 100 mg capsule 100 mg PO BID Qty: 30 0RF acetaminophen 500 mg tablet 1,000 mg PO Q6H PRNQty: 60 0RF zolpidem [Ambien] 5 mg tablet 5 mg PO QHS Qty: 4 0RF No Action aspirin 81 mg tablet 81 mg PO DAILY prenat.vits,jeffery,lfp-[id number] Tablet 1 tab PO DAILY Fish Oil 100-160-1,000 mg capsule 1 cap PO 1XD docusate sodium [Colace] 100 mg capsule 100 mg PO BID Qty: 60 4RF Discharge Instructions Activity:: Pelvic rest Equipment/Supplies:: No Equipment Needed Diet:: As Tolerated Discharge Orders Discharge Orders: Discharge Order (Routine); Ordered 07/08/25 Ordered By: Jayde Ceron OB:DS Summary Summary Vaginal Delivery Method: Spontaneaous Episiotomy Description: None Laceration Description: Perineal Laceration Extension: First Degree Contraception Discussed Contraception Discussed: No, Infant Gender-Baby A: Male weight: 8 lb 15.389 oz Status at Discharge Functional status at discharge: independent ambulation Overall status at discharge: patient is progressing back to baseline Mental Status: mental status grossly normal Speech and Movement: speech and movement normal Mood: congruent mood Affect: normal affect Quality:SDOH Health Related Social Needs: Health related social needs details N/A Health related social needs details: N/A Exam Physical Exam Vital signs: Temp Pulse Resp BP Pulse Ox 98.1 F 70 16 105/75 98 07/08/25 05:38 07/07/25 20:00 07/07/25 20:00 07/08/25 05:38 07/07/25 20:00 Narrative: See physical exam from progress note dated 09/07/2025. 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 Depression buproprion in the past Anxiety Surgical History No significant past surgical history Family History (Updated 07/12/22 @ 09:46 by Myriam Kern CNM) Maternal Grandfather Heart disease Paternal Grandfather Cancer Social History (Updated 02/16/23 @ 17:28 by Sherrill Gardiner MD) Smoking/Tobacco Use Status: Never Smoking risk assessment performed?: Yes Alcohol Intake: former Drug use: Occasionally Substance use type: does not use Details: mushrooms, t-14, alcohol, t-3 Household members: spouse, children and other Details: Etienne Ozuna Housing: house Number of Children: 1 Current gender identity: female Do you feel safe at home: Yes Do you feel safe in your relationship?: Yes History History 2 Para 1 Hx # Term Pregnancies 1 Multiple births 0 Hx # Pregnancies 0 Ectopic pregnancies 0 AB induced 0 Hx Number of Living Children 1 AB spontaneous 0 Past Pregnancies Del. Date GA/Weeks # Preg Succ Route Wgt Sex Labor Lgth Anesth esia Location [facility] 01/30/23 39 No Yes vaginal 8 lb 4 oz Female [facility] Adam Gardiner third degree laceration Delivery Date: 01/30/23 Last Updated by: Myriam Kern CNM PROM, IOL, midline episiotomy, vacuum assist for maternal exhaustion. [place] DS: Data Vitals/I&O Vitals and I&O: Vital Signs Temperature 98.1 F 07/08/25 05:38 Temperature 97.6 F 07/05/25 04:06 Temperature Source Oral 07/08/25 05:38 Pulse 70 07/07/25 20:00 Pulse 70 07/05/25 04:06 Pulse Rhythm Regular 07/07/25 20:00 Respiratory Rate 16 07/07/25 20:00 Respiratory Depth Normal 07/06/25 20:00 Blood Pressure 105/75 07/08/25 05:38 Blood Pressure 120/72 07/05/25 04:06 Blood Pressure Mean 85 07/08/25 05:38 Pulse Oximetry 98 07/07/25 20:00 Oxygen Delivery Method Room Air 07/05/25 03:01 Oxygen Flow Rate 0 07/05/25 03:01 Pain Level 0 07/07/25 01:38 Comment patient denies feeling dizzy or lightheaded 07/07/25 08:15 Intake & Output 07/07/25 07/07/25 07/08/25 11:59 23:59 11:59 Intake Total 750 / 750 Output Total 2250 / 2250 Balance -1500 / -1500 Intake: IV 150 / 150 Oral 600 / 600 Output: Urine 2250 / 2250 Data Completed and Pending Labs on day of discharge: Labs from last 24 hours 07/05/25 03:08 ABO/Rh A Negative Antibody Screen POSITIVE Antibody Identification Anti-D Rhogam Unit Number [id number] Unit Expiration Date 12/15/25 Product Lot # [id number]
[2025-07-08] MEDS: Amoxicillin 875/Clav. 125 TAB PO (10:22)
[2025-07-08 16:14] VITALS: BP 119/73; PULSE 75; RESP 18; TEMP 36.9; O2SAT 98
== END 2025-07-08 16:15 | disposition home or self-care (01) | DRG 806 ==
LOC: BCD 07-06 04:49 → OBS 07-06 04:49
PROVIDERS: Obstetrics & Gynecology; Admitting Provider Advanced Practice Midwife; PCP Nurse Practitioner Family; Visit Provider Advanced Practice Midwife
DX: O41.1230 Chorioamnionitis, third trimester, not applicable or unspecified (principal); O72.1 Other immediate postpartum hemorrhage; Z37.0 Single live birth; Z3A.40 40 weeks gestation of pregnancy; O70.0 First degree perineal laceration during delivery
CPT/HCPCS: 36415; 80053; 84112; 85027; 85461; 86850; 86900; 86901; 90384; 59025; 83605; 85007; 85025; 86870; J0290; J0737; J1580; J2003; J2590; J2790

== ENCOUNTER 2025-07-09 08:21 | Outpatient (CLI) | payer OTHER, SELFPAY ==
[2025-07-09 11:12] LABS: Abs Immature Grans 0.02 10^3/uL (0.0-0.06); HCT 34.2 % (36.0-46.0); HGB 10.9 g/dL (11.2-15.7); Immature Grans % 0.3 %; MCH 28.4 pg (27.0-33.0); MCHC 31.9 % (32.0-36.0); MCV 89 fL (80-95); MPV 9.0 fL (8.0-11.0); Platelet Count 329 10^3/uL (130-400); RBC 3.84 10^6/uL (3.93-5.22); RDW 14.2 % (11.7-14.6); RDW-SD 45.6 fL; WBC 7.59 10^3/uL (4.4-10.8)
== END 2025-07-09 08:22 | disposition home or self-care (01) ==
PROVIDERS: PCP Nurse Practitioner Family; Visit Provider Advanced Practice Midwife
DX: O86.4 Pyrexia of unknown origin following delivery (principal)
CPT/HCPCS: 36415; 85025